=== PATIENT | female | born 1985 | race Caucasian/White ===

== ENCOUNTER 2016-05-13 20:44 | Emergency (ER) | payer MEDICAID ==
[2016-05-13] MEDS ORDERED: DIAZEPAM 2 MG TABLET PO ONE (22:23)
--- NOTE | 2016-05-13 22:45 | ER Document Report ---
ED General - General Chief Complaint: Psych Problem Stated Complaint: PANIC ATTACK TRAVEL OUTSIDE OF THE [place] IN LAST 30 DAYS: No - HPI Patient complains to provider of: manic Notes: Patient coming in for evaluation initially of anxiety. Patient has latter-day preoccupation stating that the Holy Ghost has impregnated her states that she needs Valium or Ativan to control her anxiety and also to help the anxiety that the baby is currently having. Patient states she has been compliant with her medications and very insistent on receiving a prescription for Valium Xanax or Ativan. Otherwise patient denies any homicidal suicidal ideation. Patient has a history of bipolar disease multiple psychiatric evaluations to this facility in the past. - Related Data Allergies/Adverse Reactions: latex [Latex] Allergy (Verified 05/14/16 00:38) Home Medications: Current Home Medications Benztropine Mesylate [Cogentin 1 mg Tablet] 1 mg PO DAILY 05/14/16 [History] Past Medical History - General Information source: Emergency Med Personnel - Social History Smoking Status: Unknown if Ever Smoked Family History: Reviewed & Not Pertinent Patient has suicidal ideation: No Patient has homicidal ideation: No Pulmonary Medical History: Reports: Hx Asthma Psychiatric Medical History: Reports: Hx Anxiety, Hx Bipolar Disorder Past Surgical History: Reports: Hx Section - x1 - Immunizations Hx Diphtheria, Pertussis, Tetanus Vaccination: No Review of Systems - Review of Systems Constitutional: No symptoms reported EENT: No symptoms reported Cardiovascular: No symptoms reported Respiratory: No symptoms reported Gastrointestinal: No symptoms reported Genitourinary: No symptoms reported Female Genitourinary: No symptoms reported Musculoskeletal: No symptoms reported Skin: No symptoms reported Hematologic/Lymphatic: No symptoms reported Neurological/Psychological: Anxiety, Other - Psychosis -: Yes All other systems reviewed and negative Physical Exam - Vital signs Vitals: Pulse Resp BP Pulse Ox 103 H 20 147/88 H 100 05/13/16 21:00 05/13/16 21:00 05/13/16 21:00 05/13/16 21:00 Interpretation: Normal - General General appearance: Appears well, Alert - HEENT Head: Normocephalic, Atraumatic Eyes: Normal Pupils: PERRL - Respiratory Respiratory status: No respiratory distress Chest status: Nontender Breath sounds: Normal Chest palpation: Normal - Cardiovascular Rhythm: Regular Heart sounds: Normal auscultation Murmur: No - Abdominal Inspection: Normal Distension: No distension Bowel sounds: Normal Tenderness: Nontender Organomegaly: No organomegaly - Back Back: Normal, Nontender - Extremities General upper extremity: Normal inspection, Nontender, Normal color, Normal ROM , Normal temperature General lower extremity: Normal inspection, Nontender, Normal color, Normal ROM , Normal temperature, Normal weight bearing. No: Jeancarlos's sign - Neurological Neuro grossly intact: Yes Cognition: Normal Orientation: AAOx4 [place] Coma Scale Eye Opening: Spontaneous Derrick Coma Scale Verbal: Oriented [place] Coma Scale Motor: Obeys Commands [place] Coma Scale Total: 15 Speech: Normal Motor strength normal: LUE, RUE, LLE, RLE Sensory: Normal - Psychological Associated symptoms: Anxious, Rastafari preoccupation - Skin Skin Temperature: Warm Skin Moisture: Dry Skin Color: Normal Course - Re-evaluation Re-evalutation: 05/14/16 04:31 Patient's lab work shows that the patient is not . Patient was given a dose of Valium and a dose of his otitis initially to calm her down. Patient will be held for psychiatric evaluation in the morning. Otherwise laboratory studies have no acute findings. - Vital Signs Vital signs: Temp Pulse Resp BP Pulse Ox 98.2 F 97 20 147/88 H 99 05/13/16 21:02 05/13/16 21:02 05/13/16 21:02 05/13/16 21:02 05/13/16 21:02 - Laboratory Result Diagrams: 05/13/16 22:47 05/13/16 22:47 Laboratory results interpreted by me: 05/13/16 05/13/16 22:47 22:47 WBC 11.7 H RDW 15.2 H Carbon Dioxide 21 L Salicylates < 1.0 L Acetaminophen < 10 L Discharge - Discharge Clinical Impression: Psychosis Qualifiers: Psychosis type: unspecified psychosis type Qualified Code(s): F29 - Unspecified psychosis not due to a substance or known physiological condition Condition: Fair Disposition: PSYCH HOSP/UNIT Referrals: ROSHAN ODELL DO [Primary Care Provider] - Follow up as needed
[2016-05-13 23:03] LABS: ABSOLUTE LYMPHOCYTES (AUTO) 4.2 10^3/uL (0.5-4.7); ABSOLUTE NEUT (AUTO) 6.5 10^3/uL (1.7-8.2); BASOPHILS % (AUTO) 0.2 % (0-2); EOSINOPHILS % (AUTO) 0.1 % (0-6); HEMATOCRIT 38.7 % (36.0-47.0); HEMOGLOBIN 12.7 g/dL (12.0-15.5); HGB HCT DIFFERENCE -0.6; LYMPHOCYTES % (AUTO) 35.6 % (13-45); MEAN CORPUSCULAR HEMOGLOBIN 27.5 pg (27.0-33.4); MEAN CORPUSCULAR HGB CONC 32.9 g/dL (32.0-36.0); MEAN CORPUSCULAR VOLUME 83 fl (80-97); MONOCYTES % (AUTO) 8.2 % (3-13); RED BLOOD COUNT 4.64 10^6/uL (3.72-5.28); RED CELL DISTRIBUTION WIDTH 15.2 % (11.5-14.0); SEGMENTED NEUTROPHILS % (AUTO) 55.9 % (42-78); WHITE BLOOD COUNT 11.7 10^3/uL (4.0-10.5)
[2016-05-13 23:26] LABS: ALANINE AMINOTRANSFERASE 41 U/L (9-52); ALBUMIN 4.4 g/dL (3.5-5.0); ALKALINE PHOSPHATASE 70 U/L (38-126); ANION GAP 14 (5-19); ASPARTATE AMINO TRANSFERASE 23 U/L (14-36); BILIRUBIN,TOTAL 0.4 mg/dL (0.2-1.3); BLOOD UREA NITROGEN 15 mg/dL (7-20); CALCIUM 9.9 mg/dL (8.4-10.2); CARBON DIOXIDE 21 mmol/L (22-30); CHLORIDE 107 mmol/L (98-107); CREATININE RESULT 0.67 mg/dL (0.52-1.25); GLUCOSE 84 mg/dL (75-110); POTASSIUM 4.2 mmol/L (3.6-5.0); SODIUM 141.9 mmol/L (137-145); TOTAL PROTEIN 7.2 g/dL (6.3-8.2)
[2016-05-13 23:28] LABS: ALCOHOL < 10 mg/dL (NONE DETECTED)
[2016-05-13] MEDS ORDERED: OLANZAPINE 5 MG TAB.RAPDIS PO ONE (23:28)
[2016-05-13 23:44] LABS: APPEARANCE,URINE CLEAR; BILIRUBIN,URINE NEGATIVE (NEGATIVE); GLUCOSE, URINE NEGATIVE (NEGATIVE); KETONES,URINE NEGATIVE (NEGATIVE); LEUKOCYTE ESTERASE,URINE NEGATIVE (NEGATIVE); NITRITE,URINE NEGATIVE (NEGATIVE); PROTEIN,URINE NEGATIVE (NEGATIVE); URINE SPECIFIC GRAVITY 1.014; UROBILINOGEN,URINE NEGATIVE mg/dL (<2.0)
[2016-05-13 23:58] LABS: URINE BARBITURATES SCREEN NEGATIVE; URINE METHADONE SCREEN NEGATIVE; URINE PHENCYCLIDINE SCREEN NEGATIVE
--- NOTE | 2016-05-14 00:01 | EKG REPORT ---
SEVERITY:- BORDERLINE ECG - SINUS RHYTHM INFERIOR Q WAVES, PROBABLY NORMAL VARIATION BORDERLINE PROLONGED QT INTERVAL : Confirmed by: Katya Ya 14-May-2016 00:00:25
[2016-05-14] MEDS ORDERED: MULTIVITAMIN TABLET PO SCH (10:00)
[2016-05-14] MEDS ORDERED: OLANZAPINE 5 MG TABLET PO SCH (10:00)
[2016-05-14] MEDS ORDERED: (PENDING PHARMACY ID) (Lurasidone Hcl [Latuda] 60 MG) PO SCH (10:00)
[2016-05-14] MEDS ORDERED: BENZTROPINE MESYLATE 1 MG TABLET PO SCH (10:00)
--- NOTE | 2016-05-14 10:07 | ER Document Report ---
Doctor's Note Notes: 05/14/16 10:06 Rounds: Chart reviewed and patient interviewed. Requesting Valium for her anxiety and panic attacks. Will order Vistaril. Vital signs all been normal. Lab studies showed a white count of 11,700, probably of no clinical significance , and otherwise all lab studies were normal. Patient was described as being likely psychotic on her arrival, but seems to be much calmer now and answering questions appropriately. She has received some Zyprexa as well as Thorazine. Patient appears to be medically stable for transfer or discharge. Jolene Veras M.D.
[2016-05-14] MEDS ORDERED: HYDROXYZINE PAMOATE 50 MG CAPSULE PO ONE (10:08)
--- NOTE | 2016-05-14 12:19 | PSYCHOLOGICAL NOTE ---
Psych Note - Psych Note Psych Note: Patient is a 30 year old female who presented overnight after calling EMS with c /o anxiety. Note, patient is well known to this clinician and this Department for multiple prior episodes of similar etiology. Also note, patient's baseline functioning includes chronic reports/delusions of , rape, delivering babies, someone breaking into her home to rape her or her mother, etc. Additionally, patient often requests medication to assist with her "nerves" or to help her sleep, as was the case again today despite her sleeping upon me entering the room. Patient states she called 911 because she was anxious, but reports she "doesn't want to get into all that." Patient did state she did not want to hurt herself or anyone else. [facility] state they did not know the patient was here, but are happy to come help her home. Worker reports the patient did not call the crisis phone to report anxiety. [facility] reports no new concerns with the patient and state last known verbal contact with her was yesterday. Patient was A&O. Mood was euthymic with normal affect. Patient denies suicidal/ homicidal ideations, intent, plan, or means. Patient denies A/ Vh; delusions were noted. Thought processes were guarded. Conversational speech was WNL for this patient. Intellectual abilities were estimated within lower average range. Attention and focus were poor. Insight, judgment, and impulse control were poor. 295.70 (F25.0) Schizoaffective Disorder, Bipolar type, per history Patient is recommended for rescind IVC and psychiatrically cleared for discharge. Patient is considered to be at her baseline, as outlined above. Patient has a lengthy history of frequently calling EMS when upset, or due to her delusions regarding rape and or . Patient's [facility] provider, [facility] reports they will present and transport the patient home, and work with her to transition her back into her home environment. Note, patient was just discharged from the ED last week. I consulted with Dr. Castaneda in regards to the care and management of this patient.
[2016-05-14 13:26] VITALS: BP 123/70
[2016-05-14] MEDS ORDERED: CHLORPROMAZINE HCL 50 MG TABLET PO SCH (16:00)
== END 2016-05-14 13:26 | disposition home or self-care (01) ==
LOC: ER 20:44
DX: F29 Unspecified psychosis not due to a substance or known physiological condition (principal); F41.9 Anxiety disorder, unspecified; F25.0 Schizoaffective disorder, bipolar type
CPT/HCPCS: 93005; 99285; 36415; 84703; 85025; 80053; 81001; 93010; G0479 ×4; J3490 ×5; 80307

== ENCOUNTER 2016-05-18 17:21 | Emergency (ER) | payer MEDICAID, OTHER ==
--- NOTE | 2016-05-18 17:31 | ER Document Report ---
ED Medical Screen (RME) - General Stated Complaint: ANKLE PAIN Mode of Arrival: Medic Information source: Patient Notes: pt rolled ankle after stepping out of her house. Pt c/o pain to left ankle. EMS reports she ambulated without difficulty TRAVEL OUTSIDE OF THE [place] IN LAST 30 DAYS: No - Related Data Allergies/Adverse Reactions: latex [Latex] Allergy (Verified 05/18/16 17:28) Past Medical History Pulmonary Medical History: Reports: Hx Asthma Psychiatric Medical History: Reports: Hx Anxiety, Hx Bipolar Disorder Past Surgical History: Reports: Hx Section - x1 - Immunizations Hx Diphtheria, Pertussis, Tetanus Vaccination: No Physical Exam - Extremities General lower extremity: Tender - left ankle
--- NOTE | 2016-05-18 17:47 | ER Document Report ---
ED Extremity Problem, Lower - General Chief Complaint: Ankle Injury Stated Complaint: ANKLE PAIN Mode of Arrival: Medic Notes: The patient is a 30-year-old female, past medical history bipolar, presents with left ankle pain after she rotated the ankle stepping out of the door. She is now having pain and swelling and is requesting an Cem wrap and Tylenol. She is ambulating on scene when the ambulance arrived. She denies numbness, tingling, difficulty walking, rash or open wounds. TRAVEL OUTSIDE OF THE [place] IN LAST 30 DAYS: No - Related Data Allergies/Adverse Reactions: latex [Latex] Allergy (Verified 05/18/16 17:28) Past Medical History - General Information source: Patient - Social History Smoking Status: Unknown if Ever Smoked Chew tobacco use (# tins/day): No Frequency of alcohol use: None Drug Abuse: None Family History: Reviewed & Not Pertinent Patient has suicidal ideation: No Patient has homicidal ideation: No Pulmonary Medical History: Reports: Hx Asthma Psychiatric Medical History: Reports: Hx Anxiety, Hx Bipolar Disorder Past Surgical History: Reports: Hx Section - x1 - Immunizations Hx Diphtheria, Pertussis, Tetanus Vaccination: No Review of Systems - Review of Systems Notes: REVIEW OF SYSTEMS: CONSTITUTIONAL: -fevers, -chills EENT: Denies eye, ear, throat, or mouth pain or symptoms. Denies nasal or sinus congestion. CARDIOVASCULAR: Denies chest pain, syncope. RESPIRATORY: Denies cough, cold, or chest congestion. Denies shortness of breath, difficulty breathing, or wheezing. GASTROINTESTINAL: Denies abdominal pain. Denies nausea, vomiting, or diarrhea. Denies constipation. GENITOURINARY: Denies difficulty urinating, painful urination, burning, frequency, or blood in urine. MUSCULOSKELETAL: Denies neck or back pain. Left ankle pain and swelling. SKIN: Denies rash or skin lesions. HEMATOLOGIC: Denies easy bruising or bleeding. LYMPHATIC: Denies swollen, enlarged glands. NEUROLOGICAL: Denies altered mental status or loss of consciousness. Denies headache. Denies weakness or paralysis or loss of use of either side. Denies problems with gait or speech. Denies sensory or motor loss. PSYCHIATRIC: Denies anxiety or stress or depression. ALL OTHER SYSTEMS REVIEWED AND NEGATIVE. Physical Exam - Vital signs Vitals: Temp Pulse Resp BP Pulse Ox 97.4 F 105 H 22 H 124/82 98 05/18/16 17:28 05/18/16 17:28 05/18/16 17:28 05/18/16 17:28 05/18/16 17:28 - Notes Notes: PHYSICAL EXAMINATION: GENERAL: Well-appearing, well-nourished and in no acute distress. HEAD: Atraumatic, normocephalic. EYES: Pupils equal round and reactive to light, extraocular movements intact, sclera anicteric, conjunctiva are normal. ENT: nares patent, oropharynx clear without exudates. Moist mucous membranes. NECK: Normal range of motion, supple without lymphadenopathy LUNGS: Breath sounds clear to auscultation bilaterally and equal. No wheezes rales or rhonchi. HEART: Regular rate and rhythm without murmurs ABDOMEN: Soft, nontender, normoactive bowel sounds. No guarding, no rebound. No masses appreciated. EXTREMITIES: Normal range of motion, no pitting or edema. No cyanosis. Mild left ankle swelling, left distal fibula tenderness. NEUROLOGICAL: Cranial nerves grossly intact. Normal speech, normal gait. Normal sensory, motor, and reflex exams. PSYCH: Normal mood, normal affect. SKIN: Warm, Dry, normal turgor, no rashes or lesions noted. Course - Re-evaluation Re-evalutation: Patient has very small avulsion fracture of the distal tip of her fibula. No base of fifth metatarsal tenderness. N/V intact distally. Will place patient in ankle splint and provide crutches with follow-up at orthopedic. - Vital Signs Vital signs: Temp Pulse Resp BP Pulse Ox 97.4 F 105 H 14 124/82 98 05/18/16 17:28 05/18/16 17:28 05/18/16 18:26 05/18/16 17:28 05/18/16 17:28 - Diagnostic Test Radiology reviewed: Image reviewed, Reports reviewed Radiology results interpreted by me: Small avulsion fracture of the distal tip of the left fibula. Procedures - Immobilization Left Ankle Pre-Proc Neuro Vasc Exam: Normal Immobilizer type: Ankle stirrup, Crutches Performed by: PCT Post-Proc Neuro Vasc Exam: Normal Alignment checked and good: Yes Discharge - Discharge Clinical Impression: Fracture of distal end of left fibula Qualifiers: Encounter type: initial encounter Fracture type: closed Fracture morphology: other fracture Qualified Code(s): S82.832A - Other fracture of upper and lower end of left fibula, initial encounter for closed fracture Condition: Good Disposition: HOME, SELF-CARE Additional Instructions: Fracture of Distal Fibula You have a very small avulsion fracture at the end of the fibula, the smaller bone in the lower leg. The fracture is across the bony bump on the outer side of the ankle. This fracture will usually heal well, but must be protected from the pull of ligaments and tendons at the ankle. If this fracture rotates out of position (or is felt likely to rotate), it must be operated on. Initially, the extremity should be kept elevated, with ice packs applied frequently. This fracture is usually treated with a cast or walking boot. If a walking boot has been selected, it's critical that it NOT be removed without the doctor's approval, not even for sleeping or baths. Healing of this fracture takes about four to eight weeks. Younger patients heal more quickly. An X-ray is usually required during healing to check for complications and to assess healing. Call the doctor or return at once if there is severe swelling, increasing pain, or numbness in the foot. SPRAIN: Your injury is a sprain. A sprain results from stretching or tearing of the ligaments, usually from a twisting injury. The ligaments will require time and protection in order to heal properly. Many sprains are quite disabling and should be taken seriously. The usual initial treatment of sprains is cold packs, elevation, and rest of the injured area. Your physician has assessed the seriousness of your ligament injury, and has outlined a treatment plan. Understand that this treatment may change, depending on how you progress. If a re-examination was recommended, it is important that you follow up as instructed. Call the doctor any time if there is severe pain, numbness, or loss of function in the injured area. CEM WRAP: A compression dressing (cem wrap) has been placed. This helps hold the area still. It limits swelling and internal bleeding. The wrap should be comfortably snug -- not tight. You should feel a sense of pressure, but not severe pain under the wrap. Unless the physician tells you otherwise, you can adjust the wrap for comfort. If the wrap causes symptoms suggesting it's too tight -- uncomfortable pressure, swelling or discoloration beyond the wrap, numbness, or severe pain - - you must loosen the wrap. If these symptoms don't resolve promptly, return for re-evaluation. SPRAINED ANKLE: Your sprained ankle results from stretching or tearing of the ligaments which support the ankle. This usually results from twisting the foot inward and under. The ligaments will require time and protection in order to heal properly. Many ankle sprains are quite disabling, and should be taken seriously. The usual treatment for an ankle sprain is cold packs; protection with tape , splints, or wraps; elevation; and staying off the ankle for at least a day. As the ankle improves, you can walk IF it's not painful to bear weight. Sports are best postponed until healing is complete. More serious sprains usually require strengthening exercises after early healing. Your physician has assessed the seriousness of the ligament injury to your ankle. However, the treatment may change, depending on how your ankle progresses. If further exams were recommended, it is important that you follow through. Call the doctor if your foot becomes numb, painful, or severely swollen. ICE & ELEVATION: Apply ice packs frequently against the painful area. Many different schedules are recommended, such as "20 minutes on, 20 minutes off" or "one hour ice, two hours rest." If you need to work, you may need to go longer between ice treatments. You should plan to have the area ice packed AT LEAST one- fourth of the time. The ice should be applied over the wrap, tape, or splint, or over a layer of cloth -- not directly against the skin. Some ice bags have a built-in cloth and can be put directly on the skin. Your injured part should be elevated as much as possible over the next 48 hours. Try to keep the injury above the level of the heart. Avoid use of the injured area. Elevation and rest will decrease the swelling. USE OF [id number] IBUPROFEN: Ibuprofen (Advil, Nuprin, Medipren, Motrin IB) is a medication for fever and pain control. In addition, it has anti- inflammatory effects which may be beneficial, especially in the treatment of injuries. It's best to take ibuprofen with food. Persons with ulcer disease or allergy to aspirin should notify their physician of this before taking ibuprofen. Ibuprofen can be given every four to six hours, for a total of four doses daily. Age Pain or fever dose Antiinflammatory dose 6-8 yr 200 mg (1 tab) 200 mg (1 tab) 9-11 yr 200 mg (1 tab) 200-400 mg (1-2 tab) 11-14 yr 200-400 mg (1-2 tab) 400 mg (2 tab) 15-adult 400 mg (2 tab) 600 mg (3 tab) ORAL NARCOTIC MEDICATION: You have been given a prescription for pain control. This medication is a narcotic. It's best taken with food, as nausea can result if taken on an empty stomach. Don't operate machinery or drive within six hours of taking this medication. Do not combine this medicine with alcohol, or with any medication which can cause sedation (such as cold tablets or sleeping pills) unless you get permission from the physician. Narcotics tend to cause constipation. If possible, drink plenty of fluids and eat a diet high in fiber and fruits. Please be aware that prescription narcotics also have the potential for abuse. People become addicted to these medications because of the general sense of wellbeing that they induce. This feeling along with a significant reduction in tension, anxiety, and aggression provides a stimulating seductive quality to these drugs. Once your pain is under control, we encourage you to discard your unused narcotics. FOLLOW-UP CARE: If you have been referred to a physician for follow-up care, call the physician s office for an appointment as you were instructed or within the next two days. If you experience worsening or a significant change in your symptoms, notify the physician immediately or return to the Emergency Department at any time for re-evaluation. Prescriptions: Ibuprofen [Motrin 600 Mg Tablet] 600 mg PO TID #15 tablet Referrals: LIN GONSALVES MD [ACTIVE STAFF] - Follow up as needed
[2016-05-18] MEDS ORDERED: IBUPROFEN 600 MG TABLET PO ONE (18:19)
[2016-05-18 18:36] VITALS: BP 122/78
== END 2016-05-18 18:37 | disposition home or self-care (01) ==
LOC: ER 17:21
PROC: 2W3TX1Z Immobilization of Left Foot using Splint (ICD-10-PCS; principal; 2016-05-18)
DX: S82.832A Other fracture of upper and lower end of left fibula, initial encounter for closed fracture (principal); M25.572 Pain in left ankle and joints of left foot; X50.1XXA Overexertion from prolonged static or awkward postures, initial encounter
CPT/HCPCS: 99283; 73610; 29515; L1902; J3490

== ENCOUNTER 2016-05-31 09:09 | Emergency (ER) | payer MEDICAID, OTHER ==
[2016-05-31 09:23] VITALS: BP 122/75
--- NOTE | 2016-05-31 09:47 | ER Document Report ---
ED Neck/Back Problem - General Mode of Arrival: Ambulatory Information source: Patient TRAVEL OUTSIDE OF THE [place] IN LAST 30 DAYS: No - HPI Patient complains to provider of: Pain, Upper back Onset: This morning Where: Home Onset: Sudden - Upon awaking this morning Timing: Still present Associated symptoms: None - General Chief Complaint: Back Pain Stated Complaint: BACK PAIN Notes: Patient is a 30-year-old female presenting to the emergency department via EMS due to left upper back pain. Patient thinks that she may have pulled a muscle. Patient also states that she was recently taken off her Clonazepam because her doctor told her that is not something to stay on long-term. Patient requests that we prescribed her Clonazepam. After review of the controlled substance database, patient was given a one-month supply of clonazepam at the end of January, 1 month at the end of February, and then a few days later, she was given another 2 week supply, and finally one week after that she was given only a 3 day supply. Patient is now only regularly taking Zyprexa and Melatonin. (LETICIA SANTANA) - Related Data Allergies/Adverse Reactions: latex [Latex] Allergy (Verified 05/31/16 09:19) Past Medical History - General Information source: Patient - Social History Smoking Status: Current Some Day Smoker Chew tobacco use (# tins/day): No Frequency of alcohol use: None Drug Abuse: None Family History: Reviewed & Not Pertinent Patient has suicidal ideation: No Patient has homicidal ideation: No Pulmonary Medical History: Reports: Hx Asthma Renal/ Medical History: Denies: Hx Peritoneal Dialysis Psychiatric Medical History: Reports: Hx Anxiety, Hx Bipolar Disorder Past Surgical History: Reports: Hx Section - x1 - Immunizations Hx Diphtheria, Pertussis, Tetanus Vaccination: No Review of Systems - Review of Systems Constitutional: No symptoms reported EENT: No symptoms reported Cardiovascular: No symptoms reported Respiratory: No symptoms reported Gastrointestinal: No symptoms reported Genitourinary: No symptoms reported Female Genitourinary: No symptoms reported Musculoskeletal: See HPI, Back pain, Muscle pain Skin: No symptoms reported Hematologic/Lymphatic: No symptoms reported Neurological/Psychological: No symptoms reported -: Yes All other systems reviewed and negative Physical Exam - General General appearance: Appears well, Alert - HEENT Head: Normocephalic, Atraumatic Eyes: Normal Pupils: PERRL - Respiratory Respiratory status: No respiratory distress Breath sounds: Normal - Cardiovascular Rhythm: Regular Heart sounds: Normal auscultation Murmur: No - Abdominal Inspection: Normal Distension: No distension Bowel sounds: Normal Tenderness: Nontender Organomegaly: No organomegaly - Back Back: Tender - Tenderness over left trapezius - Extremities General upper extremity: Normal inspection General lower extremity: Normal inspection - Neurological Neuro grossly intact: Yes Cognition: Normal Derrick Coma Scale Eye Opening: Spontaneous [place] Coma Scale Verbal: Oriented [place] Coma Scale Motor: Obeys Commands [place] Coma Scale Total: 15 Speech: Normal Discharge - Discharge Clinical Impression: Strain of left trapezius muscle Qualifiers: Encounter type: initial encounter Qualified Code(s): S46.812A - Strain of other muscles, fascia and tendons at shoulder and upper arm level, left arm, initial encounter Condition: Stable Disposition: HOME, SELF-CARE Additional Instructions: Muscle Strain: You MAY have strained a muscle. This often occurs with strenuous exertion , or during an injury that suddenly stretches the muscle. The seriousness of a strain varies. Some strains heal within days, others cause problems for months. X-rays cannot show a muscle strain. X-rays are taken only if symptoms suggest that a fracture could be present. The usual treatment of a muscle strain is rest and ice packs. Sometimes, a sling, splint, or crutches may be necessary to rest the muscle. The muscle can be used again once pain subsides. Severe strains require a special exercise and stretching program to prevent permanent stiffness and disability. Your doctor will advise you if this will be necessary. Call the doctor immediately if pain or swelling becomes severe, or if numbness or discoloration develop. TAKE THE MUSCLE RELAXER PRESCRIBED FOR THE NEXT FEW DAYS. TAKE TYLENOL AND IBUPROFEN FOR PAIN IF NEEDED. FOLLOW UP WITH YOUR DOCTOR. Prescriptions: Cyclobenzaprine HCl [Flexeril 5 mg Tablet] 5 mg PO TID PRN #10 tablet PRN Reason: Scribe Attestation: 05/31/16 12:27 I personally performed the services described in the documentation, reviewed and edited the documentation which was dictated to the scribe in my presence, and it accurately records my words and actions. (DESTINY PELAEZ) Scribe Documentation - Scribe Written by Bc:: Leticia Santana 05/31/2016 0947 acting as scribe for :: Sravanthi
== END 2016-05-31 10:11 | disposition home or self-care (01) ==
LOC: ER 09:09
DX: S29.012A Strain of muscle and tendon of back wall of thorax, initial encounter (principal); X58.XXXA Exposure to other specified factors, initial encounter; F41.9 Anxiety disorder, unspecified; F31.9 Bipolar disorder, unspecified; J45.909 Unspecified asthma, uncomplicated; F17.200 Nicotine dependence, unspecified, uncomplicated; Z79.899 Other long term (current) drug therapy; Z91.040 Latex allergy status
CPT/HCPCS: 99283

== ENCOUNTER 2016-06-29 19:28 | Emergency (ER) | payer MEDICAID ==
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
[2016-06-29 20:18] LABS: ABSOLUTE EOSINOPHILS # (AUTO) 0.5 10^3/uL (0.0-0.6); ABSOLUTE LYMPHOCYTES (AUTO) 4.3 10^3/uL (0.5-4.7); ABSOLUTE MONOCYTES (AUTO) 0.8 10^3/uL (0.1-1.4); ABSOLUTE NEUT (AUTO) 5.3 10^3/uL (1.7-8.2); BASOPHILS % (AUTO) 0.4 % (0-2); EOSINOPHILS % (AUTO) 4.1 % (0-6); HEMOGLOBIN 12.2 g/dL (12.0-15.5); HGB HCT DIFFERENCE -0.4; LYMPHOCYTES % (AUTO) 39.1 % (13-45); MEAN CORPUSCULAR HEMOGLOBIN 27.7 pg (27.0-33.4); MEAN CORPUSCULAR VOLUME 84 fl (80-97); MONOCYTES % (AUTO) 7.6 % (3-13); RED BLOOD COUNT 4.41 10^6/uL (3.72-5.28); RED CELL DISTRIBUTION WIDTH 15.2 % (11.5-14.0); SEGMENTED NEUTROPHILS % (AUTO) 48.8 % (42-78); WHITE BLOOD COUNT 10.9 10^3/uL (4.0-10.5)
[2016-06-29 20:21] LABS: APPEARANCE,URINE CLEAR; BILIRUBIN,URINE NEGATIVE (NEGATIVE); GLUCOSE, URINE NEGATIVE (NEGATIVE); KETONES,URINE NEGATIVE (NEGATIVE); LEUKOCYTE ESTERASE,URINE NEGATIVE (NEGATIVE); NITRITE,URINE NEGATIVE (NEGATIVE); PROTEIN,URINE NEGATIVE (NEGATIVE); URINE SPECIFIC GRAVITY 1.004; UROBILINOGEN,URINE NEGATIVE mg/dL (<2.0)
[2016-06-29 20:30] LABS: ALANINE AMINOTRANSFERASE 33 U/L (9-52); ALBUMIN 3.9 g/dL (3.5-5.0); ALCOHOL < 10 mg/dL (NONE DETECTED); ALKALINE PHOSPHATASE 72 U/L (38-126); ANION GAP 10 (5-19); ASPARTATE AMINO TRANSFERASE 18 U/L (14-36); BILIRUBIN,TOTAL 0.5 mg/dL (0.2-1.3); BLOOD UREA NITROGEN 12 mg/dL (7-20); CALCIUM 9.6 mg/dL (8.4-10.2); CARBON DIOXIDE 25 mmol/L (22-30); CHLORIDE 106 mmol/L (98-107); GLUCOSE 74 mg/dL (75-110); POTASSIUM 3.9 mmol/L (3.6-5.0); TOTAL PROTEIN 7.2 g/dL (6.3-8.2)
[2016-06-29 20:55] LABS: URINE BARBITURATES SCREEN NEGATIVE; URINE METHADONE SCREEN NEGATIVE; URINE OPIATES LOW NEGATIVE; URINE PHENCYCLIDINE SCREEN NEGATIVE
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
[2016-06-29] MEDS ORDERED: LORAZEPAM 1 MG TABLET PO ONE (23:28)
[2016-06-29] MEDS ORDERED: HALOPERIDOL 5 MG TABLET PO ONE (23:28)
--- NOTE | 2016-06-30 10:03 | ER Document Report ---
Doctor's Note Notes: 06/30/16 10:02 Rounds: Chart reviewed. Patient sleeping soundly and snoring so not awakened. Review of her chart shows that patient is not , despite the fact that she has repeatedly claimed to be in the recent past and on this visit. Vital signs are all normal. Lab studies are essentially normal. Drug screen is negative. This is this patient's sixth emergency department visit here for mental health issues or evaluation since December,, an average of one visit per month. Patient appears to be medically stable for transfer or discharge. Jolene Veras M.D.
[2016-06-30] MEDS ORDERED: FLUPHENAZINE DECANOATE INJ 125 MG/5 ML VIAL IM ONE (11:30)
[2016-06-30 14:29] VITALS: BP 117/59
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
[2016-06-30] MEDS ORDERED: SERTRALINE HCL 50 MG TABLET PO SCH (22:00)
[2016-06-30] MEDS ORDERED: OLANZAPINE 5 MG TABLET PO SCH (22:00)
[2016-06-30] MEDS ORDERED: BENZTROPINE MESYLATE 1 MG TABLET PO SCH (22:00)
== END 2016-06-30 16:39 | disposition home or self-care (01) ==
LOC: ER 19:28
DX: R44.3 Hallucinations, unspecified (principal); F22 Delusional disorders; F20.9 Schizophrenia, unspecified
CPT/HCPCS: 99285; 96372; 36415; 80307 ×2; 84703; 85025; 80053; 81001; J2680; J3490

== ENCOUNTER 2016-07-04 12:17 | Emergency (ER) | payer MEDICAID ==
[2016-07-04 12:28] VITALS: BP 132/82
--- NOTE | 2016-07-04 12:33 | ER Document Report ---
ED Medical Screen (RME) - General Chief Complaint: Psych Problem Stated Complaint: PSYCH EVALUATION Mode of Arrival: Ambulatory Information source: Patient Notes: 30-year-old female with psych history presents to the ED via EMS for reported seizure activity. Cannot recall details of seizure. Denies history of seizures. Denies SI/HI. I have greeted and performed a rapid initial assessment of this patient. A comprehensive ED assessment and evaluation of the patient, analysis of test results and completion of the medical decision making process will be conducted by additional ED providers. TRAVEL OUTSIDE OF THE [place] IN LAST 30 DAYS: No - Related Data Allergies/Adverse Reactions: latex [Latex] Allergy (Verified 07/04/16 12:29) Past Medical History - Social History Chew tobacco use (# tins/day): No Frequency of alcohol use: None Drug Abuse: None Pulmonary Medical History: Reports: Hx Asthma Renal/ Medical History: Denies: Hx Peritoneal Dialysis Psychiatric Medical History: Reports: Hx Anxiety, Hx Bipolar Disorder Past Surgical History: Reports: Hx Section - x1 - Immunizations Hx Diphtheria, Pertussis, Tetanus Vaccination: No Physical Exam - Vital signs Vitals: Temp Pulse Resp BP Pulse Ox 97.9 F 99 20 132/82 H 97 07/04/16 12:27 07/04/16 12:07/04/16 12:07/04/16 12:07/04/16 12:27 - General General appearance: Appears well, Alert In distress: None - Respiratory Respiratory status: No respiratory distress - Cardiovascular Rhythm: Regular Pulses: Normal: Radial Normal capillary refill: Yes Course - Vital Signs Vital signs: Temp Pulse Resp BP Pulse Ox 97.9 F 99 20 132/82 H 97 07/04/16 12:27 07/04/16 12:27 07/04/16 12:27 07/04/16 12:27 07/04/16 12:27
[2016-07-04 13:15] LABS: ABSOLUTE EOSINOPHILS # (AUTO) 0.3 10^3/uL (0.0-0.6); ABSOLUTE LYMPHOCYTES (AUTO) 3.2 10^3/uL (0.5-4.7); ABSOLUTE MONOCYTES (AUTO) 0.4 10^3/uL (0.1-1.4); ABSOLUTE NEUT (AUTO) 6.6 10^3/uL (1.7-8.2); BASOPHILS % (AUTO) 0.1 % (0-2); EOSINOPHILS % (AUTO) 3.1 % (0-6); HEMATOCRIT 39.3 % (36.0-47.0); HGB HCT DIFFERENCE -0.3; LYMPHOCYTES % (AUTO) 30.4 % (13-45); MEAN CORPUSCULAR HEMOGLOBIN 27.4 pg (27.0-33.4); MEAN CORPUSCULAR HGB CONC 33.2 g/dL (32.0-36.0); MEAN CORPUSCULAR VOLUME 83 fl (80-97); RED BLOOD COUNT 4.75 10^6/uL (3.72-5.28); RED CELL DISTRIBUTION WIDTH 15.2 % (11.5-14.0); SEGMENTED NEUTROPHILS % (AUTO) 62.4 % (42-78); WHITE BLOOD COUNT 10.5 10^3/uL (4.0-10.5)
[2016-07-04 13:23] LABS: APPEARANCE,URINE SLIGHTLY-CLOUDY; BILIRUBIN,URINE NEGATIVE (NEGATIVE); GLUCOSE, URINE NEGATIVE (NEGATIVE); KETONES,URINE NEGATIVE (NEGATIVE); LEUKOCYTE ESTERASE,URINE TRACE (NEGATIVE); NITRITE,URINE NEGATIVE (NEGATIVE); PROTEIN,URINE NEGATIVE (NEGATIVE); URINE SPECIFIC GRAVITY 1.016; UROBILINOGEN,URINE NEGATIVE mg/dL (<2.0)
[2016-07-04 13:35] LABS: ALANINE AMINOTRANSFERASE 36 U/L (9-52); ALBUMIN 4.6 g/dL (3.5-5.0); ALKALINE PHOSPHATASE 85 U/L (38-126); ANION GAP 14 (5-19); ASPARTATE AMINO TRANSFERASE 25 U/L (14-36); BILIRUBIN,TOTAL 0.5 mg/dL (0.2-1.3); BLOOD UREA NITROGEN 13 mg/dL (7-20); CALCIUM 10.4 mg/dL (8.4-10.2); CARBON DIOXIDE 20 mmol/L (22-30); CHLORIDE 107 mmol/L (98-107); CREATININE RESULT 0.85 mg/dL (0.52-1.25); GLUCOSE 137 mg/dL (75-110); MAGNESIUM 1.9 mg/dL (1.6-2.3); POTASSIUM 4.2 mmol/L (3.6-5.0); SODIUM 140.5 mmol/L (137-145); TOTAL PROTEIN 7.7 g/dL (6.3-8.2)
[2016-07-04 13:38] LABS: ALCOHOL < 10 mg/dL (NONE DETECTED)
[2016-07-04 13:45] LABS: URINE BARBITURATES SCREEN NEGATIVE; URINE METHADONE SCREEN NEGATIVE; URINE OPIATES LOW NEGATIVE; URINE PHENCYCLIDINE SCREEN NEGATIVE
== END 2016-07-04 13:21 | disposition left against medical advice (07) ==
LOC: ER 12:17
DX: Z04.8 Encounter for examination and observation for other specified reasons (principal); J45.909 Unspecified asthma, uncomplicated; Z53.20 Procedure and treatment not carried out because of patient's decision for unspecified reasons
CPT/HCPCS: 36415; 80053; 80307; 81001; 83735; 84703; 85025; 99281

== ENCOUNTER 2016-08-06 10:28 | Emergency (ER) | payer MEDICAID ==
[2016-08-06 10:57] VITALS: BP 114/77
--- NOTE | 2016-08-06 11:00 | ER Document Report ---
ED Medical Screen (RME) - General Stated Complaint: RASH ON FOOT Notes: Patient complains a rash to bilateral upper feet after wearing plastic shoes while she was incarcerated. Was given a cream, but states it is not helping. I have greeted and performed a rapid initial assessment of this patient. A comprehensive ED assessment and evaluation of the patient, analysis of test results and completion of the medical decision making process will be conducted by additional ED providers. TRAVEL OUTSIDE OF THE [place] IN LAST 30 DAYS: No - Related Data Allergies/Adverse Reactions: No Known Allergies Allergy (Verified 08/06/16 10:58) Past Medical History Pulmonary Medical History: Reports: Hx Asthma Renal/ Medical History: Denies: Hx Peritoneal Dialysis Psychiatric Medical History: Reports: Hx Anxiety, Hx Bipolar Disorder Past Surgical History: Reports: Hx Section - x1 - Immunizations Hx Diphtheria, Pertussis, Tetanus Vaccination: No Physical Exam - Vital signs Vitals: Temp Pulse Resp BP Pulse Ox 97.8 F 79 20 114/77 98 08/06/16 10:56 08/06/16 10:56 08/06/16 10:56 08/06/16 10:56 08/06/16 10:56 - Skin Notes: Red, slightly excoriated area to bilateral upper feet. Course - Vital Signs Vital signs: Temp Pulse Resp BP Pulse Ox 97.8 F 79 20 114/77 98 08/06/16 10:56 08/06/16 10:56 08/06/16 10:56 08/06/16 10:56 08/06/16 10:56
[2016-08-06] MEDS ORDERED: NYSTATIN/TRIAMCIN OINTMENT 15 GM TP ONE (12:15)
--- NOTE | 2016-08-06 12:22 | ER Document Report ---
ED Skin Rash/Insect Bite/Abscs - General Time seen by provider: 12:17 Mode of Arrival: Ambulatory Information source: Patient TRAVEL OUTSIDE OF THE [place] IN LAST 30 DAYS: No - HPI Patient complains to provider of: Skin rash/lesion Onset: Other - 2 weeks Onset/Duration: Gradual Quality of pain: No pain Severity: None Pain Level: Denies Skin Character: Rash Quality of rash: Itchy, Painful Identify cause: No Exacerbated by: Denies Relieved by: Denies Similar symptoms previously: Yes Recently seen / treated by doctor: No - General Chief Complaint: Rash Stated Complaint: RASH ON FOOT Notes: 30-year-old female presents to ED to rash top of both feet. She states she just [facility] where she was wearing [facility] shoes in the [facility]. Her last missed her period was 08/06/2016. (BRIGID EARLY) - Related Data Allergies/Adverse Reactions: No Known Allergies Allergy (Verified 08/06/16 10:58) Past Medical History - General Information source: Patient - Social History Smoking Status: Current Every Day Smoker Cigarette use (# per day): Yes - half a pack a day Chew tobacco use (# tins/day): No Smoking Education Provided: Yes - (2 minute Frequency of alcohol use: Social Drug Abuse: None Occupation: none Lives with: Alone Family History: Arthritis, DM, Hyperlipidemia, Hypertension Patient has suicidal ideation: No Patient has homicidal ideation: No - Past Medical History Cardiac Medical History: Reports: None Pulmonary Medical History: Reports: Hx Asthma EENT Medical History: Reports: None Neurological Medical History: Reports: None Renal/ Medical History: Reports: None Malignancy Medical History: Reports: None GI Medical History: Reports: None Musculoskeltal Medical History: Reports None Skin Medical History: Reports None Psychiatric Medical History: Reports: Hx Anxiety, Hx Bipolar Disorder Traumatic Medical History: Reports: None Infectious Medical History: Reports: None Surgical Hx: Negative Past Surgical History: Reports: None, Hx Section - x1 - Immunizations Hx Diphtheria, Pertussis, Tetanus Vaccination: No Review of Systems - Review of Systems Constitutional: No symptoms reported EENT: No symptoms reported Cardiovascular: No symptoms reported Respiratory: No symptoms reported Gastrointestinal: No symptoms reported Genitourinary: No symptoms reported Female Genitourinary: No symptoms reported Musculoskeletal: No symptoms reported Skin: Rash - Tops of bilateral feet for 2 weeks states she's been in [facility] when plastic shoes Hematologic/Lymphatic: No symptoms reported Neurological/Psychological: No symptoms reported -: Yes All other systems reviewed and negative Physical Exam - Vital signs Interpretation: Normal - General General appearance: Appears well, Alert - HEENT Head: Normocephalic, Atraumatic Eyes: Normal Pupils: PERRL Ears: Normal External canal: Normal Tympanic membrane: Normal Sinus: Normal Nasal: Normal Mouth/Lips: Normal Mucous membranes: Normal Pharynx: Normal Neck: Normal - Respiratory Respiratory status: No respiratory distress Chest status: Nontender Breath sounds: Normal Chest palpation: Normal - Cardiovascular Rhythm: Regular Heart sounds: Normal auscultation Murmur: No - Abdominal Inspection: Normal Distension: No distension Bowel sounds: Normal Tenderness: Nontender Organomegaly: No organomegaly - Back Back: Normal, Nontender - Extremities General upper extremity: Normal inspection, Nontender, Normal color, Normal ROM , Normal temperature General lower extremity: Nontender, Normal color, Normal ROM, Normal temperature , Normal weight bearing. No: Jeancarlos's sign Foot: No evidence of FB, Other - Rash to the top of both feet. No: Tender, Abrasion, Deformity, Ecchymosis, Edema, Instability, Laceration, Metatarsal compress. pain, Nail injury, Navicular tenderness, Unable to bear weight - Neurological Neuro grossly intact: Yes Cognition: Normal Orientation: AAOx4 Derrick Coma Scale Eye Opening: Spontaneous Derrick Coma Scale Verbal: Oriented Derrick Coma Scale Motor: Obeys Commands Derrick Coma Scale Total: 15 Speech: Normal Motor strength normal: LUE, RUE, LLE, RLE Sensory: Normal - Psychological Associated symptoms: Normal affect, Normal mood - Skin Skin Temperature: Warm Skin Moisture: Dry Skin Color: Normal Skin irregularity: Rash Location of irregularity: Extremities - Tops of both feet Course - Re-evaluation Re-evalutation: 08/06/16 12:[address] Victor concerning the rash to be sure that I was treating that properly heat did observe the rash and stated that the Mycolog would be appropriate. (BRIGID EARLY) 08/06/16 20:34 I have seen and examined the patient and I agree with the nurse practitioner's assessment and plan of care. ([place]) - Vital Signs Vital signs: Temp Pulse Resp BP Pulse Ox 97.8 F 79 20 114/77 98 08/06/16 10:56 08/06/16 10:56 08/06/16 10:56 08/06/16 10:56 08/06/16 10:56 Discharge - Discharge Clinical Impression: rash to bilateral feet Condition: Stable Disposition: HOME, SELF-CARE Instructions: Family Physicians / Practices Additional Instructions: Rash appears to be both a fungal and an allergic reaction to the plastic shoes that you have been wearing. We will treat that with some Mycolog which has a antifungal and sterile a minute. Please clean your feet well 3 times a day with soap and water and dry well to apply the ointment. Be sure to keep your feet clean and dry. Wear socks in your shoes at all time and change them frequently. SOAP CLEANSING: Gently wash the wound daily using a mild soap (like Ivory, Phisoderm, Neutrogena). Use warm water, rubbing gently until all debris, ooze, and crusting have been washed from the wound. Allow to dry briefly (about 10 minutes) after cleaning. Repeat this cleansing at least three times a day for the first two days and then once or twice a day. FOLLOW-UP CARE: If you have been referred to a physician for follow-up care, call the physician s office for an appointment as you were instructed or within the next two days. If you experience worsening or a significant change in your symptoms, notify the physician immediately or return to the Emergency Department at any time for re-evaluation. Prescriptions: Nystatin/Triamcin [Mycolog-II Ointment] 1 applic TP TID #1 tube Forms: Smoking Cessation Education
== END 2016-08-06 12:40 | disposition home or self-care (01) ==
LOC: ER 10:28
DX: R21 Rash and other nonspecific skin eruption (principal); F17.210 Nicotine dependence, cigarettes, uncomplicated
CPT/HCPCS: 99282; J3490

== ENCOUNTER 2016-09-04 18:05 | Emergency (ER) | payer MEDICAID ==
[2016-09-04 18:28] VITALS: BP 138/85
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
[2016-09-04 19:08] LABS: ABSOLUTE BASOPHILS # (AUTO) 0.1 10^3/uL (0.0-0.2); ABSOLUTE EOSINOPHILS # (AUTO) 0.4 10^3/uL (0.0-0.6); ABSOLUTE LYMPHOCYTES (AUTO) 4.3 10^3/uL (0.5-4.7); ABSOLUTE MONOCYTES (AUTO) 0.8 10^3/uL (0.1-1.4); ABSOLUTE NEUT (AUTO) 10.5 10^3/uL (1.7-8.2); BASOPHILS % (AUTO) 0.4 % (0-2); EOSINOPHILS % (AUTO) 2.5 % (0-6); HEMATOCRIT 41.2 % (36.0-47.0); HEMOGLOBIN 13.4 g/dL (12.0-15.5); LYMPHOCYTES % (AUTO) 26.9 % (13-45); MEAN CORPUSCULAR HEMOGLOBIN 27.6 pg (27.0-33.4); MEAN CORPUSCULAR HGB CONC 32.6 g/dL (32.0-36.0); MEAN CORPUSCULAR VOLUME 85 fl (80-97); RED BLOOD COUNT 4.86 10^6/uL (3.72-5.28); RED CELL DISTRIBUTION WIDTH 14.4 % (11.5-14.0); SEGMENTED NEUTROPHILS % (AUTO) 65.2 % (42-78)
[2016-09-04 19:23] LABS: ALANINE AMINOTRANSFERASE 45 U/L (9-52); ALBUMIN 4.7 g/dL (3.5-5.0); ALKALINE PHOSPHATASE 85 U/L (38-126); ANION GAP 16 (5-19); ASPARTATE AMINO TRANSFERASE 26 U/L (14-36); BILIRUBIN,DIRECT 0.4 mg/dL (0.0-0.4); BILIRUBIN,TOTAL 0.9 mg/dL (0.2-1.3); BLOOD UREA NITROGEN 11 mg/dL (7-20); CALCIUM 10.6 mg/dL (8.4-10.2); CARBON DIOXIDE 22 mmol/L (22-30); CHLORIDE 106 mmol/L (98-107); CREATININE RESULT 0.88 mg/dL (0.52-1.25); GLUCOSE 133 mg/dL (75-110); POTASSIUM 3.8 mmol/L (3.6-5.0); TOTAL PROTEIN 8.2 g/dL (6.3-8.2)
[2016-09-04 19:27] LABS: ALCOHOL < 10 mg/dL (NONE DETECTED)
[2016-09-04 19:36] LABS: APPEARANCE,URINE CLOUDY; BILIRUBIN,URINE NEGATIVE (NEGATIVE); GLUCOSE, URINE NEGATIVE (NEGATIVE); KETONES,URINE TRACE mg/dL (NEGATIVE); LEUKOCYTE ESTERASE,URINE LARGE (NEGATIVE); NITRITE,URINE NEGATIVE (NEGATIVE); PROTEIN,URINE 30 mg/dL (NEGATIVE); TRICHOMONAS, URINE PRESENT /HPF; UROBILINOGEN,URINE NEGATIVE mg/dL (<2.0)
[2016-09-04 19:46] LABS: URINE BARBITURATES SCREEN NEGATIVE; URINE METHADONE SCREEN NEGATIVE; URINE OPIATES LOW NEGATIVE; URINE PHENCYCLIDINE SCREEN NEGATIVE
--- NOTE | 2016-09-04 21:16 | EKG REPORT ---
SEVERITY:- BORDERLINE ECG - SINUS RHYTHM INFERIOR Q WAVES, PROBABLY NORMAL VARIATION : Confirmed by: Katya Ya 04-Sep-2016 21:16:18
== END 2016-09-04 21:00 | disposition left against medical advice (07) ==
LOC: ER 18:05
DX: M25.532 Pain in left wrist (principal); F14.23 Cocaine dependence with withdrawal; F20.9 Schizophrenia, unspecified
CPT/HCPCS: 36415; 80053; 80307; 81001; 84703; 85025; 93005; 93010; 99281

== ENCOUNTER 2016-09-25 08:55 | Emergency (ER) | payer MEDICAID, OTHER ==
[2016-09-25] MEDS ORDERED: HYDROXYZINE PAMOATE 50 MG CAPSULE ONE ×2 (12:07→15:00)
[2016-09-25] MEDS ORDERED: OLANZAPINE INJ/PF 10 MG SDV IM ONE ×2 (15:00→16:10)
[2016-09-25] MEDS ORDERED: BENZTROPINE MESYLATE 1 MG TABLET ONE ×2 (15:00→16:11)
[2016-09-25] MEDS ORDERED: CHLORPROMAZINE HCL INJ 25 MG/1 ML AMPULE ONE ×2 (15:00→17:50)
[2016-09-25] MEDS ORDERED: CHLORPROMAZINE HCL INJ 25 MG/1 ML AMPULE IM PRN (19:59)
[2016-09-25] MEDS ORDERED: BENZTROPINE MESYLATE 1 MG TABLET PO SCH (22:00)
[2016-09-25] MEDS: FLUPHENAZINE HCL 2.5 MG TABLET PO SCH (22:55)
[2016-09-26] MEDS ORDERED: LORAZEPAM 1 MG TABLET PO ONE (03:43)
[2016-09-26] MEDS: FLUPHENAZINE HCL 2.5 MG TABLET PO SCH ×3 (06:00→17:50)
[2016-09-26 12:00] LABS: ABSOLUTE BASOPHILS # (AUTO) 0.1 10^3/uL (0.0-0.2); ABSOLUTE EOSINOPHILS # (AUTO) 0.4 10^3/uL (0.0-0.6); ABSOLUTE LYMPHOCYTES (AUTO) 3.6 10^3/uL (0.5-4.7); BASOPHILS % (AUTO) 0.5 % (0-2); EOSINOPHILS % (AUTO) 2.4 % (0-6); HEMATOCRIT 40.4 % (36.0-47.0); HEMOGLOBIN 13.4 g/dL (12.0-15.5); HGB HCT DIFFERENCE -0.2; LYMPHOCYTES % (AUTO) 23.8 % (13-45); MEAN CORPUSCULAR HEMOGLOBIN 28.3 pg (27.0-33.4); MEAN CORPUSCULAR HGB CONC 33.2 g/dL (32.0-36.0); MEAN CORPUSCULAR VOLUME 85 fl (80-97); MONOCYTES % (AUTO) 6.5 % (3-13); RED BLOOD COUNT 4.73 10^6/uL (3.72-5.28); RED CELL DISTRIBUTION WIDTH 13.8 % (11.5-14.0); SEGMENTED NEUTROPHILS % (AUTO) 66.8 % (42-78)
[2016-09-26 13:38] LABS: AMORPHOUS SEDIMENT,URINE TRACE /HPF; APPEARANCE,URINE SLIGHTLY-CLOUDY; BILIRUBIN,URINE NEGATIVE (NEGATIVE); GLUCOSE, URINE NEGATIVE (NEGATIVE); KETONES,URINE TRACE mg/dL (NEGATIVE); LEUKOCYTE ESTERASE,URINE LARGE (NEGATIVE); NITRITE,URINE NEGATIVE (NEGATIVE); PROTEIN,URINE NEGATIVE (NEGATIVE); URINE SPECIFIC GRAVITY 1.015; UROBILINOGEN,URINE NEGATIVE mg/dL (<2.0)
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
--- NOTE | 2016-09-26 17:50 | ER Document Report ---
ED Psych Disorder / Suicide - General Chief Complaint: Psych Problem Stated Complaint: rash Notes: This patient had a handwritten history and physical done by me during downtime of sli[employer]do yesterday. Assumedly, that history and physical will show up as part of the permanent medical record eventually. At this time, I am using this chart to be able to write discharge instructions for this patient today September 26. TRAVEL OUTSIDE OF THE [place] IN LAST 30 DAYS: No - Related Data Allergies/Adverse Reactions: No Known Allergies Allergy (Verified 10/02/16 07:12) Past Medical History - Social History Smoking Status: Unknown if Ever Smoked Family History: Arthritis, DM, Hyperlipidemia, Hypertension Pulmonary Medical History: Reports: Hx Asthma Psychiatric Medical History: Reports: Hx Anxiety, Hx Bipolar Disorder Past Surgical History: Reports: Hx Section - x1 - Immunizations Hx Diphtheria, Pertussis, Tetanus Vaccination: No Physical Exam - Vital signs Vitals: Pulse Resp BP Pulse Ox 81 20 125/80 95 09/26/16 03:45 09/26/16 03:45 09/26/16 03:45 09/26/16 03:45 Course - Vital Signs Vital signs: Temp Pulse Resp BP Pulse Ox 98.4 F 101 H 20 141/91 H 97 09/26/16 17:52 09/26/16 17:52 09/26/16 17:52 09/26/16 17:52 09/26/16 17:52 - Laboratory Result Diagrams: 09/25/16 10:50 09/25/16 10:50 Laboratory results interpreted by me: 09/25/16 09/25/16 09/25/16 10:50 10:50 10:50 WBC 15.0 H Absolute Neutrophils 10.0 H Calcium 10.3 H ALT 55 H Total Protein 8.5 H Urine Ketones TRACE H Ur Leukocyte Esterase LARGE H Salicylates < 1.0 L Acetaminophen < 10 L Discharge - Discharge Clinical Impression: Substance abuse, Bipolar 1 disorder Condition: Stable Disposition: HOME, SELF-CARE Additional Instructions: Bipolar Disorder Bipolar disorder is also called manic-depressive disorder. Depression alternates with brain hyperactivity called dash. Each phase lasts from several days to a few weeks. We don't know exactly what causes bipolar disorder , but it's treatable. During the "manic phase," you may feel elated and energetic. You may have racing thoughts, rapid speech, increased activity, and grandiose ideas. During this time, you may not realize how poor your judgement is. Inappropriate spending, drug abuse, excessive alcohol use, marriage problems, and irresponsible sexual behavior are common during the manic phase. During the "depressive phase," you might feel depressed, guilty, worthless , fatigued, and unable to concentrate. You might have thoughts of suicide. Good treatments are available for bipolar disorder. [place] is a classic drug for bipolar disorder, and is still often useful. If the manic phase is very mild, an antidepressant alone can be prescribed. If the manic phase is very severe, an antipsychotic medicine (such as Haldol) may be needed. The treatment must be matched to your symptoms, so it's important to work closely with your psychiatric care provider. Contact your physician, the hospital emergency center, crisis line, or your counsellor if you are losing control or having self-destructive thoughts. COCAINE ABUSE: Cocaine causes many dangerous medical problems. Problems can occur even with "usual" amounts. Cocaine affects judgement, creating a sense of invulnerability. Cocaine users often make bad decisions that seem "great" at the time. Most cocaine users eventually will be hurt by bad job performance, damaged personal relations, crime, and unsafe sexual practices. Toxic effects of cocaine can include seizures, hallucinations, delusions, high blood pressure, heart damage, or sudden . There's always the risk of a "bad batch." But heart attacks, brain hemorrhages, or cardiac arrest can occur unpredictably even with "normal" use. Injection of cocaine is risky for abscesses, endocarditis (heart infection) , pneumonia, and AIDS. Withdrawal from cocaine often causes anxiety and drug cravings. Some users become paranoid and psychotic. Many treatment programs are available, but you must make the decision to quit. Medication can be prescribed to control the symptoms of cocaine toxicity (beta blockers or benzodiazepines). Withdrawal symptoms may require tranquilizers. AMPHETAMINE / METHAMPHETAMINE ABUSE: Amphetamines are addicting stimulants. Amphetamines overstimulate the nervous system and give a false feeling of power and mastery. These drugs may be obtained as prescription pills for weight loss, narcolepsy, or attention- deficit disorder. More often they're bought as an illegal street drug, methamphetamine (crank, crystal, speed). Using amphetamines repeatedly can lead to serious medical problems including malnutrition, severe depression, and paranoia. It can take increasing amounts to feel good. Eventually, there will be a "burn out." When you go off amphetamines there is a period of depression that may last for weeks or even months. High doses of amphetamines can cause seizures, confusion, hallucinations, delusions, high blood pressure, muscle damage, heart damage, or sudden . Many times these deadly complications occur even with "normal" doses. Injection of amphetamines is risky for developing abscesses, endocarditis ( heart infection), pneumonia, and AIDS. Withdrawal from amphetamines often causes anxiety, depression, and drug cravings. Some users become paranoid and psychotic. There may be cramps, nausea , and vomiting. Many treatment programs are available, but you must make the decision to quit. Medication can be prescribed to control the symptoms of amphetamine toxicity (beta blockers or benzodiazepines). Withdrawal symptoms may require tranquilizers. FOLLOW-UP CARE: If you have been referred to a physician for follow-up care, call the physician s office for an appointment as you were instructed or within the next two days. If you experience worsening or a significant change in your symptoms, notify the physician immediately or return to the Emergency Department at any time for re-evaluation. Follow-up with A act team tomorrow. Referrals: NATY ADAMES MD [Primary Care Provider] - Follow up as needed
[2016-09-26 17:52] VITALS: BP 141/91
--- NOTE | 2016-09-26 19:05 | ER Document Report ---
Doctor's Note Notes: 09/26/16 18:56 Rounds: Chart reviewed and patient evaluated. Vital signs have all been normal. Results showed a white count of 15,000, but patient has no signs or symptoms of any infection anywhere. Patient is medically stable for transfer or discharge. Jolene Veras MD
[2016-09-27 15:21] LABS: URINE BARBITURATES SCREEN NEGATIVE; URINE METHADONE SCREEN NEGATIVE; URINE OPIATES LOW NEGATIVE; URINE PHENCYCLIDINE SCREEN NEGATIVE
[2016-09-27 15:22] LABS: ALANINE AMINOTRANSFERASE 55 U/L (9-52); ALBUMIN 4.8 g/dL (3.5-5.0); ALKALINE PHOSPHATASE 91 U/L (38-126); ANION GAP 14 (5-19); ASPARTATE AMINO TRANSFERASE 35 U/L (14-36); BLOOD UREA NITROGEN 13 mg/dL (7-20); CALCIUM 10.3 mg/dL (8.4-10.2); CARBON DIOXIDE 25 mmol/L (22-30); CHLORIDE 101 mmol/L (98-107); CREATININE RESULT 0.86 mg/dL (0.52-1.25); GLUCOSE 85 mg/dL (75-110); POTASSIUM 4.6 mmol/L (3.6-5.0); SODIUM 140.3 mmol/L (137-145)
[2016-09-27 15:23] LABS: ALCOHOL < 10 mg/dL (NONE DETECTED); BILIRUBIN,DIRECT 0.4 mg/dL (0.0-0.4); BILIRUBIN,TOTAL 0.7 mg/dL (0.2-1.3); TOTAL PROTEIN 8.5 g/dL (6.3-8.2)
== END 2016-09-26 17:59 | disposition home or self-care (01) ==
LOC: ER 08:55
DX: F23 Brief psychotic disorder (principal); F41.9 Anxiety disorder, unspecified; F25.0 Schizoaffective disorder, bipolar type; F31.9 Bipolar disorder, unspecified
CPT/HCPCS: 99285; 36415; 80307 ×4; 84703; 85025; 80053; 81001; J3490 ×4; J3230

== ENCOUNTER 2016-10-02 06:54 | Emergency (ER) | payer MEDICAID ==
[2016-10-02 07:23] VITALS: BP 140/80
--- NOTE | 2016-10-02 08:14 | ER Document Report ---
ED General - General Chief Complaint: Vaginal Bleeding Stated Complaint: VAGINAL BLEEDING Time Seen by Provider: 10/02/16 07:24 Notes: Patient is a 30-year-old female who presents emergency department complaining of vaginal bleeding, yellow vaginal discharge, pyuria, urinary frequency. Patient is a poor historian given her underlying schizophrenia and bipolar since she is off her medication. She states that she has had pyuria and vaginal discharge for about 2 months, vaginal bleeding she states started yesterday. Patient admits to mild pelvic discomfort but she states that is due to her being . Mild nausea but denies any vomiting, abdominal pain, diarrhea or constipation. Patient states she is not sure how far along she is but can feel the baby moving. Patient states that her last menstrual period was 2 months ago. She states that she is sexually active and has had many sexual partners over the past couple months and has not been using protection. Primary care physician Roshan, post [facility] for mental health care Past medical history significant for bipolar, schizoaffective disorder Past surgical history denies Social history admits to 12 pack years, denies any alcohol use. Admits to social cocaine use last used a week ago and meth she used yesterday. TRAVEL OUTSIDE OF THE [place] IN LAST 30 DAYS: No - Related Data Allergies/Adverse Reactions: No Known Allergies Allergy (Verified 10/02/16 07:12) Past Medical History - Social History Smoking Status: Current Every Day Smoker Family History: Arthritis, DM, Hyperlipidemia, Hypertension Patient has suicidal ideation: No Patient has homicidal ideation: No Pulmonary Medical History: Reports: Hx Asthma Renal/ Medical History: Denies: Hx Peritoneal Dialysis Psychiatric Medical History: Reports: Hx Anxiety, Hx Bipolar Disorder Past Surgical History: Reports: Hx Section - x1 - Immunizations Hx Diphtheria, Pertussis, Tetanus Vaccination: No Review of Systems - Review of Systems Constitutional: No symptoms reported Cardiovascular: No symptoms reported Respiratory: No symptoms reported Gastrointestinal: See HPI Genitourinary: See HPI Female Genitourinary: See HPI Musculoskeletal: No symptoms reported Skin: No symptoms reported Neurological/Psychological: Anxiety, Hallucinations. denies: Homicidal ideation , Suicidal ideation Physical Exam - Vital signs Vitals: Temp Pulse Resp BP Pulse Ox 97.9 F 84 18 140/80 H 97 10/02/16 07:12 10/02/16 07:12 10/02/16 07:12 10/02/16 07:12 10/02/16 07:12 - Notes Notes: PHYSICAL EXAM GENERAL: Alert, interacts well. HEAD: Normocephalic, atraumatic. EYES: Pupils equal, round, and reactive to light. Extraocular movements intact. ENT: Oral mucosa moist, tongue midline. NECK: Full range of motion. Supple. Trachea midline. LUNGS: Clear to auscultation bilaterally, no wheezes, rales, or rhonchi. No respiratory distress. HEART: Regular rate and rhythm. No murmurs, gallops, or rubs. ABDOMEN: Soft, nondistended, nontender. No guarding, rebound, or rigidity.. Bowel sounds present in all 4 quadrants. FEMALE : Normal external exam. No evidence of lesions, lacerations, bruising or vesicles. Speculum exam normal cervix closed. Evidence of vaginal discharge with odor. No evidence of lesions. Minimal blood within the vaginal vault. Bimanual exam normal no cervical motion tenderness. No adnexal mass or adnexal tenderness. EXTREMITIES: Moves all 4 extremities spontaneously. No edema, radial and dorsalis pedis pulses 2/4 bilaterally. No cyanosis. NEUROLOGICAL: Alert and oriented x4. Normal speech. SKIN: Warm, dry, normal turgor. No rashes or lesions noted. - Psychological Associated symptoms: Normal affect, Circumferential speech, Flight of ideas, Paranoid, Temple preoccupation, Visual hallucinations Course - Re-evaluation Re-evalutation: 10/02/16 09:41 Patient is a 30-year-old female who is hemodynamically stable, no acute distress and afebrile. Patient is at her baseline mental status consistent with the fact that she is not taking her medications. The mental health note for their consult and evaluation. Denies any suicidal or homicidal ideations. Otherwise she has been very pleasant and cooperative today. Pelvic swab did reveal positive trichomonas, urinalysis revealed negative beta-hCG, positive leuk esterase with WBC and bacteria consistent with urinary tract infection. Gonorrhea detected. Patient treated and prescribed cipro. stable for D/c home - Vital Signs Vital signs: Temp Pulse Resp BP Pulse Ox 97.9 F 84 18 140/80 H 97 10/02/16 07:23 10/02/16 07:23 10/02/16 07:40 10/02/16 07:23 10/02/16 07:23 - Laboratory Laboratory results interpreted by me: 10/02/16 10/02/16 07:45 07:45 Urine Blood SMALL H Ur Leukocyte Esterase MODERATE H N.gonorrhoeae DNA (PCR) DETECTED H Discharge - Discharge Clinical Impression: Gonorrhea, Trichomonal infection, UTI (urinary tract infection) Condition: Good Disposition: HOME, SELF-CARE Additional Instructions: Gonorrhea You have been diagnosed with gonorrhea. In men, this germ infects the urethra (and sometimes the throat). Men usually have drainage from the penis and pain with urination. In women, the germ infects the vagina and fallopian tubes. There may be discharge and pelvic pain. Some women have no symptoms at all. The infection can do permanent damage to the tubes and ovaries. It should be taken very seriously. Treatment is antibiotics. It's important that you receive all recommended medication. Use condoms to prevent spread of the infection. Because this infection is spread sexually, your sexual partner must be checked before resuming sexual relations. If a culture shows gonorrhea germs, it must be reported to the health department. Call the doctor or return at once if you develop increasing fever, rash, joint swelling, severe pelvic pain, vaginal bleeding (other than your period), or problems with your bladder or bowels. Trichomonas Infection Trichomoniasis is infection of the vagina or male genital tract with Trichomonas vaginalis. It can be asymptomatic or cause urethritis, vaginitis, or occasionally cystitis, epididymitis, or prostatitis. Diagnosis is by microscopic examination of vaginal or prostatic secretions or by urethral culture. Patients and sex partners are treated with metronidazole. T. vaginalis is a flagellated, sexually transmitted protozoan that more often infects women (about 20% of women of reproductive age) than men. Infection may be asymptomatic in either sex, but asymptomatic is the rule for men. In men, protozoa may persist for long periods in the tract without causing symptoms; thus, protozoa may be transmitted unwittingly to sex partners. Trichomoniasis may account for up to 5% of nongonococcal, nonchlamydial urethritis in men in some areas. Co-infection with gonorrhea and other sexually transmitted diseases (STDs) is common. In women, symptoms range from none to copious, yellow-green, frothy vaginal discharge with soreness of the vulva and perineum, dyspareunia, and dysuria. Asymptomatic infection may become symptomatic at any time as the vulva and perineum become inflamed and edema develops in the labia. The vaginal dueñas and surface of the cervix may have punctate, red "strawberry" spots. Urethritis and possibly cystitis may also occur. Men are usually asymptomatic; however, sometimes urethritis results in a discharge that may be transient, frothy, or purulent or that causes dysuria and frequency, usually early in the morning. Often, urethritis is mild and causes only minimal urethral irritation and occasional moisture at the urethral meatus , under the foreskin, or both. Epididymitis and prostatitis are rare complications. Trichomoniasis is suspected in women with vaginitis, in men with urethritis , and in their sex partners. Suspicion is high if symptoms persist after patients have been evaluated and treated for other infections such as gonorrhea and chlamydial, mycoplasmal, and ureaplasmal infections. In women, diagnosis is based on clinical criteria and in-office testing. The saline wet mount is examined microscopically as soon as possible to detect trichomonads.In men, microscopy of urine is insensitive, although occasionally organisms are visible in a first-voided morning specimen or a centrifuged specimen. Cultures of urine and urethral swabs are more sensitive. As with diagnosis of any STD, patients with trichomoniasis should be tested to exclude other common STDs such as gonorrhea and chlamydial infection. Metronidazole or tinidazole 2 g po in a single dose cures up to 95% of women if sex partners are treated simultaneously. Effectiveness of single-dose regimens in men is not as clear, so treatment is typically with metronidazole or tinidazole 500 mg bid for 5 to 7 days. Sex partners should be screened and treated for trichomoniasis and other STDs. If poor adherence to follow-up is likely, treatment can be initiated in sex partners of patients with documented trichomoniasis without confirming the diagnosis in the partner. URINARY TRACT INFECTION: Your evaluation indicates that you have a urinary tract infection. This is due to germs growing in the bladder. This is a common problem. This infection usually responds quickly to antibiotics. Your antibiotic should be taken exactly as prescribed. Drink plenty of fluids -- three to four quarts a day. Occasionally, a bladder anesthetic will be prescribed to help stop the feeling of urgency until the antibiotic has a chance to clear the infection. This may cause your urine to be dark orange. Certain urine infections require a culture. If the doctor obtained a culture, the results will be back in two days. You should call to see if a change in treatment is needed. A repeat urinalysis after you finish treatment is often recommended. The physician will let you know if further testing is required. Call the doctor if you develop fever, chills, flank pain, inability to urinate, or blood in the urine. ANTIBIOTIC THERAPY: You have been given an antibiotic prescription. It's important that you take all the medication, unless instructed otherwise by your physician. Failure to complete the entire course can result in relapse of your condition. Common side effects of antibiotics include nausea, intestinal cramping, or diarrhea. Women may develop vaginal yeast infections, and babies can get yeast (thrush) in the mouth following the use of antibiotics. Contact your physician if you develop significant side effects from this medication. Allergy to this antibiotic can result in hives, wheezing, faintness, or itching. If symptoms of allergy occur, stop the medication and call the doctor. CIPROFLOXACIN: You have been given an antibacterial agent, ciprofloxacin (Cipro). This medicine is not related to the penicillins, sulfas, cephalosporins, or tetracyclines. It is often given to patients who are allergic to these drugs. It has been chosen for you either because other drugs are not appropriate, or because of the nature of your problem. Cipro should not be taken with antacids, as these can decrease its effectiveness. It can be taken without regard to meals. CIPRO SHOULD NOT BE TAKEN BY CHILDREN, NURSING WOMEN, OR WOMEN. Although Cipro is usually well-tolerated, common side effects can include nausea and diarrhea. Contact your doctor if you experience any unusual symptoms while on this medication, such as joint pain or swelling, shortness of breath, wheezing, faintness, or hives. FOLLOW-UP CARE: If you have been referred to a physician for follow-up care, call the physician s office for an appointment as you were instructed or within the next two days. If you experience worsening or a significant change in your symptoms, notify the physician immediately or return to the Emergency Department at any time for re-evaluation. Prescriptions: Ciprofloxacin HCl [Cipro 250 mg Tablet] 1 tab PO BID #5 tab Forms: Elevated Blood Pressure Referrals: [facility] [Provider Group] - Follow up tomorrow
[2016-10-02 08:29] LABS: APPEARANCE,URINE CLEAR; BILIRUBIN,URINE NEGATIVE (NEGATIVE); GLUCOSE, URINE NEGATIVE (NEGATIVE); KETONES,URINE NEGATIVE (NEGATIVE); LEUKOCYTE ESTERASE,URINE MODERATE (NEGATIVE); NITRITE,URINE NEGATIVE (NEGATIVE); PROTEIN,URINE NEGATIVE (NEGATIVE); URINE SPECIFIC GRAVITY 1.004; UROBILINOGEN,URINE NEGATIVE mg/dL (<2.0)
[2016-10-02 08:50] LABS: URINE BARBITURATES SCREEN NEGATIVE; URINE METHADONE SCREEN NEGATIVE; URINE OPIATES LOW NEGATIVE; URINE PHENCYCLIDINE SCREEN NEGATIVE
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
[2016-10-02 10:14] LABS: CHLAM PCR NOT DETECTED (NOT DETECT)
[2016-10-02] MEDS ORDERED: CIPROFLOXACIN HCL 500 MG TABLET PO ONE (10:39)
[2016-10-02] MEDS ORDERED: METRONIDAZOLE 500 MG TABLET PO ONE (10:40)
[2016-10-02] MEDS ORDERED: LIDOCAINE 1% INJ-PF (10 MG/ML) 30 ML SDV INJ ONE (10:41)
[2016-10-02] MEDS ORDERED: AZITHROMYCIN 1 GM SUSP PACKET PO ONE (10:41)
[2016-10-02] MEDS ORDERED: CEFTRIAXONE INJ 250 MG VIAL IM ONE (10:41)
[2016-10-02] MEDS ORDERED: ONDANSETRON HCL 8 MG TABLET PO ONE (10:42)
== END 2016-10-02 11:42 | disposition home or self-care (01) ==
LOC: ER 06:54
DX: A54.9 Gonococcal infection, unspecified (principal); A59.9 Trichomoniasis, unspecified; N39.0 Urinary tract infection, site not specified; N93.9 Abnormal uterine and vaginal bleeding, unspecified; R35.0 Frequency of micturition; F20.9 Schizophrenia, unspecified; F31.9 Bipolar disorder, unspecified; R11.0 Nausea; F17.200 Nicotine dependence, unspecified, uncomplicated
CPT/HCPCS: 99284; 96372; 87210; 81025; 81001; 80307; 87491; 87591; J3490 ×3; Q0144; S0119; J0696

== ENCOUNTER 2016-10-08 06:15 | Emergency (ER) | payer MEDICAID, OTHER ==
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
[2016-10-08 08:24] LABS: ABSOLUTE EOSINOPHILS # (AUTO) 0.2 10^3/uL (0.0-0.6); ABSOLUTE LYMPHOCYTES (AUTO) 2.6 10^3/uL (0.5-4.7); ABSOLUTE MONOCYTES (AUTO) 0.8 10^3/uL (0.1-1.4); ABSOLUTE NEUT (AUTO) 9.4 10^3/uL (1.7-8.2); BASOPHILS % (AUTO) 0.3 % (0-2); EOSINOPHILS % (AUTO) 1.9 % (0-6); HEMATOCRIT 40.7 % (36.0-47.0); HEMOGLOBIN 13.3 g/dL (12.0-15.5); HGB HCT DIFFERENCE -0.8; LYMPHOCYTES % (AUTO) 19.7 % (13-45); MEAN CORPUSCULAR HEMOGLOBIN 28.7 pg (27.0-33.4); MEAN CORPUSCULAR HGB CONC 32.8 g/dL (32.0-36.0); MEAN CORPUSCULAR VOLUME 88 fl (80-97); MONOCYTES % (AUTO) 6.2 % (3-13); RED BLOOD COUNT 4.65 10^6/uL (3.72-5.28); RED CELL DISTRIBUTION WIDTH 13.7 % (11.5-14.0); SEGMENTED NEUTROPHILS % (AUTO) 71.9 % (42-78)
[2016-10-08 08:39] LABS: APPEARANCE,URINE CLEAR; BILIRUBIN,URINE NEGATIVE (NEGATIVE); GLUCOSE, URINE NEGATIVE (NEGATIVE); KETONES,URINE NEGATIVE (NEGATIVE); LEUKOCYTE ESTERASE,URINE NEGATIVE (NEGATIVE); NITRITE,URINE NEGATIVE (NEGATIVE); PROTEIN,URINE NEGATIVE (NEGATIVE); URINE SPECIFIC GRAVITY 1.006; UROBILINOGEN,URINE NEGATIVE mg/dL (<2.0)
[2016-10-08 08:47] LABS: URINE BARBITURATES SCREEN NEGATIVE; URINE METHADONE SCREEN NEGATIVE; URINE OPIATES LOW NEGATIVE; URINE PHENCYCLIDINE SCREEN NEGATIVE
[2016-10-08 08:52] LABS: ALANINE AMINOTRANSFERASE 47 U/L (9-52); ALBUMIN 4.2 g/dL (3.5-5.0); ALCOHOL < 10 mg/dL (NONE DETECTED); ALKALINE PHOSPHATASE 84 U/L (38-126); ANION GAP 13 (5-19); ASPARTATE AMINO TRANSFERASE 28 U/L (14-36); BILIRUBIN,DIRECT 0.3 mg/dL (0.0-0.4); BILIRUBIN,TOTAL 0.4 mg/dL (0.2-1.3); BLOOD UREA NITROGEN 12 mg/dL (7-20); CALCIUM 9.6 mg/dL (8.4-10.2); CARBON DIOXIDE 25 mmol/L (22-30); CHLORIDE 104 mmol/L (98-107); CREATININE RESULT 0.88 mg/dL (0.52-1.25); GLUCOSE 89 mg/dL (75-110); LIPASE 141.2 U/L (23-300); POTASSIUM 4.1 mmol/L (3.6-5.0); SODIUM 142.1 mmol/L (137-145); TOTAL PROTEIN 7.5 g/dL (6.3-8.2)
--- NOTE | 2016-10-08 08:54 | RADIOLOGY REPORT (SQ) ---
EXAM DESCRIPTION: FOOT RIGHT COMPLETE COMPLETED DATE/TIME: 10/08/2016 8:33 am REASON FOR STUDY: pain, swelling, right metatarsal COMPARISON: 11/20/2010. NUMBER OF VIEWS: Three views. TECHNIQUE: AP, lateral and oblique without weight bearing radiographic images acquired of the right foot. LIMITATIONS: None. FINDINGS: MINERALIZATION: Normal. BONES: No acute fracture or dislocation. No worrisome bone lesions. No significant osteophytes. JOINTS: No erosions. No jazmyn-articular osteopenia. No chondrocalcinosis. SOFT TISSUES: No swelling. No calcifications. OTHER: No other significant finding. IMPRESSION: NEGATIVE STUDY OF THE RIGHT FOOT. NO ACUTE POST-TRAUMATIC CHANGES. NO EXPLANATION FOR PA IN. TECHNICAL DOCUMENTATION: JOB ID: [id number] [employer]- All Rights Reserved
--- NOTE | 2016-10-08 10:04 | EKG REPORT ---
SEVERITY:- NORMAL ECG - SINUS RHYTHM : Confirmed by: Katya Ya 08-Oct-2016 10:03:17
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
[2016-10-08 12:27] VITALS: BP 129/86
== END 2016-10-08 12:27 | disposition home or self-care (01) ==
LOC: ER 06:15
DX: F22 Delusional disorders (principal); F20.9 Schizophrenia, unspecified; F17.210 Nicotine dependence, cigarettes, uncomplicated
CPT/HCPCS: 36415; 80053; 80307; 81001; 81025; 83690; 84703; 85025; 93005; 93010; 99284

== ENCOUNTER 2016-10-11 06:24 | Emergency (ER) | payer MEDICAID ==
[2016-10-11 06:35] VITALS: BP 134/81
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
[2016-10-11] MEDS ORDERED: IBUPROFEN 800 MG TABLET PO ONE (09:01)
== END 2016-10-11 09:05 | disposition home or self-care (01) ==
LOC: ER 06:24
DX: M54.5 Low back pain (principal); R03.0 Elevated blood-pressure reading, without diagnosis of hypertension; W21.19XA Struck by other bat, racquet or club, initial encounter; F17.210 Nicotine dependence, cigarettes, uncomplicated
CPT/HCPCS: 72110; 99281

== ENCOUNTER 2016-10-30 04:35 | Emergency (ER) | payer MEDICAID, OTHER ==
[2016-10-30 04:49] VITALS: BP 128/87
[2016-10-30 06:00] LABS: APPEARANCE,URINE SLIGHTLY-CLOUDY; BILIRUBIN,URINE NEGATIVE (NEGATIVE); CALCIUM OXALATE CRYSTALS,URINE FEW /HPF; GLUCOSE, URINE NEGATIVE (NEGATIVE); KETONES,URINE NEGATIVE (NEGATIVE); LEUKOCYTE ESTERASE,URINE NEGATIVE (NEGATIVE); NITRITE,URINE NEGATIVE (NEGATIVE); PROTEIN,URINE NEGATIVE (NEGATIVE); URINE SPECIFIC GRAVITY 1.032; UROBILINOGEN,URINE NEGATIVE mg/dL (<2.0)
--- NOTE | 2016-10-30 07:55 | ER Document Report ---
ED General - General Chief Complaint: Vaginal Pain Stated Complaint: WANTS TEST Time Seen by Provider: 10/30/16 06:17 TRAVEL OUTSIDE OF THE [place] IN LAST 30 DAYS: No - Related Data Allergies/Adverse Reactions: No Known Allergies Allergy (Verified 10/02/16 07:12) Past Medical History - Social History Smoking Status: Unknown if Ever Smoked Family History: Arthritis, DM, Hyperlipidemia, Hypertension Patient has suicidal ideation: No Patient has homicidal ideation: No Pulmonary Medical History: Reports: Hx Asthma Renal/ Medical History: Denies: Hx Peritoneal Dialysis Psychiatric Medical History: Reports: Hx Anxiety, Hx Bipolar Disorder, Hx Schizophrenia Past Surgical History: Reports: Hx Section - x1 - Immunizations Hx Diphtheria, Pertussis, Tetanus Vaccination: No Physical Exam - Vital signs Vitals: Temp Pulse Resp BP Pulse Ox 98.0 F 88 18 128/87 H 96 10/30/16 04:40 10/30/16 04:40 10/30/16 04:40 10/30/16 04:40 10/30/16 04:40 Course - Re-evaluation Re-evalutation: 10/30/16 07:45 Patient left prior to my evaluation. No physical exam was performed. I did review the patient's laboratory findings which showed no signs of no critical findings on urinalysis. - Vital Signs Vital signs: Temp Pulse Resp BP Pulse Ox 98.0 F 88 18 128/87 H 96 10/30/16 04:40 10/30/16 04:40 10/30/16 04:40 10/30/16 04:40 10/30/16 04:40 Discharge - Discharge Disposition: [facility]
== END 2016-10-30 06:30 | disposition left against medical advice (07) ==
LOC: ER 04:35
DX: Z53.9 Procedure and treatment not carried out, unspecified reason (principal); R10.2 Pelvic and perineal pain
CPT/HCPCS: 81001; 81025; 99281

== ENCOUNTER 2016-11-14 19:41 | Emergency (ER) | payer OTHER ==
[2016-11-14 20:28] VITALS: BP 136/81
== END 2016-11-14 21:10 | disposition left against medical advice (07) ==
LOC: ER 19:41
DX: Z53.9 Procedure and treatment not carried out, unspecified reason (principal)

== ENCOUNTER 2016-11-16 15:56 | Emergency (ER) | payer MEDICAID, OTHER ==
[2016-11-16 16:22] VITALS: BP 124/88
[2016-11-16] MEDS ORDERED: ASPIRIN 81 MG TABLET, CHEWABLE PO ONE (16:54)
--- NOTE | 2016-11-16 16:58 | ER Document Report ---
ED Medical Screen (RME) - General Chief Complaint: STD Exposure Stated Complaint: SHORTNESS OF BREATH Time Seen by Provider: 11/16/16 16:42 Mode of Arrival: Ambulatory Information source: Patient Notes: Patient presents complaining of shortness of breath since smoking crack cocaine 2 days ago. Patient does complain of chest pain, back pain as well as lower pelvic abdominal pain and vaginal discharge. Patient states she has had vaginal discharge for the past 3 days. Patient does complain of dysuria as well. hx: Anxiety, ADHD TRAVEL OUTSIDE OF THE [place] IN LAST 30 DAYS: No - Related Data Allergies/Adverse Reactions: No Known Allergies Allergy (Verified 11/16/16 16:19) Past Medical History Pulmonary Medical History: Reports: Hx Asthma Renal/ Medical History: Denies: Hx Peritoneal Dialysis Psychiatric Medical History: Reports: Hx Anxiety, Hx Bipolar Disorder, Hx Schizophrenia Past Surgical History: Reports: Hx Section - x1 - Immunizations Hx Diphtheria, Pertussis, Tetanus Vaccination: No Physical Exam - Vital signs Vitals: Temp Pulse Resp BP Pulse Ox 98.4 F 64 18 124/88 H 98 11/16/16 16:19 11/16/16 16:19 11/16/16 16:19 11/16/16 16:19 11/16/16 16:19 - Respiratory Respiratory status: No respiratory distress Chest status: Pain with cough Breath sounds: Normal - Cardiovascular Rhythm: Regular Heart sounds: S1 appreciated, S2 appreciated Murmur: No Course - Re-evaluation Re-evalutation: 11/16/16 16:[address] tran regarding pt presentation and complaint, agrees with planned workup - Vital Signs Vital signs: Temp Pulse Resp BP Pulse Ox 98.4 F 64 18 124/88 H 98 11/16/16 16:19 11/16/16 16:19 11/16/16 16:19 11/16/16 16:19 11/16/16 16:19
[2016-11-16] MEDS ORDERED: LIDOCAINE 1% INJ-PF (10 MG/ML) 30 ML SDV INFIL ONE (17:11)
[2016-11-16] MEDS ORDERED: AZITHROMYCIN 1 GM SUSP PACKET PO ONE (17:11)
[2016-11-16] MEDS ORDERED: CEFTRIAXONE INJ 250 MG VIAL IM ONE (17:11)
[2016-11-16] MEDS ORDERED: METRONIDAZOLE 500 MG TABLET PO ONE (17:13)
--- NOTE | 2016-11-16 17:17 | ER Document Report ---
ED General - General Chief Complaint: STD Exposure Stated Complaint: SHORTNESS OF BREATH Time Seen by Provider: 11/16/16 16:42 Mode of Arrival: Ambulatory Notes: -year-old female history of multiple sexually transmitted diseases and drug use presents for STD check. Her chief complaint is actually "I think I have an STD. " This is been going on for 2 days, consisting of foul-smelling white vaginal discharge. No pain. Positive dysuria. Associated with some shortness of breath and smoking crack cocaine 2 days ago. She does not have abdominal pain or chest pain or fever. She is sexually active without condoms. TRAVEL OUTSIDE OF THE [place] IN LAST 30 DAYS: No - Related Data Allergies/Adverse Reactions: No Known Allergies Allergy (Verified 11/16/16 16:19) Past Medical History - General Information source: Patient - Social History Smoking Status: Current Some Day Smoker Family History: Arthritis, DM, Hyperlipidemia, Hypertension Patient has suicidal ideation: No Patient has homicidal ideation: No Pulmonary Medical History: Reports: Hx Asthma Renal/ Medical History: Denies: Hx Peritoneal Dialysis Psychiatric Medical History: Reports: Hx Anxiety, Hx Bipolar Disorder, Hx Schizophrenia Past Surgical History: Reports: Hx Section - x1 - Immunizations Hx Diphtheria, Pertussis, Tetanus Vaccination: No Review of Systems - Review of Systems Notes: REVIEW OF SYSTEMS GEN: Denies fever, chills, weight loss ENT: Denies sore throat, nasal discharge, ear pain EYES: Denies blurry vision, eye pain, discharge CV: Denies chest pain, palpitations, edema RESP: Denies cough, positive shortness of breath, no wheezing GI: Denies abdominal pain, nausea, vomiting, diarrhea MSK: Denies joint pain/swelling, edema, SKIN: Denies rash, skin lesions LYMPH: Denies swollen glands/lymph nodes NEURO: Denies headache, focal weakness or numbness, dizziness PSYCH: Denies depression, suicidal or homicidal ideation PHYSICAL EXAMINATION General: No acute distress, well-nourished Head: Atraumatic, normocephalic ENT: Mouth normal, oropharynx moist, no exudates or tonsillar enlargement Eyes: Conjunctiva normal, pupils equal, lids normal Neck: No JVD, supple, no guarding CVS: Normal rate, regular rhythm, no murmurs Resp: No resp distress, equal and normal breath sounds bilaterally GI: Nondistended, soft, no tenderness to palpation, no rebound or guarding Ext: No deformities, no edema, normal range of motion in upper and lower ext Back: No CVA or midline TTP Skin: No rash, warm Lymphatic: No lymphadeopathy noted Neuro: Awake, alert. Face symmetric. GCS 15. Psychiatric: Bizarre affect Physical Exam - Vital signs Vitals: Temp Pulse Resp BP Pulse Ox 98.4 F 64 18 124/88 H 98 11/16/16 16:19 11/16/16 16:19 11/16/16 16:19 11/16/16 16:19 11/16/16 16:19 Course - Re-evaluation Re-evalutation: 11/16/16 17:15 Well-appearing 31-year-old female with a history of crack cocaine use presenting with sexually transmitted disease symptoms without fever or abdominal tenderness concerning for BV versus trichomoniasis versus cervicitis. I will prophylactically treat her for all STDs with ceftriaxone and azithromycin and Flagyl, discharged with Flagyl, run GC chlamydia testing here and do an EKG. Her pulmonary exam and lungs are normal, normal saturation, without chest pain I do not think this is cocaine chest pain or acute coronary syndrome. EKG is interpreted and normal. Will discharge home with cessation instructions and logical as above. 11/16/16 17:40 EKG interpreted and is normal. Given antibiotics and prescription for pneumatics. No indication for further workup at this time given her clinical picture. Counseled on safe sex. Counseled on drug cessation. Insert my discharge I have discussed with the patient there likely diagnosis, aftercare plan, follow-up plans and my usual and customary return precautions. They verbalized understanding of this. - Vital Signs Vital signs: Temp Pulse Resp BP Pulse Ox 98.4 F 64 18 124/88 H 98 11/16/16 16:19 11/16/16 16:19 11/16/16 16:19 11/16/16 16:19 11/16/16 16:19 - Laboratory Laboratory results interpreted by me: 11/16/16 16:55 Urine Blood SMALL H - EKG Interpretation by Me EKG shows normal: Sinus rhythm Rate: Normal - No ST or T-wave changes Discharge - Discharge Condition: Good Disposition: HOME, SELF-CARE Instructions: Trichomonas Infection ([facility]) Additional Instructions: Please stop using cocaine. Prescriptions: Doxycycline Hyclate 100 mg PO BID #20 capsule Metronidazole [Flagyl 500 mg Tablet] 500 mg PO Q6H #40 tablet
[2016-11-16 17:38] LABS: APPEARANCE,URINE CLEAR; BILIRUBIN,URINE NEGATIVE (NEGATIVE); GLUCOSE, URINE NEGATIVE (NEGATIVE); KETONES,URINE NEGATIVE (NEGATIVE); LEUKOCYTE ESTERASE,URINE NEGATIVE (NEGATIVE); NITRITE,URINE NEGATIVE (NEGATIVE); PROTEIN,URINE NEGATIVE (NEGATIVE); URINE SPECIFIC GRAVITY 1.009; UROBILINOGEN,URINE NEGATIVE mg/dL (<2.0)
[2016-11-16 17:50] LABS: URINE BARBITURATES SCREEN NEGATIVE; URINE METHADONE SCREEN NEGATIVE; URINE OPIATES LOW NEGATIVE; URINE PHENCYCLIDINE SCREEN NEGATIVE
[2016-11-16 19:04] LABS: CHLAM PCR NOT DETECTED (NOT DETECT)
--- NOTE | 2016-11-17 08:05 | EKG REPORT ---
SEVERITY:- NORMAL ECG - SINUS RHYTHM : Confirmed by: Joe Johnson MD 17-Nov-2016 08:04:33
== END 2016-11-16 18:17 | disposition home or self-care (01) ==
LOC: ER 15:56
DX: N89.8 Other specified noninflammatory disorders of vagina (principal); Z20.2 Contact with and (suspected) exposure to infections with a predominantly sexual mode of transmission; R30.0 Dysuria; J45.909 Unspecified asthma, uncomplicated; R06.02 Shortness of breath; F14.90 Cocaine use, unspecified, uncomplicated; F17.200 Nicotine dependence, unspecified, uncomplicated
CPT/HCPCS: 93005; 99284; 96372; 81025; 81001; 80307; 87491; 87591; 93010; J3490 ×2; Q0144; J0696

== ENCOUNTER 2016-11-19 09:48 | Emergency (ER) | payer MEDICAID ==
[2016-11-19 10:19] LABS: HEMATOCRIT 40.7 % (36.0-47.0); HEMOGLOBIN 13.4 g/dL (12.0-15.5); HGB HCT DIFFERENCE -0.5; MEAN CORPUSCULAR HEMOGLOBIN 28.5 pg (27.0-33.4); MEAN CORPUSCULAR VOLUME 86 fl (80-97); RED BLOOD COUNT 4.72 10^6/uL (3.72-5.28); WHITE BLOOD COUNT 13.2 10^3/uL (4.0-10.5)
[2016-11-19 10:35] VITALS: BP 127/81
[2016-11-19 10:41] LABS: ANION GAP 14 (5-19); BLOOD UREA NITROGEN 12 mg/dL (7-20); CARBON DIOXIDE 22 mmol/L (22-30); CHLORIDE 103 mmol/L (98-107); CREATININE RESULT 0.94 mg/dL (0.52-1.25); GLUCOSE 92 mg/dL (75-110); POTASSIUM 4.5 mmol/L (3.6-5.0); SODIUM 138.9 mmol/L (137-145)
[2016-11-19 12:37] LABS: CHLAM PCR NOT DETECTED (NOT DETECT)
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
== END 2016-11-19 11:45 | disposition left against medical advice (07) ==
LOC: ER 09:48
DX: N93.8 Other specified abnormal uterine and vaginal bleeding (principal)
CPT/HCPCS: 36415; 80048; 81025; 84703; 85027; 87491; 87591; 99281

== ENCOUNTER 2016-11-21 05:13 | Emergency (ER) | payer MEDICAID ==
--- NOTE | 2016-11-21 07:13 | ER Document Report ---
ED General - General Chief Complaint: Abdominal Pain Stated Complaint: ABDOMINAL PAIN Time Seen by Provider: 11/21/16 06:54 Mode of Arrival: Ambulatory Information source: Patient Notes: Patient presents to the emergency department with complaints of vaginal discharge and . The patient reports she is 11 weeks . Review of records notes past medical history of schizophrenia with her delusions centering around and sexual disease. She was recently evaluated for this in our emergency department and had a negative test. Treated prophylactically for STDs with Rocephin and Zithromax and Flagyl. Patient was prescribed Doxy and Flagyl on November 16.. Patient denies fever vomiting diarrhea. Patient is nontoxic looking. TRAVEL OUTSIDE OF THE [place] IN LAST 30 DAYS: No - HPI Onset: Other - Patient reports she has symptoms persistently. Onset/Duration: Persistent Quality of pain: No pain Associated symptoms: None Exacerbated by: Denies Relieved by: Denies Similar symptoms previously: Yes Recently seen / treated by doctor: Yes - Related Data Allergies/Adverse Reactions: No Known Allergies Allergy (Verified 11/19/16 10:21) Past Medical History - General Information source: Patient Last Menstrual Period: unsure - Social History Smoking Status: Unknown if Ever Smoked Cigarette use (# per day): No Frequency of alcohol use: None Drug Abuse: None - on november 16 patient was positive for cocaine Family History: Arthritis, DM, Hyperlipidemia, Hypertension Patient has suicidal ideation: No Patient has homicidal ideation: No Pulmonary Medical History: Reports: Hx Asthma Renal/ Medical History: Denies: Hx Peritoneal Dialysis Psychiatric Medical History: Reports: Hx Anxiety, Hx Bipolar Disorder, Hx Schizophrenia Past Surgical History: Reports: Hx Section - x1 - Immunizations Hx Diphtheria, Pertussis, Tetanus Vaccination: No Review of Systems - Review of Systems Notes: Review HPI for review of systems., All other systems negative Physical Exam - Vital signs Vitals: Temp Pulse Resp BP Pulse Ox 98.4 F 83 16 121/74 98 11/21/16 05:37 11/21/16 05:37 11/21/16 05:37 11/21/16 05:37 11/21/16 05:37 - Notes Notes: PHYSICAL EXAMINATION: GENERAL: non toxic looking HEAD: Atraumatic, normocephalic. EYES: Pupils equal round and reactive to light, extraocular movements intact, sclera anicteric, conjunctiva are normal. ENT: nares patent, oropharynx clear without exudates. Moist mucous membranes. NECK: Normal range of motion, supple without lymphadenopathy LUNGS: CTAB and equal. No wheezes rales or rhonchi. HEART: Regular rate and rhythm without murmurs ABDOMEN: Soft, no tenderness. No guarding, no rebound EXTREMITIES: Normal range of motion, NEUROLOGICAL: Cranial nerves grossly intact. Normal sensory/motor exams. PSYCH: Normal mood, normal affect. SKIN: Warm, Dry, normal turgor Course - Re-evaluation Re-evalutation: 11/21/16 08:08 Dr. Zambrano per [facility] guidelines patient is a frequent flyer. Patient has been treated for her alleged symptoms. Patient does not have symptoms of PID no back or abdominal pain vital signs stable, no fever, no complaints of pain with void. Patient has been instructed to follow-up with the health department. Patient was also counseled on using protection while having sex. Patient verbalized understanding to all instructions. Patient was recently treated with Rocephin and Zithromax and Flagyl prophylactic treatment will not be initiated. Patient did receive a prescription for Doxy and Flagyl on November 16. - Vital Signs Vital signs: Temp Pulse Resp BP Pulse Ox 98.9 F 79 17 111/54 L 93 11/21/16 08:05 11/21/16 08:05 11/21/16 08:05 11/21/16 08:05 11/21/16 08:05 Discharge - Discharge Clinical Impression: Vaginal discharge Condition: Stable Disposition: HOME, SELF-CARE Additional Instructions: *You have been evaluated for vaginal discharge * test was negative *Take medication as prescribed on November 16, 2016 *Follow up with your [facility] or the health department for recheck *Avoid sexual intercourse until follow up *Return to ED for worsening condition, changes, needs Monitor your blood pressure. Your blood pressure was elevated today. This may be because you were anxious, in pain or because you need medication. It is important to follow up with your primary care provider for full evaluation. Forms: Elevated Blood Pressure
[2016-11-21 07:47] LABS: APPEARANCE,URINE CLEAR; BILIRUBIN,URINE NEGATIVE (NEGATIVE); GLUCOSE, URINE NEGATIVE (NEGATIVE); KETONES,URINE NEGATIVE (NEGATIVE); LEUKOCYTE ESTERASE,URINE NEGATIVE (NEGATIVE); NITRITE,URINE NEGATIVE (NEGATIVE); PROTEIN,URINE NEGATIVE (NEGATIVE); URINE SPECIFIC GRAVITY 1.004; UROBILINOGEN,URINE NEGATIVE mg/dL (<2.0)
[2016-11-21 08:11] VITALS: BP 111/54
[2016-11-21 09:23] LABS: CHLAM PCR NOT DETECTED (NOT DETECT)
== END 2016-11-21 08:12 | disposition home or self-care (01) ==
LOC: ER 05:13
DX: N89.8 Other specified noninflammatory disorders of vagina (principal); R10.9 Unspecified abdominal pain; Z3A.11 11 weeks gestation of pregnancy
CPT/HCPCS: 81001; 81025; 87491; 87591; 99284

== ENCOUNTER 2016-11-22 19:00 | Emergency (ER) | payer MEDICAID ==
[2016-11-22 19:30] VITALS: BP 122/95
== END 2016-11-22 20:08 | disposition left against medical advice (07) ==
LOC: ER 19:00
DX: Z53.21 Procedure and treatment not carried out due to patient leaving prior to being seen by health care provider (principal)

== ENCOUNTER 2016-11-22 22:32 | Emergency (ER) | payer MEDICAID, OTHER ==
[2016-11-22 22:40] VITALS: BP 125/85
[2016-11-22] MEDS ORDERED: HYDROXYZINE PAMOATE 50 MG CAPSULE PO ONE (22:57)
--- NOTE | 2016-11-22 23:03 | ER Document Report ---
ED General - General Chief Complaint: Psych Problem Stated Complaint: WELL CHECK Time Seen by Provider: 11/22/16 22:44 Cannot obtain history due to: Mentally challenged Notes: Patient is a 31-year-old female, well-known to this emergency department who presents with a multitude of complaints. Patient is a very difficult historian due to her baseline mental illness but seems report her main concern is that her anxiety and "nerves" have been worse since her primary care doctor discontinued her chronic benzodiazepines due to finding of that she was using illicit substances. She is requesting something for her anxiety. Apparently in triage patient also reported passive suicidal ideation but denies this to me stating "I could never do that or harm anybody else but I kill Helflorencia Keller all the time". Denies any homicidal ideation. Denies any acute medical complaints. TRAVEL OUTSIDE OF THE [place] IN LAST 30 DAYS: No - Related Data Allergies/Adverse Reactions: No Known Allergies Allergy (Verified 11/19/16 10:21) Past Medical History - General Information source: Patient - Social History Smoking Status: Never Smoker Frequency of alcohol use: Occasional Drug Abuse: Cocaine Family History: Arthritis, DM, Hyperlipidemia, Hypertension Patient has suicidal ideation: Yes Patient has homicidal ideation: Yes Pulmonary Medical History: Reports: Hx Asthma Renal/ Medical History: Denies: Hx Peritoneal Dialysis Psychiatric Medical History: Reports: Hx Anxiety, Hx Bipolar Disorder, Hx Schizophrenia Past Surgical History: Reports: Hx Section - x1 - Immunizations Hx Diphtheria, Pertussis, Tetanus Vaccination: No Review of Systems - Review of Systems Notes: Constitutional: Negative for fever. HENT: Negative for sore throat. Eyes: Negative for visual changes. Cardiovascular: Negative for chest pain. Respiratory: Negative for shortness of breath. Gastrointestinal: Negative for abdominal pain, vomiting or diarrhea. Genitourinary: Negative for dysuria. Musculoskeletal: Negative for back pain. Skin: Negative for rash. Neurological: Negative for headaches, weakness or numbness. 10 point ROS negative except as marked above and in HPI. Physical Exam - Vital signs Vitals: Temp Pulse Resp BP Pulse Ox 97.9 F 85 18 125/85 98 11/22/16 22:38 11/22/16 22:38 11/22/16 22:38 11/22/16 22:38 11/22/16 22:38 Interpretation: Normal Notes: PHYSICAL EXAMINATION: GENERAL: Well-appearing, well-nourished and in no acute distress. HEAD: Atraumatic, normocephalic. EYES: Pupils equal round and reactive to light, extraocular movements intact, sclera anicteric, conjunctiva are normal. ENT: nares patent, oropharynx clear without exudates. Moist mucous membranes. NECK: Normal range of motion, supple without lymphadenopathy LUNGS: Breath sounds clear to auscultation bilaterally and equal. No wheezes rales or rhonchi. HEART: Regular rate and rhythm without murmurs ABDOMEN: Soft, nontender, normoactive bowel sounds. No guarding, no rebound. No masses appreciated. EXTREMITIES: Normal range of motion, no pitting or edema. No cyanosis. NEUROLOGICAL: No focal neurological deficits. Moves all extremities spontaneously and on command. PSYCH: Poor eye contact, below average intellectual functioning, SKIN: Warm, Dry, normal turgor, no rashes or lesions noted. Course - Re-evaluation Re-evalutation: 11/22/16 23:03 Patient presents complaining of increased anxiety over the last several days. This is different than the patient stated in triage and she was here earlier today but left without being seen. Review of prior psychiatric notes from prior visits appear to be consistent with patient's baseline behavior today. She denies any suicidal or homicidal ideation. No acute safety concerns. She will be started on Vistaril. At this time will discharge with return precautions and follow-up recommendations. Verbal discharge instructions given a the bedside and opportunity for questions given. Medication warnings reviewed. Patient is in agreement with this plan and has verbalized understanding of return precautions and the need for primary care follow-up in the next 24-72 hours. - Vital Signs Vital signs: Temp Pulse Resp BP Pulse Ox 97.9 F 85 18 125/85 98 11/22/16 22:38 11/22/16 22:38 11/22/16 22:38 11/22/16 22:38 11/22/16 22:38 Discharge - Discharge Clinical Impression: Anxiety Condition: Good Disposition: HOME, SELF-CARE Additional Instructions: Please return if you have thoughts of wanting to hurt yourself, hurt others, or have any other symptoms that are concerning to you. Prescriptions: Hydroxyzine Pamoate [Vistaril 50 mg Capsule] 50 mg PO Q12HP PRN #30 capsule PRN Reason:
== END 2016-11-22 23:14 | disposition home or self-care (01) ==
LOC: ER 22:32
DX: F41.1 Generalized anxiety disorder (principal)
CPT/HCPCS: 99283

== ENCOUNTER 2016-11-23 05:54 | Emergency (ER) | payer MEDICAID ==
[2016-11-23 06:32] VITALS: BP 114/65
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
== END 2016-11-23 07:02 | disposition home or self-care (01) ==
LOC: ER 05:54
DX: F41.9 Anxiety disorder, unspecified (principal); F20.9 Schizophrenia, unspecified; F31.9 Bipolar disorder, unspecified; L84 Corns and callosities; Z59.0 Homelessness; J45.909 Unspecified asthma, uncomplicated
CPT/HCPCS: 99283

== ENCOUNTER 2017-01-09 13:40 | Emergency (ER) | payer MEDICAID ==
--- NOTE | 2017-01-09 13:54 | ER Document Report ---
HPI - HPI Patient complains to provider of: Toe injury Onset: Just prior to arrival Onset/Duration: Sudden Quality of pain: Sharp Pain Level: 5 Context: Patient states she was walking down steps, tripped and injured her left great toe. Patient complains of pain with ambulation. Associated Symptoms: Other - Left great toe injury Exacerbated by: Standing, Movement, Walking Relieved by: Denies Similar symptoms previously: No Recently seen / treated by doctor: No - ROS ROS below otherwise negative: Yes Systems Reviewed and Negative: Yes All other systems reviewed and negative - REPRODUCTIVE Reproductive: DENIES: : - MUSCULOSKELETAL Musculoskeletal: REPORTS: Extremity pain, Swelling - DERM Skin Color: Normal Skin Problems: None Past Medical History - General Information source: Patient - Social History Smoking Status: Current Every Day Smoker Frequency of alcohol use: None Drug Abuse: None Occupation: None Family History: Arthritis, DM, Hyperlipidemia, Hypertension Pulmonary Medical History: Reports: Hx Asthma Renal/ Medical History: Denies: Hx Peritoneal Dialysis Psychiatric Medical History: Reports: Hx Anxiety, Hx Bipolar Disorder, Hx Schizophrenia Past Surgical History: Reports: Hx Section - x1 - Immunizations Hx Diphtheria, Pertussis, Tetanus Vaccination: No Vertical Provider Document - CONSTITUTIONAL Agree With Documented VS: Yes Exam Limitations: No Limitations General Appearance: WD/WN, No Apparent Distress - INFECTION CONTROL TRAVEL OUTSIDE OF THE [place] IN LAST 30 DAYS: No - HEENT HEENT: Atraumatic, Normocephalic - NECK Neck: Normal Inspection - RESPIRATORY Respiratory: No Respiratory Distress O2 Sat by Pulse Oximetry: 99 - CARDIOVASCULAR Pulses: Normal: Dorsalis pedis - MUSCULOSKELETAL/EXTREMETIES Musculoskeletal/Extremeties: MAEW, Tender - Left great toe tenderness along the entire digit, no obvious deformity. negative: Eccymosis - NEURO Level of Consciousness: Awake, Alert, Appropriate Motor/Sensory: No Motor Deficit - DERM Integumentary: Warm, Dry, No Rash Course - Vital Signs Vital signs: Temp Pulse Resp BP Pulse Ox 98.5 F 104 H 16 127/91 H 99 01/09/17 13:47 01/09/17 13:47 01/09/17 13:47 01/09/17 13:47 01/09/17 13:47 - Diagnostic Test Radiology reviewed: Image reviewed, Reports reviewed Procedures - Immobilization Left Foot Pre-Proc Neuro Vasc Exam: Normal Immobilizer type: Posterior ankle Performed by: PCT Post-Proc Neuro Vasc Exam: Normal Alignment checked and good: Yes Discharge - Discharge Clinical Impression: Fractured great toe Qualifiers: Encounter type: initial encounter Fracture type: closed Phalanx: proximal Fracture alignment: displaced Laterality: left Qualified Code(s): S92.412A - Displaced fracture of proximal phalanx of left great toe, initial encounter for closed fracture Condition: Stable Disposition: HOME, SELF-CARE Instructions: Use of Crutches ([facility]), Ice & Elevation ([facility]), Oral Narcotic Medication ([facility]), Splint Precautions ([facility]), Fractured Toe ([facility]) Additional Instructions: Return immediately for any new or worsening symptoms Followup with your primary care provider, call tomorrow to make a followup appointment Follow-up with orthopedic doctor, call today for an appointment Prescriptions: Hydrocodone/Acetaminophen [[place] 5-325 Tablet] 1 each PO Q4 PRN #15 tablet PRN Reason: Referrals: [facility] [Provider Group] - Follow up tomorrow
[2017-01-09] MEDS ORDERED: HYDROCODONE/ACETAMINOPHEN 5-325 MG TABLET PO ONE (14:38)
--- NOTE | 2017-01-09 14:49 | RADIOLOGY REPORT (SQ) ---
EXAM DESCRIPTION: TOE LEFT COMPLETED DATE/TIME: 01/09/2017 2:23 pm REASON FOR STUDY: fall, left great toe injury COMPARISON: None. NUMBER OF VIEWS: Three views. TECHNIQUE: AP, lateral, and oblique images acquired of the left first toe. LIMITATIONS: None. FINDINGS: MINERALIZATION: Normal. BONES: There is an oblique fracture involving the distal aspect of 1st proximal phalanx. This is bes t seen on the lateral. This extends to the distal articular surface. JOINTS: No effusions. SOFT TISSUES: No soft tissue swelling. No foreign body. OTHER: No other significant finding. IMPRESSION: Fracture of the 1st proximal phalanx. COMMENT: SITE OF TRAUMA/COMPLAINT MARKED/STAMP COMPLETED: Yes TECHNICAL DOCUMENTATION: JOB ID: [id number] [email or web address]- All Rights Reserved
[2017-01-09 15:26] VITALS: BP 135/74
== END 2017-01-09 15:26 | disposition home or self-care (01) ==
LOC: ER 13:40
PROC: 2W3RX1Z Immobilization of Left Lower Leg using Splint (ICD-10-PCS; principal; 2017-01-09)
DX: S92.412A Displaced fracture of proximal phalanx of left great toe, initial encounter for closed fracture (principal); W18.40XA Slipping, tripping and stumbling without falling, unspecified, initial encounter; F17.200 Nicotine dependence, unspecified, uncomplicated
CPT/HCPCS: 99283

== ENCOUNTER 2017-01-13 15:50 | Emergency (ER) | payer MEDICAID ==
[2017-01-13 16:10] VITALS: BP 138/94
[2017-01-13] MEDS ORDERED: HYDROCODONE/ACETAMINOPHEN 5-325 MG 6 TAB/DSPK PO PRN (16:55)
--- NOTE | 2017-01-13 16:56 | ER Document Report ---
ED Extremity Problem, Lower - General Chief Complaint: Toe Injury Stated Complaint: LEFT TOE INJURY Time Seen by Provider: 01/13/17 16:27 Mode of Arrival: Ambulatory Information source: Patient Notes: 31-year-old female presented to ED for complaint of pain in her left great toe. She reported that she had been seen recently and diagnosed with a fracture to the great toe but she been walking around all day and the pain was severe. She had been treated with a posterior ankle splint and crutches and [place] when she was seen several days ago. She was also given a prescription for the [place]. Patient states she does not know where she put the prescription and does not know where it is. The patient also stated that Carrillo had touched her toe and was healed so she did not know why it was still hurting. She did take some Aleve today but she states that it was not working. TRAVEL OUTSIDE OF THE [place] IN LAST 30 DAYS: No - HPI Patient complains to provider of: Injury, Pain, Swelling Location: Great Toe Occurred: Other - 01/09/2017 Where: Outdoors Onset/Duration: Persistent Quality of pain: Sharp, Throbbing Severity: Severe Pain Level: 5 Context: Barefoot Recent injury: Yes Associated symptoms: Painful ambulation Exacerbated by: Hanging down, Movement, Walking Relieved by: Nothing - Related Data Allergies/Adverse Reactions: No Known Allergies Allergy (Verified 01/13/17 16:07) Past Medical History - General Information source: Patient - Social History Smoking Status: Current Every Day Smoker Cigarette use (# per day): Yes Chew tobacco use (# tins/day): No Smoking Education Provided: Yes - less than 2 min Frequency of alcohol use: Occasional Drug Abuse: None Lives with: Family Family History: Arthritis, DM, Hyperlipidemia, Hypertension Patient has suicidal ideation: No Patient has homicidal ideation: No - Past Medical History Cardiac Medical History: Reports: None Pulmonary Medical History: Reports: Hx Asthma EENT Medical History: Reports: None Neurological Medical History: Reports: None Endocrine Medical History: Reports: None Renal/ Medical History: Reports: None Malignancy Medical History: Reports: None GI Medical History: Reports: None Musculoskeltal Medical History: Reports Hx Musculoskeletal Trauma Skin Medical History: Reports None Psychiatric Medical History: Reports: Hx Anxiety, Hx Bipolar Disorder, Hx Schizophrenia Traumatic Medical History: Reports: Hx Fractures - Left great toe Infectious Medical History: Reports: None Past Surgical History: Reports: Hx Section - x1 - Immunizations Hx Diphtheria, Pertussis, Tetanus Vaccination: No Review of Systems - Review of Systems Constitutional: No symptoms reported EENT: No symptoms reported Cardiovascular: No symptoms reported Respiratory: No symptoms reported Gastrointestinal: No symptoms reported Genitourinary: No symptoms reported Female Genitourinary: No symptoms reported Musculoskeletal: Other - Pain left great toe Skin: No symptoms reported Hematologic/Lymphatic: No symptoms reported Neurological/Psychological: No symptoms reported -: Yes All other systems reviewed and negative Physical Exam - Vital signs Vitals: Temp Pulse Resp BP Pulse Ox 97.5 F 94 20 138/94 H 97 01/13/17 16:07 01/13/17 16:07 01/13/17 16:07 01/13/17 16:07 01/13/17 16:07 Interpretation: Normal - General General appearance: Appears well, Alert - HEENT Head: Normocephalic, Atraumatic Eyes: Normal Pupils: PERRL - Respiratory Respiratory status: No respiratory distress Chest status: Nontender Breath sounds: Normal Chest palpation: Normal - Cardiovascular Rhythm: Regular Heart sounds: Normal auscultation Murmur: No - Abdominal Inspection: Normal Distension: No distension Bowel sounds: Normal Tenderness: Nontender Organomegaly: No organomegaly - Back Back: Normal, Nontender - Extremities General upper extremity: Normal inspection, Nontender, Normal color, Normal ROM , Normal temperature General lower extremity: Normal inspection, Normal color, Normal ROM, Normal temperature, Normal weight bearing. No: Jeancarlos's sign Foot: Tender - Left great toe - Neurological Neuro grossly intact: Yes Cognition: Normal Orientation: AAOx4 [place] Coma Scale Eye Opening: Spontaneous Derrick Coma Scale Verbal: Oriented [place] Coma Scale Motor: Obeys Commands Derrick Coma Scale Total: 15 Speech: Normal Motor strength normal: LUE, RUE, LLE, RLE Sensory: Normal - Psychological Associated symptoms: Normal affect, Normal mood - Skin Skin Temperature: Warm Skin Moisture: Dry Skin Color: Normal Course - Re-evaluation Re-evalutation: 01/13/17 21:57 Patient was seen in the emergency room on 01/09/2017 for a fractured left great toe. She was treated with a posterior ankle splint and provided with crutches [place] and a prescription for [place]. Patient states she did not like the stent so she took it off and she lost her prescription for the [place] and has been in pain since then. Ron came in via EMS and states she does not have a ride home. As soon as a splint was applied to her foot before I could go in and check it patient got up and walked around on her splint. When she was informed that she should not be walking on the splint until it was completely dried, she stated she needs to go right now and she needs of food and she needs a dinner right now, which she deserves a dinner right now. Patient informed she needed to please lay in the bed so that I could check her splint,then she needed to be patient long enough for me to get her discharge instructions written. Discharge papers were written and discussed with patient. Patient states she did not have her way home she was going to walk home. Patient was provided with a Ros[place] dispense back that she could take when she got home. Patient instructed that she needs to follow-up with orthopedics for this toe fracture. - Vital Signs Vital signs: Temp Pulse Resp BP Pulse Ox 97.5 F 94 20 138/94 H 97 01/13/17 16:07 01/13/17 16:07 01/13/17 16:07 01/13/17 16:07 01/13/17 16:07 Procedures - Immobilization Left Toe Great toe Immobilizer type: Posterior ankle - Patient refused her crutches Performed by: PCT Post-Proc Neuro Vasc Exam: Normal Alignment checked and good: Yes Discharge - Discharge Clinical Impression: Fractured great toe Qualifiers: Encounter type: subsequent encounter Fracture type: closed Phalanx: proximal Fracture alignment: nondisplaced Laterality: left Fracture healing: with routine healing Qualified Code(s): S92.415D - Nondisplaced fracture of proximal phalanx of left great toe, subsequent encounter for fracture with routine healing Condition: Stable Disposition: HOME, SELF-CARE Additional Instructions: Fractured Toe You have fractured your toe. Although this fracture doesn't need a cast or splint, emergency evaluation was needed to assess the straightness of the bones and joints. Reduction ("setting") is necessary for toe fractures which are crooked or twisted. A toe fracture will heal in about three weeks. Usually, the fractured toe is taped to the next toe. The second toe acts as a moving splint to protect the broken one. Ice and elevation help during the first 48 hours. You may need crutches at first if walking is painful. When you begin walking, be careful NOT to do things that hurt. If weight bearing is not comfortable within a few days, you may require a special shoe, walking boot, or cast. Call the doctor or return at once if severe swelling, severe pain, or numbness develop in the toe, or if you suspect you may have re-injured it. SPLINT PRECAUTIONS: A splint has been placed. This will protect the area while healing begins. Your problem does NOT normally require a cast. It MUST, however, be held still! Keep the splint on ALL THE TIME until instructed to remove it by the doctor. As you begin to use the area, be careful. You shouldn't do anything which causes discomfort -- you may disturb the injury even with the splint in place. After the initial period of rest and elevation, if splint does not prevent pain when you move, come back. You may require placement of a different splint , or a cast. If there is unexpected severe pain, or numbness, discoloration, or swelling beyond the splint, you should return at once. If you feel that the splint has broken or become loose, come back. USE OF CRUTCHES: The doctor has recommended that you not bear weight at this time. You will need to use crutches. Adjust the crutches so the tops come to about two inches under the armpit while you are standing upright. Use your hands -- not your armpits -- to support your weight. To get into a chair, support yourself with one crutch on the injured side. Hold the chair with the other hand, then lower yourself while putting all your weight on the good leg. Going up stairs is `good leg up, step up, then bring up crutches and bad leg.' Down stairs is `bad leg and crutches down, then bring good leg down.' If you develop numbness or swelling in an arm or hand, you are using the crutches incorrectly. Return if you are having any problems with the crutches. ICE & ELEVATION: Apply ice packs frequently against the painful area. Many different schedules are recommended, such as "20 minutes on, 20 minutes off" or "one hour ice, two hours rest." If you need to work, you may need to go longer between ice treatments. You should plan to have the area ice packed AT LEAST one- fourth of the time. The ice should be applied over the wrap, tape, or splint, or over a layer of cloth -- not directly against the skin. Some ice bags have a built-in cloth and can be put directly on the skin. Your injured part should be elevated as much as possible over the next 48 hours. Try to keep the injury above the level of the heart. Avoid use of the injured area. Elevation and rest will decrease the swelling. USE OF INAX-XQC-ETYBLAY IBUPROFEN: Ibuprofen (Advil, Nuprin, Medipren, Motrin IB) is a medication for fever and pain control. In addition, it has anti- inflammatory effects which may be beneficial, especially in the treatment of injuries. It's best to take ibuprofen with food. Persons with ulcer disease or allergy to aspirin should notify their physician of this before taking ibuprofen. Ibuprofen can be given every four to six hours, for a total of four doses daily. Age Pain or fever dose Antiinflammatory dose 6-8 yr 200 mg (1 tab) 200 mg (1 tab) 9-11 yr 200 mg (1 tab) 200-400 mg (1-2 tab) 11-14 yr 200-400 mg (1-2 tab) 400 mg (2 tab) 15-adult 400 mg (2 tab) 600 mg (3 tab) ORAL NARCOTIC MEDICATION: You have been given a norco dispsense pack for pain control. This medication is a narcotic. It's best taken with food, as nausea can result if taken on an empty stomach. Don't operate machinery or drive within six hours of taking this medication. Do not combine this medicine with alcohol, or with any medication which can cause sedation (such as cold tablets or sleeping pills) unless you get permission from the physician. Narcotics tend to cause constipation. If possible, drink plenty of fluids and eat a diet high in fiber and fruits. Please be aware that prescription narcotics also have the potential for abuse. People become addicted to these medications because of the general sense of wellbeing that they induce. This feeling along with a significant reduction in tension, anxiety, and aggression provides a stimulating seductive quality to these drugs. Once your pain is under control, we encourage you to discard your unused narcotics. FOLLOW-UP CARE: If you have been referred to a physician for follow-up care, call the physician s office for an appointment as you were instructed or within the next two days. If you experience worsening or a significant change in your symptoms, notify the physician immediately or return to the Emergency Department at any time for re-evaluation. Forms: Elevated Blood Pressure, Smoking Cessation Education Referrals: HANNA BORJAS MD [ACTIVE STAFF] - Follow up as needed
== END 2017-01-13 17:15 | disposition home or self-care (01) ==
LOC: ER 15:50
PROC: 2W3RX1Z Immobilization of Left Lower Leg using Splint (ICD-10-PCS; principal; 2017-01-13)
DX: S92.415D Nondisplaced fracture of proximal phalanx of left great toe, subsequent encounter for fracture with routine healing (principal); X58.XXXD Exposure to other specified factors, subsequent encounter; J45.909 Unspecified asthma, uncomplicated; F17.210 Nicotine dependence, cigarettes, uncomplicated; Z71.6 Tobacco abuse counseling
CPT/HCPCS: 99283

== ENCOUNTER 2017-01-15 19:05 | Emergency (ER) | payer MEDICAID ==
--- NOTE | 2017-01-15 20:10 | ER Document Report ---
HPI - HPI Patient complains to provider of: Left great toe pain Pain Level: Denies Context: Patient is a 31-year-old female that comes emergency department for chief complaint of left great toe pain, she reports worsening pain to the area and possible reinjury. She states she was placed in a splint initially but she took it off so she could shower. She was seen initially on 01/09/2017 for this and has been seen again in this department for it. She denies any other complaints. - REPRODUCTIVE Reproductive: DENIES: : - DERM Skin Color: Normal Past Medical History - General Information source: Patient - Social History Smoking Status: Never Smoker Frequency of alcohol use: None Drug Abuse: None Lives with: Family Family History: Arthritis, DM, Hyperlipidemia, Hypertension Patient has suicidal ideation: No Patient has homicidal ideation: No Pulmonary Medical History: Reports: Hx Asthma Renal/ Medical History: Denies: Hx Peritoneal Dialysis Musculoskeltal Medical History: Reports Hx Musculoskeletal Trauma Psychiatric Medical History: Reports: Hx Anxiety, Hx Bipolar Disorder, Hx Schizophrenia Traumatic Medical History: Reports: Hx Fractures - Left great toe Past Surgical History: Reports: Hx Section - x1 - Immunizations Hx Diphtheria, Pertussis, Tetanus Vaccination: No Vertical Provider Document - CONSTITUTIONAL General Appearance: WD/WN, No Apparent Distress - INFECTION CONTROL TRAVEL OUTSIDE OF THE [place] IN LAST 30 DAYS: No - HEENT HEENT: Atraumatic, Normocephalic - NECK Neck: Normal Inspection - RESPIRATORY Respiratory: Breath Sounds Normal, No Respiratory Distress O2 Sat by Pulse Oximetry: 98 - CARDIOVASCULAR Cardiovascular: Regular Rate, Regular Rhythm - GI/ABDOMEN Gastrointestinal: Abdomen Soft, Abdomen Non-Tender - BACK Back: Normal Inspection - MUSCULOSKELETAL/EXTREMETIES Musculoskeletal/Extremeties: MAEW, Tender - Minimally tender over the left great toe, no swelling, normal capillary refill and sensation, normal range of motion, normal foot exam otherwise. Patient walks without any difficulty. - NEURO Level of Consciousness: Awake, Alert, Appropriate Motor/Sensory: No Motor Deficit, No Sensory Deficit - DERM Integumentary: Warm, Dry, No Rash Course - Re-evaluation Re-evalutation: Toe actually does not appear changed despite patient walking on it and not appearing to take care of it. X-ray with no concerning abnormalities. Patient does not appear to actually be in pain. Toe actually looks pretty good on examination with no swelling or obvious signs of injury or tenderness. Normal capillary refill and sensation. Discussed with patient. She does agree to sisi taping and postop shoe instead of splinting and states she will actually use this. Given additional materials to use at home for this. Discussed orthopedic follow-up, return precautions. Patient verbalizes understanding and agreement. - Vital Signs Vital signs: Temp Pulse Resp BP Pulse Ox 97.6 F 68 20 129/99 H 98 01/15/17 19:13 01/15/17 19:13 01/15/17 19:13 01/15/17 19:13 01/15/17 19:13 Procedures - Immobilization Left foot/great toe Pre-Proc Neuro Vasc Exam: Normal Immobilizer type: Post-op shoe Performed by: SALOMON Post-Proc Neuro Vasc Exam: Normal Alignment checked and good: Yes Discharge - Discharge Clinical Impression: Fractured great toe Qualifiers: Encounter type: subsequent encounter Fracture type: closed Phalanx: proximal Fracture alignment: nondisplaced Laterality: left Fracture healing: with routine healing Qualified Code(s): S92.415D - Nondisplaced fracture of proximal phalanx of left great toe, subsequent encounter for fracture with routine healing Condition: Stable Disposition: HOME, SELF-CARE Additional Instructions: You have a fracture in your big toe, there is no additional concern on your x- ray today. This will continue to hurt for about 6 weeks, this needs to heal. I recommend using the protective shoe and the sisi taping which we showed you tonight. Follow-up of the orthopedics referral. Return to the emergency department for any concerning symptoms including swelling or severe pain of the area. Referrals: HANNA BORJAS MD [ACTIVE STAFF] - Follow up as needed
--- NOTE | 2017-01-15 21:05 | RADIOLOGY REPORT (SQ) ---
EXAM DESCRIPTION: TOE LEFT COMPLETED DATE/TIME: 01/15/2017 8:55 pm REASON FOR STUDY: ? re-injury, previous fracture COMPARISON: 01/09/2017 NUMBER OF VIEWS: Three views. TECHNIQUE: AP, lateral, and oblique images acquired of the left first toe. LIMITATIONS: None. FINDINGS: MINERALIZATION: Normal. BONES: There is been no appreciable change in the appearance of the fracture through the proximal pha lanx of the great toe. Alignment is stable. JOINTS: No effusions. SOFT TISSUES: No soft tissue swelling. No foreign body. OTHER: No other significant finding. IMPRESSION: Fracture of the proximal phalanx of the great toe. No significant change from prior derrek dy dated 01/09/2017 COMMENT: SITE OF TRAUMA/COMPLAINT MARKED/STAMP COMPLETED: NOT APPLICABLE. TECHNICAL DOCUMENTATION: JOB ID: [id number] [email or web address] All Rights Reserved
[2017-01-15 21:31] VITALS: BP 125/85
== END 2017-01-15 21:29 | disposition home or self-care (01) ==
LOC: ER 19:05
DX: S92.415D Nondisplaced fracture of proximal phalanx of left great toe, subsequent encounter for fracture with routine healing (principal); M79.675 Pain in left toe(s); X58.XXXD Exposure to other specified factors, subsequent encounter
CPT/HCPCS: 99283

== ENCOUNTER 2017-01-18 13:18 | Emergency (ER) | payer OTHER, MEDICAID ==
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
[2017-01-18 14:09] LABS: ABSOLUTE BASOPHILS # (AUTO) 0.1 10^3/uL (0.0-0.2); ABSOLUTE EOSINOPHILS # (AUTO) 0.3 10^3/uL (0.0-0.6); ABSOLUTE LYMPHOCYTES (AUTO) 3.3 10^3/uL (0.5-4.7); ABSOLUTE MONOCYTES (AUTO) 0.7 10^3/uL (0.1-1.4); ABSOLUTE NEUT (AUTO) 7.7 10^3/uL (1.7-8.2); BASOPHILS % (AUTO) 0.6 % (0-2); EOSINOPHILS % (AUTO) 2.4 % (0-6); HEMATOCRIT 39.6 % (36.0-47.0); HEMOGLOBIN 12.8 g/dL (12.0-15.5); HGB HCT DIFFERENCE -1.2; LYMPHOCYTES % (AUTO) 27.1 % (13-45); MEAN CORPUSCULAR HGB CONC 32.3 g/dL (32.0-36.0); MEAN CORPUSCULAR VOLUME 90 fl (80-97); MONOCYTES % (AUTO) 6.2 % (3-13); RED CELL DISTRIBUTION WIDTH 13.9 % (11.5-14.0); SEGMENTED NEUTROPHILS % (AUTO) 63.7 % (42-78)
[2017-01-18 14:20] LABS: ALANINE AMINOTRANSFERASE 39 U/L (9-52); ALBUMIN 4.4 g/dL (3.5-5.0); ALKALINE PHOSPHATASE 85 U/L (38-126); ANION GAP 12 (5-19); ASPARTATE AMINO TRANSFERASE 22 U/L (14-36); BILIRUBIN,DIRECT 0.3 mg/dL (0.0-0.4); BILIRUBIN,TOTAL 0.4 mg/dL (0.2-1.3); BLOOD UREA NITROGEN 14 mg/dL (7-20); CALCIUM 9.9 mg/dL (8.4-10.2); CARBON DIOXIDE 23 mmol/L (22-30); CHLORIDE 105 mmol/L (98-107); CREATININE RESULT 0.77 mg/dL (0.52-1.25); GLUCOSE 96 mg/dL (75-110); POTASSIUM 4.6 mmol/L (3.6-5.0); SODIUM 140.1 mmol/L (137-145); TOTAL PROTEIN 7.4 g/dL (6.3-8.2)
[2017-01-18 14:22] LABS: ALCOHOL < 10 mg/dL (NONE DETECTED)
[2017-01-18] MEDS ORDERED: FLUPHENAZINE DECANOATE INJ 125 MG/5 ML VIAL IM PRN (14:24)
[2017-01-18 14:32] LABS: APPEARANCE,URINE CLEAR; BILIRUBIN,URINE NEGATIVE (NEGATIVE); GLUCOSE, URINE NEGATIVE (NEGATIVE); KETONES,URINE NEGATIVE (NEGATIVE); LEUKOCYTE ESTERASE,URINE NEGATIVE (NEGATIVE); NITRITE,URINE NEGATIVE (NEGATIVE); PROTEIN,URINE NEGATIVE (NEGATIVE); URINE SPECIFIC GRAVITY 1.015; UROBILINOGEN,URINE NEGATIVE mg/dL (<2.0)
[2017-01-18 14:53] LABS: URINE BARBITURATES SCREEN NEGATIVE; URINE METHADONE SCREEN NEGATIVE; URINE OPIATES LOW NEGATIVE; URINE PHENCYCLIDINE SCREEN NEGATIVE
[2017-01-18 16:42] VITALS: BP 132/90
--- NOTE | 2017-01-18 20:24 | EKG REPORT ---
SEVERITY:- BORDERLINE ECG - SINUS RHYTHM INFERIOR Q WAVES, PROBABLY NORMAL VARIATION : Confirmed by: Joe Johnson MD 18-Jan-2017 20:24:18
== END 2017-01-18 16:40 | disposition home or self-care (01) ==
LOC: ER 13:18
DX: F25.0 Schizoaffective disorder, bipolar type (principal); E66.9 Obesity, unspecified; F22 Delusional disorders; F14.90 Cocaine use, unspecified, uncomplicated; F17.200 Nicotine dependence, unspecified, uncomplicated
CPT/HCPCS: 93005; 99284; 96372; 36415; 80307 ×4; 84703; 85025; 80053; 81001; 93010; J2680

== ENCOUNTER 2017-01-25 20:49 | Emergency (ER) | payer MEDICAID, OTHER ==
[2017-01-25 21:22] VITALS: BP 130/83
== END 2017-01-25 22:15 | disposition left against medical advice (07) ==
LOC: ER 20:49
DX: Z53.21 Procedure and treatment not carried out due to patient leaving prior to being seen by health care provider (principal)

== ENCOUNTER 2017-01-27 11:45 | Emergency (ER) | payer MEDICAID ==
[2017-01-27 11:56] VITALS: BP 133/76
--- NOTE | 2017-01-27 12:18 | ER Document Report ---
ED General - General Chief Complaint: Itching Stated Complaint: RASH Time Seen by Provider: 01/27/17 12:08 Mode of Arrival: Ambulatory Information source: Patient Notes: 31-year-old female extensive history of psychiatric disorder presents with complaints of hives on her right foot. Patient is times had been ongoing now for a few weeks Patient denies any fevers or chills TRAVEL OUTSIDE OF THE [place] IN LAST 30 DAYS: No - HPI Onset: Other Onset/Duration: Persistent Quality of pain: No pain Severity: Mild Pain Level: Denies Associated symptoms: Other Exacerbated by: Denies Relieved by: Denies Similar symptoms previously: No Recently seen / treated by doctor: Yes - Related Data Allergies/Adverse Reactions: No Known Allergies Allergy (Verified 01/27/17 11:51) Past Medical History - Social History Smoking Status: Never Smoker Cigarette use (# per day): No Chew tobacco use (# tins/day): No Smoking Education Provided: No Family History: Arthritis, DM, Hyperlipidemia, Hypertension Patient has suicidal ideation: No Pulmonary Medical History: Reports: Hx Asthma Renal/ Medical History: Denies: Hx Peritoneal Dialysis Musculoskeltal Medical History: Reports Hx Musculoskeletal Trauma Psychiatric Medical History: Reports: Hx Anxiety, Hx Bipolar Disorder, Hx Schizophrenia Traumatic Medical History: Reports: Hx Fractures - Left great toe Past Surgical History: Reports: Hx Section - x1 - Immunizations Hx Diphtheria, Pertussis, Tetanus Vaccination: No Review of Systems - Review of Systems Notes: REVIEW OF SYSTEMS: CONSTITUTIONAL : Denies fever, chills, or sweats. Denies recent illness. EENT: Denies eye, ear, throat, or mouth pain or symptoms. Denies nasal or sinus congestion or discharge. Denies throat, tongue, or mouth swelling or difficulty swallowing. CARDIOVASCULAR: Denies chest pain. Denies palpitations or racing or irregular heart beat. Denies ankle edema. RESPIRATORY: Denies cough, cold, or chest congestion. Denies shortness of breath, difficulty breathing, or wheezing. GASTROINTESTINAL: Denies abdominal pain or distention. Denies nausea, vomiting , or diarrhea. Denies blood in vomitus, stools, or per rectum. Denies black, tarry stools. Denies constipation. GENITOURINARY: Denies difficulty urinating, painful urination, burning, frequency, blood in urine, or discharge. FEMALE GENITOURINARY: Denies vaginal bleeding, heavy or abnormal periods, irregular periods. Denies vaginal discharge or odor. MUSCULOSKELETAL: Denies back or neck pain or stiffness. Denies joint pain or swelling. SKIN: Right foot hive HEMATOLOGIC : Denies easy bruising or bleeding. LYMPHATIC: Denies swollen, enlarged glands. NEUROLOGICAL: Denies confusion or altered mental status. Denies passing out or loss of consciousness. Denies dizziness or lightheadedness. Denies headache. Denies weakness or paralysis or loss of use of either side. Denies problems with gait or speech. Denies sensory loss, numbness, or tingling. Denies seizures. PSYCHIATRIC: Denies anxiety or stress. Denies depression, suicidal ideation, or homicidal ideation. ALL OTHER SYSTEMS REVIEWED AND NEGATIVE. PHYSICAL EXAMINATION: GENERAL: Well-appearing, well-nourished and in no acute distress. HEAD: Atraumatic, normocephalic. EYES: Pupils equal round and reactive to light, extraocular movements intact, conjunctiva are normal. ENT: Nares patent, oropharynx clear without exudates. Moist mucous membranes. NECK: Normal range of motion, supple without lymphadenopathy LUNGS: Breath sounds clear to auscultation bilaterally and equal. No wheezes rales or rhonchi. HEART: Regular rate and rhythm without murmurs ABDOMEN: Soft, nontender, nondistended abdomen. No guarding, no rebound. No masses appreciated. Female : deferred Musculoskeletal: Normal range of motion, no pitting or edema. No cyanosis. NEUROLOGICAL: Cranial nerves grossly intact. Normal speech, normal gait. Normal sensory, motor exams PSYCH: Normal mood, normal affect. SKIN: Left leg and boot right foot dorsal aspect scars and scabs with mild drainage clear fluid underneath Dictation was performed using ARI voice recognition software Physical Exam - Vital signs Vitals: Temp Pulse Resp BP Pulse Ox 98.7 F 92 16 133/76 H 98 01/27/17 11:54 01/27/17 11:54 01/27/17 11:54 01/27/17 11:54 01/27/17 11:54 Course - Re-evaluation Re-evalutation: 01/27/17 12:18 Patient has irritation from her sandals which is causing a Y shaped scabbing of her foot, as a result I am concerned about infectious process and will start the patient on antibiotics. Unfortunately the patient does not believe that she has an infection believe she only has hives, I have tried to explain this to her multiple times however she is in her usual state of psychological disorder. Patient has been explained that she needs to stop wearing the sandals and must have follow-up care for her foot or else it will get worse and she may lose her leg. Patient again does not like this answer 01/27/17 13:49 Otherwise she is stable for discharge After performing a Medical Screening Examination, I estimate there is LOW risk for OPEN FRACTURE, COMPARTMENT SYNDROME, TENDON RUPTURE, ACUTE NEUROVASCULAR INJURY, or RETAINED FOREIGN BODY, thus I consider the discharge disposition reasonable. Also, there is no evidence or peritonitis, sepsis, or toxicity. I have reevaluated this patient multiple times and no significant life threatening changes are noted. The patient and I have discussed the diagnosis and risks, and we agree with discharging home with close follow-up with the understanding that symptoms and presentations can change. We also discussed returning to the Emergency Department immediately if new or worsening symptoms occur. We have discussed the symptoms which are most concerning (e.g., changing or worsening pain, fever, numbness, weakness, cool or painful digits) that necessitate immediate return. - Vital Signs Vital signs: Temp Pulse Resp BP Pulse Ox 98.7 F 92 16 133/76 H 98 01/27/17 11:54 01/27/17 11:54 01/27/17 11:54 01/27/17 11:54 01/27/17 11:54 Discharge - Discharge Clinical Impression: Foot ulcer Qualifiers: Laterality: right Non-pressure ulcer stage: limited to breakdown of skin Qualified Code(s): L97.511 - Non-pressure chronic ulcer of other part of right foot limited to breakdown of skin Condition: Stable Disposition: HOME, SELF-CARE Instructions: Infections ([facility]) Additional Instructions: Follow up with your physician tomorrow for further care or return to the ED IMMEDIATELY if symptoms worsen or new concerns occur. If you cannot afford to follow up with your primary care physician a list of low cost clinics have been provided at the end of your discharge papers as well. Prescriptions: Cephalexin Monohydrate [Keflex 500 mg Capsule] 500 mg PO Q6H 10 Days capsule
== END 2017-01-27 12:22 | disposition home or self-care (01) ==
LOC: ER 11:45
DX: L97.511 Non-pressure chronic ulcer of other part of right foot limited to breakdown of skin (principal); L50.9 Urticaria, unspecified; R23.4 Changes in skin texture; F99 Mental disorder, not otherwise specified; J45.909 Unspecified asthma, uncomplicated
CPT/HCPCS: 99282

== ENCOUNTER 2017-01-29 14:15 | Emergency (ER) | payer MEDICAID ==
[2017-01-29] MEDS ORDERED: DIPHENHYDRAMINE HCL 25 MG CAPSULE PO ONE (17:48)
[2017-01-29] MEDS ORDERED: SILVER SULFADIAZINE 1% CREAM 400 GM TP PRN (17:48)
--- NOTE | 2017-01-29 17:49 | ER Document Report ---
ED Skin Rash/Insect Bite/Abscs - General Chief Complaint: Rash Stated Complaint: ISSUE WITH FOOT Time Seen by Provider: 01/29/17 17:05 Mode of Arrival: Ambulatory Information source: Patient Notes: For bilateral foot pain that is her chronic foot pain with sores to the tops and bottoms of her feet. Patient walks barefooted everywhere, comes into the emergency department without any shoes on. She denies any bleeding or discharge from the sores. Patient also complains of anxiety and would like something for her anxiety, request Benadryl. TRAVEL OUTSIDE OF THE [place] IN LAST 30 DAYS: No - Related Data Allergies/Adverse Reactions: No Known Allergies Allergy (Verified 01/30/17 09:37) Past Medical History - General Information source: Patient - Social History Smoking Status: Never Smoker Chew tobacco use (# tins/day): No Frequency of alcohol use: None Drug Abuse: None Family History: Arthritis, DM, Hyperlipidemia, Hypertension Pulmonary Medical History: Reports: Hx Asthma Renal/ Medical History: Denies: Hx Peritoneal Dialysis Musculoskeltal Medical History: Reports Hx Musculoskeletal Trauma Psychiatric Medical History: Reports: Hx Anxiety, Hx Bipolar Disorder, Hx Schizophrenia Traumatic Medical History: Reports: Hx Fractures - Left great toe Past Surgical History: Reports: Hx Section - x1 - Immunizations Hx Diphtheria, Pertussis, Tetanus Vaccination: No Review of Systems - Review of Systems Constitutional: No symptoms reported EENT: No symptoms reported Cardiovascular: No symptoms reported Respiratory: No symptoms reported Gastrointestinal: No symptoms reported Genitourinary: No symptoms reported Female Genitourinary: No symptoms reported Musculoskeletal: No symptoms reported Skin: See HPI Hematologic/Lymphatic: No symptoms reported Neurological/Psychological: See HPI Physical Exam - Vital signs Vitals: Temp Pulse Resp BP Pulse Ox 98.3 F 86 18 139/82 H 98 01/29/17 14:37 01/29/17 14:37 01/29/17 14:37 01/29/17 14:37 01/29/17 14:37 - Notes Notes: PHYSICAL EXAMINATION: GENERAL: Anxious, pacing around room and hallway in the emergency department, in no acute distress. HEAD: Atraumatic, normocephalic. EYES: Pupils equal round and reactive to light, extraocular movements intact, sclera anicteric, conjunctiva are normal. NECK: Normal range of motion, supple without lymphadenopathy LUNGS: CTAB and equal. No wheezes rales or rhonchi. HEART: Regular rate and rhythm without murmurs ABDOMEN: Soft, no tenderness. No guarding, no rebound BACK: no vertebral tenderness, normal ROM GI/: no CVA tenderness EXTREMITIES: Normal range of motion, no pitting edema. No cyanosis. NEUROLOGICAL: Cranial nerves grossly intact. Normal sensory/motor exams. PSYCH: Anxious, delusional SKIN: Warm, Dry, normal turgor,crusted sores to dorsal and plantar surface of bilateral feet, no erythema, no drainage or bleeding Course - Re-evaluation Re-evalutation: 01/30/17 18:40 Patient got angry with me because I gave her Benadryl, however she requested Benadryl specifically for her anxiety. I did send her home with silver sulfadiazine cream from here for her feet although they are chronic. Patient stated to me today that she also has a sore throat because she "cut out my own tonsils while I was doing conception with a luz, as you can see, I've been bleeding a lot, as you can see." Her tonsils are obviously present today. No bleeding. - Vital Signs Vital signs: Temp Pulse Resp BP Pulse Ox 98.0 F 80 16 130/75 H 100 01/29/17 18:01 01/29/17 18:01 01/29/17 18:01 01/29/17 18:01 01/29/17 18:01 Discharge - Discharge Clinical Impression: Foot abrasion, non-infected Condition: Stable Disposition: HOME, SELF-CARE Additional Instructions: Return immediately for any new or worsening symptoms. Follow up with primary care provider, call tomorrow to make followup appointment.
[2017-01-29 18:02] VITALS: BP 130/75
== END 2017-01-29 18:02 | disposition home or self-care (01) ==
LOC: ER 14:15
DX: S90.819A Abrasion, unspecified foot, initial encounter (principal); R21 Rash and other nonspecific skin eruption; M79.672 Pain in left foot; M79.671 Pain in right foot; G89.29 Other chronic pain; F41.9 Anxiety disorder, unspecified; X58.XXXA Exposure to other specified factors, initial encounter
CPT/HCPCS: 99282; J3490

== ENCOUNTER 2017-01-29 20:37 | Emergency (ER) | payer MEDICAID ==
[2017-01-29 21:16] VITALS: BP 132/87
[2017-01-29 23:39] LABS: AMORPHOUS SEDIMENT,URINE TRACE /HPF; APPEARANCE,URINE SLIGHTLY-CLOUDY; BILIRUBIN,URINE NEGATIVE (NEGATIVE); GLUCOSE, URINE NEGATIVE (NEGATIVE); KETONES,URINE NEGATIVE (NEGATIVE); LEUKOCYTE ESTERASE,URINE NEGATIVE (NEGATIVE); NITRITE,URINE NEGATIVE (NEGATIVE); PROTEIN,URINE NEGATIVE (NEGATIVE); URINE SPECIFIC GRAVITY 1.014
== END 2017-01-30 02:35 | disposition left against medical advice (07) ==
LOC: ER 20:37
DX: Z53.9 Procedure and treatment not carried out, unspecified reason (principal); R10.9 Unspecified abdominal pain
CPT/HCPCS: 81001; 81025

== ENCOUNTER 2017-01-30 08:31 | Emergency (ER) | payer MEDICAID ==
[2017-01-30 08:50] VITALS: BP 133/88
[2017-01-30] MEDS ORDERED: ACETAMINOPHEN 325 MG TABLET PO ONE (09:32)
--- NOTE | 2017-01-30 09:38 | ER Document Report ---
HPI - HPI Pain Level: 3 Notes: Patient is a 31-year-old female who presents the ED for the second time in 2 days for bilateral feet pain patient was diagnosed with abrasions to the bilateral feet. Patient states that she has been placing a cream on it, but does not know what she is placing on her feet. Patient states that she has continued discomfort in her feet and is requesting pain medication. She has not noticed any abscess, discharge, or red streaks. The pain does not radiate otherwise. She still able to walk without any difficulties. Denies any drug allergies. Denies any headache, fever, URI, sore throat, chest pain, palpitations, syncope, cough, shortness of breath, wheeze, dyspnea, abdominal pain, nausea/vomiting/diarrhea. - ROS Notes: REVIEW OF SYSTEMS: CONSTITUTIONAL : Denies fever, chills, or sweats. Denies recent illness. EENT: Denies eye, ear, throat, or mouth pain or symptoms. Denies nasal or sinus congestion or discharge. Denies throat, tongue, or mouth swelling or difficulty swallowing. CARDIOVASCULAR: Denies chest pain. Denies palpitations or racing or irregular heart beat. Denies ankle edema. RESPIRATORY: Denies cough, cold, or chest congestion. Denies shortness of breath, difficulty breathing, or wheezing. GASTROINTESTINAL: Denies abdominal pain or distention. Denies nausea, vomiting , or diarrhea. Denies blood in vomitus, stools, or per rectum. Denies black, tarry stools. Denies constipation. GENITOURINARY: Denies difficulty urinating, painful urination, burning, frequency, blood in urine, or discharge. MUSCULOSKELETAL: see hpi SKIN: see hpi NEUROLOGICAL: Denies confusion or altered mental status. Denies passing out or loss of consciousness. Denies dizziness or lightheadedness. Denies headache. Denies weakness or paralysis or loss of use of either side. Denies problems with gait or speech. Denies sensory loss, numbness, or tingling. ALL OTHER SYSTEMS REVIEWED AND NEGATIVE. Dictation was performed using [employer] voice recognition software - REPRODUCTIVE Reproductive: DENIES: : - DERM Skin Color: Normal Past Medical History - Social History Smoking Status: Unknown if Ever Smoked Family History: Arthritis, DM, Hyperlipidemia, Hypertension Patient has suicidal ideation: No Patient has homicidal ideation: No Pulmonary Medical History: Reports: Hx Asthma Renal/ Medical History: Denies: Hx Peritoneal Dialysis Musculoskeltal Medical History: Reports Hx Musculoskeletal Trauma Psychiatric Medical History: Reports: Hx Anxiety, Hx Bipolar Disorder, Hx Schizophrenia Traumatic Medical History: Reports: Hx Fractures - Left great toe Past Surgical History: Reports: Hx Section - x1 - Immunizations Hx Diphtheria, Pertussis, Tetanus Vaccination: No Vertical Provider Document - CONSTITUTIONAL Agree With Documented VS: Yes Notes: PHYSICAL EXAMINATION: GENERAL: Well-appearing, well-nourished and in no acute distress. LUNGS: Breath sounds clear to auscultation bilaterally and equal. No wheezes rales or rhonchi. HEART: Regular rate and rhythm without murmurs, rubs, gallops. Musculoskeletal: Feet b/l: FROM to passive/active. Strength 5+/5. Non-tender. N/V intact. Extremities: No cyanosis, clubbing, or edema b/l. Peripheral pulses 2+. Capillary refill less than 3 seconds. NEUROLOGICAL: Cranial nerves grossly intact. Normal speech, normal gait. Normal sensory, motor exams PSYCH: Normal mood, normal affect. SKIN: abrasions b/l dorsal feet. No erythema, abscess, discharge, or streaks. + occ fissure in the skin. - INFECTION CONTROL TRAVEL OUTSIDE OF THE [place] IN LAST 30 DAYS: No - RESPIRATORY O2 Sat by Pulse Oximetry: 97 Course - Re-evaluation Re-evalutation: 01/30/17 09:35 Patient is an afebrile, well-hydrated, 31-year-old female who presents to the ED with abrasions to the bilateral feet on the dorsal side. Vitals are stable. PE otherwise unremarkable. Low suspicion/risk for any neurovascular compromise, sepsis, necrotizing fasciitis, fracture, or dislocation. Tylenol 650 given p.o. today. Patient was given several packets of bacitracin to apply as directed. Conservative measures otherwise for symptoms. Recheck with your PCM this week. Return to the ED with any worsening/concerning symptoms otherwise as reviewed in discharge. Patient is in agreement. - Vital Signs Vital signs: Temp Pulse Resp BP Pulse Ox 98.3 F 102 H 20 133/88 H 97 01/30/17 08:44 01/30/17 08:44 01/30/17 08:44 01/30/17 08:44 01/30/17 08:44 Discharge - Discharge Clinical Impression: Abrasion of foot without infection Condition: Stable Disposition: HOME, SELF-CARE Instructions: Bactroban Ointment ([facility]), Soap Cleansing ([facility]) Additional Instructions: Wash her feet daily with soap and water Apply bacitracin once daily Keep the skin clean Tylenol/ibuprofen if needed Recheck with your PCM this week Return to the ED with any worsening symptoms and/or development of fever, headache, chest pain, palpitations, syncope, shortness of breath, trouble breathing, abdominal pain, n/v/d, abscess, redness, discharge, red streaks, or other worsening symptoms that are concerning to you. Referrals: [facility] [Provider Group] - Follow up in 1 week
== END 2017-01-30 09:42 | disposition home or self-care (01) ==
LOC: ER 08:31
DX: S90.812A Abrasion, left foot, initial encounter (principal); S90.811A Abrasion, right foot, initial encounter; X58.XXXA Exposure to other specified factors, initial encounter; R23.4 Changes in skin texture; J45.909 Unspecified asthma, uncomplicated
CPT/HCPCS: 99283; J3490

== ENCOUNTER 2017-02-04 09:30 | Emergency (ER) | payer MEDICAID ==
[2017-02-04 09:43] VITALS: BP 120/87
== END 2017-02-04 19:20 | disposition left against medical advice (07) ==
LOC: ER 09:30
DX: Z53.21 Procedure and treatment not carried out due to patient leaving prior to being seen by health care provider (principal)

== ENCOUNTER 2017-02-05 18:25 | Emergency (ER) | payer MEDICAID ==
[2017-02-05 18:31] VITALS: BP 136/73
[2017-02-05] MEDS ORDERED: IBUPROFEN 800 MG TABLET PO ONE (19:07)
--- NOTE | 2017-02-05 19:13 | ER Document Report ---
HPI - HPI Patient complains to provider of: toe pain Pain Level: 2 Context: 31 yo female brought to ED via EMS for c/o pain to left great toe. pt was walking to the store, barefooted, when she felt "ropes" on her feet. Pt reports that she has broken her toe in the past and has pain to top of her foot. pt is requesting pain medication. Pt has been seen in ED x 10 this past month for various foot complaints. pt is homeless, walks barefooted. . pt has an extensive psych hx Associated Symptoms: None Exacerbated by: Walking Relieved by: Denies Similar symptoms previously: Yes Recently seen / treated by doctor: Yes - CARDIOVASCULAR Cardiovascular: DENIES: Chest pain - REPRODUCTIVE Reproductive: DENIES: : - DERM Skin Color: Normal, [place] Past Medical History - General Information source: Patient - Social History Smoking Status: Current Every Day Smoker Chew tobacco use (# tins/day): No Frequency of alcohol use: None Drug Abuse: None Lives with: Family Family History: Arthritis, DM, Hyperlipidemia, Hypertension Pulmonary Medical History: Reports: Hx Asthma Renal/ Medical History: Denies: Hx Peritoneal Dialysis Musculoskeltal Medical History: Reports Hx Musculoskeletal Trauma Psychiatric Medical History: Reports: Hx Anxiety, Hx Bipolar Disorder, Hx Schizophrenia Traumatic Medical History: Reports: Hx Fractures - Left great toe Past Surgical History: Reports: Hx Section - x1 - Immunizations Hx Diphtheria, Pertussis, Tetanus Vaccination: No Vertical Provider Document - CONSTITUTIONAL Agree With Documented VS: Yes Exam Limitations: No Limitations General Appearance: WD/WN, No Apparent Distress - INFECTION CONTROL TRAVEL OUTSIDE OF THE [place] IN LAST 30 DAYS: No - HEENT HEENT: Atraumatic - NECK Neck: Supple - RESPIRATORY Respiratory: Breath Sounds Normal, No Respiratory Distress O2 Sat by Pulse Oximetry: 96 - CARDIOVASCULAR Cardiovascular: Regular Rate, Regular Rhythm - MUSCULOSKELETAL/EXTREMETIES Notes: calloused feet. no edema, deformity or echymosis. + abrasions to bilat 2nd toes. distal SMC Course - Re-evaluation Re-evalutation: 02/05/17 19:15 Patient is afebrile, well-hydrated, 31-year-old female who presents to the ED c/ o toe pain. she has abrasions to bilateral dorsal 2nd toes.There are no signs of infection. Vitals are stable. PE otherwise unremarkable. Low suspicion/ risk for any neurovascular compromise, sepsis, necrotizing fasciitis, fracture, or dislocation. Motrin given p.o. today. Patient was given several packets of bacitracin to apply abrasions. Conservative measures otherwise for symptoms. Recheck with your PCM this week. Return to the ED with any worsening/ concerning symptoms otherwise as reviewed in discharge. Patient is in agreement. - Vital Signs Vital signs: Temp Pulse Resp BP Pulse Ox 98.5 F 93 16 136/73 H 96 02/05/17 18:30 02/05/17 18:30 02/05/17 18:30 02/05/17 18:30 02/05/17 18:30 Discharge - Discharge Clinical Impression: Toe pain, left Condition: Stable Disposition: HOME, SELF-CARE Instructions: Acetaminophen, Use of [id number] Ibuprofen ([facility]) Additional Instructions: Wear shoes to protect your feet Wash her feet daily with soap and water Apply bacitracin to abrasions daily Keep the skin clean Tylenol/ibuprofen if needed Recheck with your PCM this week Return to the ED with any worsening symptoms and/or development of fever, headache, chest pain, palpitations, syncope, shortness of breath, trouble breathing, abdominal pain, n/v/d, abscess, redness, discharge, red streaks, or other worsening symptoms that are concerning to you.
== END 2017-02-05 19:31 | disposition home or self-care (01) ==
LOC: ER 18:25
DX: M79.675 Pain in left toe(s) (principal); S90.414A Abrasion, right lesser toe(s), initial encounter; S90.415A Abrasion, left lesser toe(s), initial encounter; X58.XXXA Exposure to other specified factors, initial encounter; J45.909 Unspecified asthma, uncomplicated; F17.200 Nicotine dependence, unspecified, uncomplicated; Z59.0 Homelessness; Z87.81 Personal history of (healed) traumatic fracture
CPT/HCPCS: 99283; J3490

== ENCOUNTER 2017-02-11 12:52 | Emergency (ER) | payer MEDICAID ==
--- NOTE | 2017-02-11 13:23 | ER Document Report ---
HPI - HPI Patient complains to provider of: Cuts to feet Onset: Other Onset/Duration: Sudden Quality of pain: Achy Severity: Mild Pain Level: 1 Context: Patient states she has been getting cuts to her feet although she has been wearing her shoes. Denies bleeding. Associated Symptoms: None Exacerbated by: Walking Relieved by: Denies Similar symptoms previously: Yes Recently seen / treated by doctor: No - ROS ROS below otherwise negative: Yes Systems Reviewed and Negative: Yes All other systems reviewed and negative - CONSTITUTIONAL Constitutional: DENIES: Fever - EENT EENT: DENIES: Congestion - NEURO Neurology: DENIES: Headache - CARDIOVASCULAR Cardiovascular: DENIES: Chest pain - RESPIRATORY Respiratory: DENIES: Trouble Breathing - GASTROINTESTINAL Gastrointestinal: DENIES: Abdominal Pain - URINARY Urinary: DENIES: Dysuria - REPRODUCTIVE Reproductive: DENIES: : - MUSCULOSKELETAL Musculoskeletal: REPORTS: Extremity pain - Feet - DERM Skin Color: Other Past Medical History - General Information source: Patient - Social History Smoking Status: Current Every Day Smoker Cigarette use (# per day): Yes Frequency of alcohol use: Occasional Drug Abuse: None Lives with: Friend Family History: Arthritis, DM, Hyperlipidemia, Hypertension Patient has suicidal ideation: No Patient has homicidal ideation: No Pulmonary Medical History: Reports: Hx Asthma Musculoskeltal Medical History: Reports Hx Musculoskeletal Trauma Psychiatric Medical History: Reports: Hx Anxiety, Hx Bipolar Disorder, Hx Schizophrenia Traumatic Medical History: Reports: Hx Fractures - Left great toe Past Surgical History: Reports: Hx Section - x1 - Immunizations Hx Diphtheria, Pertussis, Tetanus Vaccination: No Vertical Provider Document - CONSTITUTIONAL Agree With Documented VS: Yes Exam Limitations: No Limitations General Appearance: WD/WN, No Apparent Distress - INFECTION CONTROL TRAVEL OUTSIDE OF THE [place] IN LAST 30 DAYS: No - HEENT HEENT: Atraumatic, Normocephalic - RESPIRATORY Respiratory: Breath Sounds Normal, No Respiratory Distress O2 Sat by Pulse Oximetry: 96 - CARDIOVASCULAR Cardiovascular: Regular Rate, Regular Rhythm - GI/ABDOMEN Gastrointestinal: Abdomen Soft - MUSCULOSKELETAL/EXTREMETIES Musculoskeletal/Extremeties: MAEW Notes: Bottoms of feet were black with dirt. After soaking and washing, - NEURO Level of Consciousness: Awake, Alert - DERM Integumentary: Warm, Dry, Rash - Patient has thickened and cracked skin to both heels, also has multiple areas of calluses to bottom of both feet. No bleeding noted, no signs of infection noted Course - Vital Signs Vital signs: Temp Pulse Resp BP Pulse Ox 98.0 F 94 16 125/78 96 02/11/17 12:56 02/11/17 12:56 02/11/17 12:56 02/11/17 12:56 02/11/17 12:56 Discharge - Discharge Clinical Impression: Callus of foot, Cracked skin on feet Condition: Good Disposition: HOME, SELF-CARE Additional Instructions: Keep feet clean and dry, wear shoes at all times Thick moisturizing cream to heels and cover with socks Follow-up with your doctor for recheck Friday Return as needed
[2017-02-11 14:46] VITALS: BP 114/55
== END 2017-02-11 14:40 | disposition home or self-care (01) ==
LOC: ER 12:52
DX: L84 Corns and callosities (principal); R23.4 Changes in skin texture; M79.672 Pain in left foot; M79.671 Pain in right foot; F17.210 Nicotine dependence, cigarettes, uncomplicated; J45.909 Unspecified asthma, uncomplicated
CPT/HCPCS: 99283

== ENCOUNTER 2017-02-12 17:55 | Emergency (ER) | payer MEDICAID | END 2017-02-12 18:30 | disposition left against medical advice (07) | LOC: ER 17:55 | DX: Z53.21 Procedure and treatment not carried out due to patient leaving prior to being seen by health care provider (principal) ==

== ENCOUNTER 2017-03-28 03:58 | Emergency (ER) | payer MEDICAID | END 2017-03-28 04:05 | disposition left against medical advice (07) | LOC: ER 03:58 | DX: Z53.9 Procedure and treatment not carried out, unspecified reason (principal); R10.9 Unspecified abdominal pain ==

== ENCOUNTER 2017-03-30 15:29 | Emergency (ER) | payer MEDICAID ==
--- NOTE | 2017-03-30 15:46 | ER Document Report ---
ED Medical Screen (RME) - General Chief Complaint: Abdominal Pain Stated Complaint: VAGINAL PAIN Time Seen by Provider: 03/30/17 15:42 Mode of Arrival: Ambulatory Information source: Patient - pt with c/o abdominal and vaginal pain with yellow d/c for the past several months. Also thinks she may be . TRAVEL OUTSIDE OF THE [place] IN LAST 30 DAYS: No - Related Data Allergies/Adverse Reactions: No Known Allergies Allergy (Verified 03/30/17 15:35) Past Medical History - Social History Chew tobacco use (# tins/day): No Frequency of alcohol use: Occasional Drug Abuse: None Pulmonary Medical History: Reports: Hx Asthma Renal/ Medical History: Denies: Hx Peritoneal Dialysis Musculoskeltal Medical History: Reports Hx Musculoskeletal Trauma Psychiatric Medical History: Reports: Hx Anxiety, Hx Attention Deficit Hyperactivity Disorder, Hx Bipolar Disorder, Hx Schizophrenia Traumatic Medical History: Reports: Hx Fractures - Left great toe Past Surgical History: Reports: Hx Section - x1 - Immunizations Hx Diphtheria, Pertussis, Tetanus Vaccination: No Physical Exam - Vital signs Vitals: Temp Pulse Resp BP Pulse Ox 97.3 F 82 18 122/75 97 03/30/17 15:34 03/30/17 15:34 03/30/17 15:34 03/30/17 15:34 03/30/17 15:34 Course - Vital Signs Vital signs: Temp Pulse Resp BP Pulse Ox 97.3 F 82 18 122/75 97 03/30/17 15:34 03/30/17 15:34 03/30/17 15:34 03/30/17 15:34 03/30/17 15:34
[2017-03-30 16:38] LABS: ABSOLUTE EOSINOPHILS # (AUTO) 0.3 10^3/uL (0.0-0.6); ABSOLUTE LYMPHOCYTES (AUTO) 3.9 10^3/uL (0.5-4.7); ABSOLUTE MONOCYTES (AUTO) 0.8 10^3/uL (0.1-1.4); ABSOLUTE NEUT (AUTO) 6.2 10^3/uL (1.7-8.2); BASOPHILS % (AUTO) 0.2 % (0-2); EOSINOPHILS % (AUTO) 2.3 % (0-6); HEMATOCRIT 39.9 % (36.0-47.0); HEMOGLOBIN 13.3 g/dL (12.0-15.5); LYMPHOCYTES % (AUTO) 35.3 % (13-45); MEAN CORPUSCULAR HEMOGLOBIN 29.1 pg (27.0-33.4); MEAN CORPUSCULAR HGB CONC 33.3 g/dL (32.0-36.0); MEAN CORPUSCULAR VOLUME 87 fl (80-97); MONOCYTES % (AUTO) 6.8 % (3-13); RED BLOOD COUNT 4.57 10^6/uL (3.72-5.28); RED CELL DISTRIBUTION WIDTH 13.6 % (11.5-14.0); SEGMENTED NEUTROPHILS % (AUTO) 55.4 % (42-78); WHITE BLOOD COUNT 11.1 10^3/uL (4.0-10.5)
[2017-03-30 16:41] LABS: APPEARANCE,URINE CLEAR; BILIRUBIN,URINE NEGATIVE (NEGATIVE); GLUCOSE, URINE NEGATIVE (NEGATIVE); KETONES,URINE NEGATIVE (NEGATIVE); LEUKOCYTE ESTERASE,URINE MODERATE (NEGATIVE); NITRITE,URINE NEGATIVE (NEGATIVE); PROTEIN,URINE NEGATIVE (NEGATIVE); URINE SPECIFIC GRAVITY 1.028; UROBILINOGEN,URINE NEGATIVE mg/dL (<2.0)
[2017-03-30 16:54] LABS: ALANINE AMINOTRANSFERASE 70 U/L (9-52); ALBUMIN 4.4 g/dL (3.5-5.0); ALKALINE PHOSPHATASE 75 U/L (38-126); ANION GAP 17 (5-19); ASPARTATE AMINO TRANSFERASE 25 U/L (14-36); BILIRUBIN,DIRECT 0.3 mg/dL (0.0-0.4); BILIRUBIN,TOTAL 0.5 mg/dL (0.2-1.3); BLOOD UREA NITROGEN 15 mg/dL (7-20); CALCIUM 9.4 mg/dL (8.4-10.2); CARBON DIOXIDE 21 mmol/L (22-30); CHLORIDE 105 mmol/L (98-107); CREATININE RESULT 0.89 mg/dL (0.52-1.25); GLUCOSE 75 mg/dL (75-110); POTASSIUM 4.2 mmol/L (3.6-5.0); SODIUM 143.2 mmol/L (137-145)
[2017-03-30 19:16] LABS: CHLAM PCR NOT DETECTED (NOT DETECT)
--- NOTE | 2017-03-30 19:25 | ER Document Report ---
ED GI/ - General Chief Complaint: Abdominal Pain Stated Complaint: VAGINAL PAIN Time Seen by Provider: 03/30/17 15:42 Mode of Arrival: Ambulatory Information source: Patient TRAVEL OUTSIDE OF THE [place] IN LAST 30 DAYS: No - HPI Patient complains to provider of: Abdominal pain, Vomiting Timing/Duration: Gradual Quality of pain: Achy Severity at maximum: Mild Severity in ED: Mild Pain Level: 1 Location: Epigastric Associated symptoms: Dysuria, Nausea, Vomiting Exacerbated by: Denies Relieved by: Denies Notes: 03/30/17 22:06 Patient is a 31-year-old female who is well-known to this emergency department, she presents to the emergency room today complaining of cough and congestion 2 weeks, with one episode of vomiting today, and dysuria without hematuria, she complains of "lung pain", denies any fever or chills, no diarrhea, she does report some constipation, and although she denies it to me she did mention vaginal discharge when seen in the triage area - Related Data Allergies/Adverse Reactions: No Known Allergies Allergy (Verified 03/30/17 15:35) Past Medical History - General Information source: Patient - pt with c/o abdominal and vaginal pain with yellow d/c for the past several months. Also thinks she may be . - Social History Smoking Status: Current Every Day Smoker Chew tobacco use (# tins/day): No Frequency of alcohol use: Occasional Drug Abuse: None Family History: Arthritis, DM, Hyperlipidemia, Hypertension Patient has suicidal ideation: No Patient has homicidal ideation: No Pulmonary Medical History: Reports: Hx Asthma Renal/ Medical History: Denies: Hx Peritoneal Dialysis Musculoskeltal Medical History: Reports Hx Musculoskeletal Trauma Psychiatric Medical History: Reports: Hx Anxiety, Hx Attention Deficit Hyperactivity Disorder, Hx Bipolar Disorder, Hx Schizophrenia Traumatic Medical History: Reports: Hx Fractures - Left great toe Past Surgical History: Reports: Hx Section - x1 - Immunizations Hx Diphtheria, Pertussis, Tetanus Vaccination: No Review of Systems - Review of Systems Constitutional: No symptoms reported EENT: No symptoms reported Cardiovascular: No symptoms reported Respiratory: See HPI Gastrointestinal: See HPI Genitourinary: See HPI Female Genitourinary: See HPI Musculoskeletal: No symptoms reported Skin: No symptoms reported Hematologic/Lymphatic: No symptoms reported Neurological/Psychological: No symptoms reported -: Yes All other systems reviewed and negative Physical Exam - Vital signs Vitals: Temp Pulse Resp BP Pulse Ox 97.3 F 82 18 122/75 97 03/30/17 15:34 03/30/17 15:34 03/30/17 15:34 03/30/17 15:34 03/30/17 15:34 Interpretation: Normal - General General appearance: Appears well, Alert - HEENT Head: Normocephalic, Atraumatic Eyes: Normal Pupils: PERRL - Respiratory Respiratory status: No respiratory distress Chest status: Nontender Breath sounds: Normal Chest palpation: Normal - Cardiovascular Rhythm: Regular Heart sounds: Normal auscultation Murmur: No - Abdominal Inspection: Normal Distension: No distension Bowel sounds: Normal Tenderness: Nontender Organomegaly: No organomegaly - Back Back: Normal, Nontender - Extremities General upper extremity: Normal inspection, Nontender, Normal color, Normal ROM , Normal temperature General lower extremity: Normal inspection, Nontender, Normal color, Normal ROM , Normal temperature, Normal weight bearing. No: Jeancarlos's sign - Neurological Neuro grossly intact: Yes Cognition: Normal Orientation: AAOx4 [place] Coma Scale Eye Opening: Spontaneous [place] Coma Scale Verbal: Oriented [place] Coma Scale Motor: Obeys Commands [place] Coma Scale Total: 15 Speech: Normal Motor strength normal: LUE, RUE, LLE, RLE Sensory: Normal - Psychological Associated symptoms: Normal affect, Normal mood - Skin Skin Temperature: Warm Skin Moisture: Dry Skin Color: Normal Course - Re-evaluation Re-evalutation: 03/30/17 22:07 Physical exam findings are unremarkable, patient does have evidence of a urinary tract infection on urinalysis, and symptoms are otherwise consistent with likely bacterial vaginosis, labs were discussed with her at bedside which are unremarkable, patient was discharged with antibiotics and instructions for follow-up, patient acknowledges understanding and agreement with this plan - Vital Signs Vital signs: Temp Pulse Resp BP Pulse Ox 97.3 F 78 16 133/90 H 98 03/30/17 15:34 03/30/17 19:39 03/30/17 19:39 03/30/17 19:39 03/30/17 19:39 - Laboratory Result Diagrams: 03/30/17 16:10 03/30/17 16:10 Laboratory results interpreted by me: 03/30/17 03/30/17 03/30/17 16:10 16:10 16:10 WBC 11.1 H Carbon Dioxide 21 L ALT 70 H Ur Leukocyte Esterase MODERATE H Discharge - Discharge Clinical Impression: Urinary tract infection Qualifiers: Urinary tract infection type: site unspecified Hematuria presence: without hematuria Qualified Code(s): N39.0 - Urinary tract infection, site not specified Condition: Stable Disposition: HOME, SELF-CARE Instructions: Cephalexin ([facility]), Urinary Tract Infection ([facility]), Vaginosis, Bacterial ([facility]) Additional Instructions: Follow up with your primary care provider in one to 2 days. Return to the emergency room immediately if symptoms worsen or any additional concerns. Prescriptions: Cephalexin Monohydrate [Keflex 500 mg Capsule] 500 mg PO BID #20 capsule Metronidazole [Flagyl 500 mg Tablet] 500 mg PO TID #30 tablet
[2017-03-30] MEDS ORDERED: METRONIDAZOLE 500 MG TABLET PO ONE (19:26)
[2017-03-30] MEDS ORDERED: CEPHALEXIN 500 MG CAPSULE PO ONE (19:26)
[2017-03-30 19:40] VITALS: BP 133/90
== END 2017-03-30 19:39 | disposition home or self-care (01) ==
LOC: ER 15:29
DX: N39.0 Urinary tract infection, site not specified (principal); R10.9 Unspecified abdominal pain; R11.2 Nausea with vomiting, unspecified; F17.200 Nicotine dependence, unspecified, uncomplicated
CPT/HCPCS: 99283; 36415; 85025; 81025; 80053; 81001; 87491; 87591; J3490

== ENCOUNTER 2017-04-28 01:16 | Emergency (ER) | payer MEDICAID ==
--- NOTE | 2017-04-28 01:59 | ER Document Report ---
ED Extremity Problem, Lower - General Chief Complaint: Ankle Pain Stated Complaint: ANKLE PAIN Time Seen by Provider: 04/28/17 01:57 Notes: Complaint of right ankle pain, apparently twisted it at home. TRAVEL OUTSIDE OF THE [place] IN LAST 30 DAYS: No - Related Data Allergies/Adverse Reactions: No Known Allergies Allergy (Verified 03/30/17 15:35) Past Medical History - Social History Smoking Status: Current Every Day Smoker Family History: Arthritis, DM, Hyperlipidemia, Hypertension Patient has suicidal ideation: No Patient has homicidal ideation: No Pulmonary Medical History: Reports: Hx Asthma Renal/ Medical History: Denies: Hx Peritoneal Dialysis Musculoskeltal Medical History: Reports Hx Musculoskeletal Trauma Psychiatric Medical History: Reports: Hx Anxiety, Hx Attention Deficit Hyperactivity Disorder, Hx Bipolar Disorder, Hx Schizophrenia Traumatic Medical History: Reports: Hx Fractures - Left great toe Past Surgical History: Reports: Hx Section - x1 - Immunizations Hx Diphtheria, Pertussis, Tetanus Vaccination: No Review of Systems - Review of Systems Notes: Review of system unremarkable Examination of the right ankle: Shows no swelling is not erythematous she was able to plantarflex and dorsiflex brittany and invert. Examination of the foot: Very unhygienic, no obvious trauma is noted. Physical Exam - Vital signs Vitals: Temp Pulse BP Pulse Ox 97.5 F 88 124/64 91 L 04/28/17 01:24 04/28/17 01:24 04/28/17 01:24 04/28/17 01:24 Course - Vital Signs Vital signs: Temp Pulse Resp BP Pulse Ox 97.5 F 88 124/64 91 L 04/28/17 01:24 04/28/17 01:24 04/28/17 01:24 04/28/17 01:24 - Diagnostic Test Radiology results interpreted by me: 04/28/17 03:29 Radiologist reported as no fractures Discharge - Discharge Clinical Impression: Acute right ankle pain Condition: Fair Disposition: HOME, SELF-CARE Instructions: Ice & Elevation ([facility]) Prescriptions: Ibuprofen 600 mg PO DAILY PRN #30 tablet PRN Reason:
--- NOTE | 2017-04-28 03:20 | RADIOLOGY REPORT (SQ) ---
EXAM DESCRIPTION: ANKLE RIGHT AP/LATERAL CLINICAL HISTORY: injury COMPARISON: None. FINDINGS: 2 views of the right ankle. No acute fracture or dislocation. The tibial plafond and talar dome are appropriate alignment. Normal osseous mineralization. IMPRESSION: No acute fracture or dislocation identified.
[2017-04-28 03:42] VITALS: BP 110/61
== END 2017-04-28 04:03 | disposition home or self-care (01) ==
LOC: ER 01:16
DX: M25.571 Pain in right ankle and joints of right foot (principal); F17.200 Nicotine dependence, unspecified, uncomplicated
CPT/HCPCS: 99283

== ENCOUNTER 2017-08-26 14:16 | Emergency (ER) | payer MEDICAID ==
[2017-08-26 14:21] VITALS: BP 130/80
[2017-08-26 14:58] LABS: ABSOLUTE EOSINOPHILS # (AUTO) 0.2 10^3/uL (0.0-0.6); ABSOLUTE LYMPHOCYTES (AUTO) 3.1 10^3/uL (0.5-4.7); ABSOLUTE MONOCYTES (AUTO) 0.9 10^3/uL (0.1-1.4); ABSOLUTE NEUT (AUTO) 5.1 10^3/uL (1.7-8.2); BASOPHILS % (AUTO) 0.4 % (0-2); EOSINOPHILS % (AUTO) 2.3 % (0-6); HEMOGLOBIN 12.9 g/dL (12.0-15.5); LYMPHOCYTES % (AUTO) 33.2 % (13-45); MEAN CORPUSCULAR HEMOGLOBIN 28.9 pg (27.0-33.4); MEAN CORPUSCULAR HGB CONC 32.9 g/dL (32.0-36.0); MEAN CORPUSCULAR VOLUME 88 fl (80-97); MONOCYTES % (AUTO) 9.3 % (3-13); PLATELET COUNT 321 10^3/uL (150-450); RED BLOOD COUNT 4.44 10^6/uL (3.72-5.28); RED CELL DISTRIBUTION WIDTH 13.5 % (11.5-14.0); SEGMENTED NEUTROPHILS % (AUTO) 54.8 % (42-78); TOTAL CELLS COUNTED % (AUTO) 100 %; WHITE BLOOD COUNT 9.4 10^3/uL (4.0-10.5)
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
[2017-08-26 15:18] LABS: ACETAMINOPHEN < 10 ug/mL (10-30); ALANINE AMINOTRANSFERASE 41 U/L (9-52); ALBUMIN 4.4 g/dL (3.5-5.0); ALCOHOL < 10 mg/dL (NONE DETECTED); ALKALINE PHOSPHATASE 74 U/L (38-126); ANION GAP 12 (5-19); ASPARTATE AMINO TRANSFERASE 21 U/L (14-36); BILIRUBIN,DIRECT 0.3 mg/dL (0.0-0.4); BILIRUBIN,TOTAL 0.3 mg/dL (0.2-1.3); BLOOD UREA NITROGEN 12 mg/dL (7-20); CALCIUM 9.8 mg/dL (8.4-10.2); CARBON DIOXIDE 25 mmol/L (22-30); CHLORIDE 104 mmol/L (98-107); GLUCOSE 84 mg/dL (75-110); POTASSIUM 4.2 mmol/L (3.6-5.0); SALICYLATE < 1.0 mg/dL (2.0-20.0); SODIUM 140.8 mmol/L (137-145); TOTAL PROTEIN 7.3 g/dL (6.3-8.2)
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
[2017-08-26 17:30] LABS: APPEARANCE,URINE CLEAR; BILIRUBIN,URINE NEGATIVE (NEGATIVE); COLOR,URINE STRAW; GLUCOSE, URINE NEGATIVE (NEGATIVE); KETONES,URINE NEGATIVE (NEGATIVE); LEUKOCYTE ESTERASE,URINE NEGATIVE (NEGATIVE); NITRITE,URINE NEGATIVE (NEGATIVE); PROTEIN,URINE NEGATIVE (NEGATIVE); URINE SPECIFIC GRAVITY 1.005; UROBILINOGEN,URINE NEGATIVE mg/dL (<2.0)
[2017-08-26 17:45] LABS: URINE AMPHETAMINES SCREEN NEGATIVE; URINE BARBITURATES SCREEN NEGATIVE; URINE BENZODIAZEPINES SCREEN NEGATIVE; URINE COCAINE SCREEN NEGATIVE; URINE MARIJUANA (THC) SCREEN NEGATIVE; URINE METHADONE SCREEN NEGATIVE; URINE PHENCYCLIDINE SCREEN NEGATIVE
--- NOTE | 2017-08-26 21:43 | EKG REPORT ---
SEVERITY:- OTHERWISE NORMAL ECG - SINUS RHYTHM : Confirmed by: Katya Ya 26-Aug-2017 21:42:38
== END 2017-08-26 17:58 | disposition home or self-care (01) ==
LOC: ER 14:16
DX: F22 Delusional disorders (principal); J45.909 Unspecified asthma, uncomplicated
CPT/HCPCS: 36415; 80053; 80307; 81001; 84443; 84702; 84703; 85025; 93005; 93010; 99285

== ENCOUNTER 2017-08-30 05:55 | Emergency (ER) | payer MEDICAID ==
--- NOTE | 2017-08-30 06:35 | ER Document Report ---
ED General - General Chief Complaint: Psych Problem Stated Complaint: VAGINAL BLEEDING Time Seen by Provider: 08/30/17 06:21 Mode of Arrival: Ambulatory Information source: Patient Notes: 31-year-old female with history of bipolar disorder, schizophrenia presents with complaint of concern for . Patient states that she took a positive test at home. She denies any fever, chills, chest pain, shortness of breath, abdominal pain, vaginal bleeding, suicidal, homicidal ideation, visual and auditory hallucinations. Patient is alert and oriented 3. TRAVEL OUTSIDE OF THE [place] IN LAST 30 DAYS: No - HPI Onset: Just prior to arrival Quality of pain: No pain Associated symptoms: None Exacerbated by: Denies Relieved by: Denies Similar symptoms previously: Yes Recently seen / treated by doctor: Yes - Related Data Allergies/Adverse Reactions: No Known Allergies Allergy (Verified 08/26/17 14:17) Past Medical History - General Information source: Patient - Social History Smoking Status: Current Every Day Smoker Frequency of alcohol use: Occasional Drug Abuse: None Family History: Arthritis, DM, Hyperlipidemia, Hypertension Patient has suicidal ideation: No Patient has homicidal ideation: No Pulmonary Medical History: Reports: Hx Asthma Renal/ Medical History: Denies: Hx Peritoneal Dialysis Musculoskeltal Medical History: Reports Hx Musculoskeletal Trauma Psychiatric Medical History: Reports: Hx Anxiety, Hx Attention Deficit Hyperactivity Disorder, Hx Bipolar Disorder, Hx Schizophrenia Traumatic Medical History: Reports: Hx Fractures - Left great toe Past Surgical History: Reports: Hx Section - x1 - Immunizations Hx Diphtheria, Pertussis, Tetanus Vaccination: No Review of Systems - Review of Systems Notes: She denies any fever, chills, chest pain, shortness of breath, abdominal pain, vaginal bleeding, dysuria, hematuria suicidal, homicidal ideation, visual and auditory hallucinations. Physical Exam - Vital signs Vitals: Temp Pulse Resp BP Pulse Ox 97.8 F 79 15 116/76 99 08/30/17 06:08 08/30/17 06:08 08/30/17 06:08 08/30/17 06:08 08/30/17 06:08 Interpretation: Normal. No: Hypotensive, Hypertensive, Tachycardic, Hypoxic - Notes Notes: PHYSICAL EXAMINATION: GENERAL: Well-appearing, well-nourished and in no acute distress. HEAD: Atraumatic, normocephalic. EYES: Pupils equal round and reactive to light, extraocular movements intact, conjunctiva are normal. ENT: Nares patent, oropharynx clear without exudates. Moist mucous membranes. NECK: Normal range of motion, supple without lymphadenopathy LUNGS: Breath sounds clear to auscultation bilaterally and equal. No wheezes rales or rhonchi. HEART: Regular rate and rhythm without murmurs ABDOMEN: Soft, nontender, nondistended abdomen. No guarding, no rebound. No masses appreciated. Female : deferred Musculoskeletal: Normal range of motion, no pitting or edema. No cyanosis. NEUROLOGICAL: Cranial nerves grossly intact. Normal speech, normal gait. Normal sensory, motor exams PSYCH: Normal mood, normal affect. Denies suicidal, homicidal ideation. Denies visual and auditory hallucinations. SKIN: Warm, Dry, normal turgor, no rashes or lesions noted. Course - Re-evaluation Re-evalutation: Laboratory 08/30/17 06:38 Urine Color YELLOW Urine Appearance CLEAR Urine pH 6.0 Ur Specific [place] 1.019 Urine Protein NEGATIVE Urine Glucose (UA) NEGATIVE Urine Ketones NEGATIVE Urine Blood MODERATE H Urine Nitrite NEGATIVE Urine Bilirubin NEGATIVE Urine Urobilinogen 2.0 H Ur Leukocyte Esterase MODERATE H Urine WBC (Auto) 9 Urine RBC (Auto) 2 Urine Bacteria (Auto) TRACE Squamous Epi Cells Auto 2 Urine Mucus (Auto) RARE Urine Ascorbic Acid NEGATIVE Urine HCG, Qual NEGATIVE 08/30/17 06:35 31-year-old female with history of bipolar disorder, schizophrenia presents with complaint of concern for . Patient states that she took a test at home and it was positive. Vital signs stable upon arrival. Patient is alert and oriented 3. She denies any physical complaints at this time including abdominal pain and vaginal bleeding. Urine hCG will be obtained. 08/30/17 07:30 Patient reevaluated and still resting comfortably. Still without any physical complaints. I did inform her that her urine test is negative and that her urinalysis was significant for a urinary tract infection. She expresses understanding but continues to asked me if am sure that the test is accurate. Patient was given her first dose of Bactrim in the department and prescribed Bactrim for 5 days. Patient remained calm and cooperative. She is still denying SI, HI, auditory and visual hallucinations. Patient was discharged home in stable condition. - Vital Signs Vital signs: Temp Pulse Resp BP Pulse Ox 97.8 F 79 15 116/76 99 08/30/17 06:08 08/30/17 06:08 08/30/17 06:08 08/30/17 06:08 08/30/17 06:08 - Laboratory Laboratory results interpreted by me: 08/30/17 06:38 Urine Blood MODERATE H Urine Urobilinogen 2.0 H Ur Leukocyte Esterase MODERATE H Discharge - Discharge Clinical Impression: UTI (urinary tract infection) Qualifiers: Urinary tract infection type: acute cystitis Hematuria presence: with hematuria Qualified Code(s): N30.01 - Acute cystitis with hematuria Condition: Good Disposition: HOME, SELF-CARE Instructions: Urinary Tract Infection ([facility]), Trimethoprim-Sulfa ([facility]) Prescriptions: Sulfamethoxazole/Trimethoprim [Bactrim Ds Tablet] 1 each PO BID 5 Days #10 tablet Referrals: CRISS DE LEÓN MD [COMMUNITY BASED STAFF] - Follow up as needed
[2017-08-30 07:00] LABS: APPEARANCE,URINE CLEAR; BILIRUBIN,URINE NEGATIVE (NEGATIVE); COLOR,URINE YELLOW; GLUCOSE, URINE NEGATIVE (NEGATIVE); KETONES,URINE NEGATIVE (NEGATIVE); LEUKOCYTE ESTERASE,URINE MODERATE (NEGATIVE); NITRITE,URINE NEGATIVE (NEGATIVE); PROTEIN,URINE NEGATIVE (NEGATIVE); URINE SPECIFIC GRAVITY 1.019
[2017-08-30] MEDS ORDERED: SULFAMETHOXAZOLE/TRIMETHOPRIM 800-160 MG TABLET PO ONE (07:30)
[2017-08-30 07:50] VITALS: BP 115/70
== END 2017-08-30 07:45 | disposition home or self-care (01) ==
LOC: ER 05:55
DX: N30.01 Acute cystitis with hematuria (principal); J45.909 Unspecified asthma, uncomplicated; F17.200 Nicotine dependence, unspecified, uncomplicated; Z86.59 Personal history of other mental and behavioral disorders
CPT/HCPCS: 99284; 81025; 81001; J3490

== ENCOUNTER 2017-09-01 14:39 | Emergency (ER) | payer MEDICAID, OTHER ==
[2017-09-01 14:47] VITALS: BP 128/81
--- NOTE | 2017-09-01 15:04 | ER Document Report ---
ED Medical Screen (RME) - General Chief Complaint: Psych Problem Stated Complaint: PSYCH EVAL Time Seen by Provider: 09/01/17 14:55 Mode of Arrival: Medic Information source: Patient TRAVEL OUTSIDE OF THE [place] IN LAST 30 DAYS: No - HPI Patient complains to provider of: , vomiting Notes: 09/01/17 15:01 Patient is here via EMS. According to EMS, she was brought in by [facility] due to not taking her medications. When asked the patient why she is here, she states that she is and has been vomiting. In reviewing her previous records, she was here 2 days ago and was not at that time. She has a known psychiatric history and is in the emergency department often for this. She denies any homicidal or suicidal ideation to me. She knows where she is at. She knows the day. Physical exam: No acute distress. Plan: Psych order set has been ordered. An initial examination was made on the patient as part of the triage process, and it was determined a more comprehensive evaluation was necessary. Initial labs were ordered and patient was transferred to another provider in the ED who assumed care and finished evaluation and plan. - Related Data Allergies/Adverse Reactions: No Known Allergies Allergy (Verified 08/26/17 14:17) Past Medical History - Social History Frequency of alcohol use: None Drug Abuse: None Pulmonary Medical History: Reports: Hx Asthma Renal/ Medical History: Denies: Hx Peritoneal Dialysis Musculoskeltal Medical History: Reports Hx Musculoskeletal Trauma Psychiatric Medical History: Reports: Hx Anxiety, Hx Attention Deficit Hyperactivity Disorder, Hx Bipolar Disorder, Hx Schizophrenia Traumatic Medical History: Reports: Hx Fractures - Left great toe Past Surgical History: Reports: Hx Section - x1 - Immunizations Hx Diphtheria, Pertussis, Tetanus Vaccination: No Physical Exam - Vital signs Vitals: Temp Pulse Resp BP Pulse Ox 97.5 F 88 16 128/81 H 98 09/01/17 14:46 09/01/17 14:46 09/01/17 14:46 09/01/17 14:46 09/01/17 14:46 Course - Vital Signs Vital signs: Temp Pulse Resp BP Pulse Ox 97.5 F 88 16 128/81 H 98 09/01/17 14:46 09/01/17 14:46 09/01/17 14:46 09/01/17 14:46 09/01/17 14:46
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
[2017-09-01 16:53] LABS: ABSOLUTE BASOPHILS # (AUTO) 0.1 10^3/uL (0.0-0.2); ABSOLUTE EOSINOPHILS # (AUTO) 0.5 10^3/uL (0.0-0.6); ABSOLUTE LYMPHOCYTES (AUTO) 3.2 10^3/uL (0.5-4.7); ABSOLUTE MONOCYTES (AUTO) 0.7 10^3/uL (0.1-1.4); ABSOLUTE NEUT (AUTO) 5.5 10^3/uL (1.7-8.2); EOSINOPHILS % (AUTO) 4.7 % (0-6); HEMATOCRIT 36.3 % (36.0-47.0); HEMOGLOBIN 12.2 g/dL (12.0-15.5); LYMPHOCYTES % (AUTO) 32.4 % (13-45); MEAN CORPUSCULAR HEMOGLOBIN 29.5 pg (27.0-33.4); MEAN CORPUSCULAR HGB CONC 33.6 g/dL (32.0-36.0); MEAN CORPUSCULAR VOLUME 88 fl (80-97); PLATELET COUNT 325 10^3/uL (150-450); RED BLOOD COUNT 4.13 10^6/uL (3.72-5.28); RED CELL DISTRIBUTION WIDTH 13.6 % (11.5-14.0); SEGMENTED NEUTROPHILS % (AUTO) 54.9 % (42-78); TOTAL CELLS COUNTED % (AUTO) 100 %
--- NOTE | 2017-09-01 17:07 | ER Document Report ---
ED Psych Disorder / Suicide <TOM JUNIOR - Last Filed: 09/01/17 17:11> - General Mode of Arrival: Medic TRAVEL OUTSIDE OF THE [place] IN LAST 30 DAYS: No <NATY ROSAS - Last Filed: 09/02/17 19:10> - General Chief Complaint: Psych Problem Stated Complaint: PSYCH EVAL Time Seen by Provider: 09/01/17 14:55 Notes: Patient says that she just found out that she is . Says she did a home test and it was positive. Patient has been seen here on numerous occasions in the past, many of them claiming to be but not actually verified when labs have been done. Patient is not sure when she had her last menstrual cycle. Says she has had a lot of vomiting. No other symptoms or complaints provided at this time. Denies any UTI symptoms. Denies any fever. (NATY ROSAS) - Related Data Allergies/Adverse Reactions: No Known Allergies Allergy (Verified 08/26/17 14:17) Past Medical History - General Information source: Patient - Social History Smoking Status: Current Every Day Smoker Frequency of alcohol use: None Drug Abuse: None Family History: Reviewed & Not Pertinent, Arthritis, DM, Hyperlipidemia, Hypertension Patient has suicidal ideation: No Patient has homicidal ideation: No Pulmonary Medical History: Reports: Hx Asthma Musculoskeltal Medical History: Reports Hx Musculoskeletal Trauma Psychiatric Medical History: Reports: Hx Anxiety, Hx Attention Deficit Hyperactivity Disorder, Hx Bipolar Disorder, Hx Schizophrenia Traumatic Medical History: Reports: Hx Fractures - Left great toe Past Surgical History: Reports: Hx Section - x1 - Immunizations Hx Diphtheria, Pertussis, Tetanus Vaccination: No <NATY ROSAS - Last Filed: 09/02/17 19:10> Review of Systems <TOM JUNIOR - Last Filed: 09/01/17 17:11> <NATY ROSAS - Last Filed: 09/02/17 19:10> - Review of Systems Notes: REVIEW OF SYSTEMS: CONSTITUTIONAL : Denies fever. EENT: Denies eye, ear, nose or mouth or throat pain or other symptoms. CARDIOVASCULAR: Denies chest pain. RESPIRATORY: Denies cough, chest congestion, or shortness of breath. GASTROINTESTINAL: Has had some vomiting. Denies abdominal pain. No diarrhea. GENITOURINARY: Denies difficulty or painful urinating, urinary frequency, blood in urine. Denies vaginal bleeding. MUSCULOSKELETAL: Denies back or neck pain. Denies joint pain or swelling. SKIN: Denies rash or skin lesions. NEUROLOGICAL: Denies LOC or altered mental status. Denies headache. Denies sensory loss or motor deficits. ALL OTHER SYSTEMS REVIEWED AND NEGATIVE. (NATY ROSAS) Physical Exam <TOM JUNIOR - Last Filed: 09/01/17 17:11> - Vital signs Interpretation: Normal <NATY ROSAS - Last Filed: 09/02/17 19:10> - Vital signs Vitals: Temp Pulse Resp BP Pulse Ox 97.5 F 88 16 128/81 H 98 09/01/17 14:46 09/01/17 14:46 09/01/17 14:46 09/01/17 14:46 09/01/17 14:46 - Notes Notes: PHYSICAL EXAMINATION: GENERAL: Well-appearing, in no acute distress. HEAD: Atraumatic, normocephalic. EYES: Pupils equal round and reactive to light, extraocular movements intact. ENT: oropharynx clear without exudates. Moist mucous membranes. NECK: Normal range of motion, supple. LUNGS: Breath sounds clear and equal bilaterally. HEART: Regular rate and rhythm without murmurs. ABDOMEN: Soft, nontender. No guarding or rebound. No masses. BACK: No tenderness throughout entire back. EXTREMITIES: Normal range of motion without pain. NEUROLOGICAL: Normal speech, normal gait. Normal sensory, motor, and reflex exams. Awake, alert, and oriented x3. Cranial nerves normal. PSYCH: Normal mood, normal affect. SKIN: Warm, dry, no rashes. (NATY ROSAS) Course - Laboratory Result Diagrams: 09/01/17 16:35 09/01/17 16:35 <TOM JUNIOR - Last Filed: 09/01/17 17:11> - Laboratory Result Diagrams: 09/01/17 16:35 09/01/17 16:35 <NATY ROSAS - Last Filed: 09/02/17 19:10> - Vital Signs Vital signs: Temp Pulse Resp BP Pulse Ox 97.5 F 88 16 128/81 H 98 09/01/17 14:46 09/01/17 14:46 09/01/17 14:46 09/01/17 14:46 09/01/17 14:46 - Laboratory Laboratory results interpreted by me: 09/01/17 09/01/17 16:15 16:35 Urine Blood SMALL H Ur Leukocyte Esterase SMALL H Salicylates < 1.0 L Acetaminophen < 10 L Discharge <MARIBELL JUNIORSHELBY - Last Filed: 09/01/17 17:11> <NATY ROSAS - Last Filed: 09/02/17 19:10> - Discharge Clinical Impression: Delusional disorder, somatic type, multiple episodes, 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 Social, marital, or work problems can result from the delusional believes of delusional disorder. Individuals with delusional disorder may be able to factually describe that mother's view there believes as a rational but are unable to accept this themselves (I. E., There may be "factual insight" but no true insight (. Many individuals develop irritable or dysphoric mood, which can usually be understood as a reaction to their delusional beliefs. Anger and violent behavior can occur with jealous, persecutory, and erotomanic type. Legal difficulties can occur, particularly in jealous and somatic types. Functional impairment is usually more circumscribed than that seen with other psychotic disorders, although in some cases, the impairment may be substantial and include poor occupational functioning and social isolation. Poor psychosocial functioning is present, delusional beliefs themselves often play a significant role. Common characteristic of individuals with delusional disorder is apparent normality their behavior and appearance with her delusion ideas are not being discussed or acted on. Follow up care: You presented to the emergency department due to a complaint of and wanting food/ a place to sleep. Based on the mental health assessment it was determined that your symptoms can be managed in an outpatient setting. We recommend you follow up with [facility] within 3-5 days. We discussed the stresses of not being able to pay rent and other financial stresses , mental health contacted [facility] so they could assist you with case management out in the community. Their phone number is [phone] if you need any help until they contact you, or to check on the status. Resources were provided for homelessness, if you are going to the local senior care they have a curfew, please be mindful of their policies. Referrals: [facility] [Provider Group] - Follow up in 3-5 days
[2017-09-01 17:16] LABS: ALANINE AMINOTRANSFERASE 30 U/L (9-52); ALBUMIN 4.1 g/dL (3.5-5.0); ALKALINE PHOSPHATASE 69 U/L (38-126); ANION GAP 10 (5-19); ASPARTATE AMINO TRANSFERASE 20 U/L (14-36); BILIRUBIN,DIRECT 0.2 mg/dL (0.0-0.4); BILIRUBIN,TOTAL 0.5 mg/dL (0.2-1.3); BLOOD UREA NITROGEN 12 mg/dL (7-20); CALCIUM 9.6 mg/dL (8.4-10.2); CARBON DIOXIDE 28 mmol/L (22-30); CHLORIDE 104 mmol/L (98-107); GLUCOSE 87 mg/dL (75-110); POTASSIUM 4.4 mmol/L (3.6-5.0); SODIUM 142.4 mmol/L (137-145)
[2017-09-01 17:17] LABS: ACETAMINOPHEN < 10 ug/mL (10-30); ALCOHOL < 10 mg/dL (NONE DETECTED); SALICYLATE < 1.0 mg/dL (2.0-20.0)
[2017-09-01 18:00] LABS: APPEARANCE,URINE CLEAR; BILIRUBIN,URINE NEGATIVE (NEGATIVE); COLOR,URINE YELLOW; GLUCOSE, URINE NEGATIVE (NEGATIVE); KETONES,URINE NEGATIVE (NEGATIVE); LEUKOCYTE ESTERASE,URINE SMALL (NEGATIVE); NITRITE,URINE NEGATIVE (NEGATIVE); PROTEIN,URINE NEGATIVE (NEGATIVE); URINE SPECIFIC GRAVITY 1.015; UROBILINOGEN,URINE NEGATIVE mg/dL (<2.0)
[2017-09-01 18:05] LABS: URINE AMPHETAMINES SCREEN NEGATIVE; URINE BARBITURATES SCREEN NEGATIVE; URINE BENZODIAZEPINES SCREEN NEGATIVE; URINE COCAINE SCREEN UNCONFIRMED POSITIVE; URINE MARIJUANA (THC) SCREEN NEGATIVE; URINE METHADONE SCREEN NEGATIVE; URINE PHENCYCLIDINE SCREEN NEGATIVE
--- NOTE | 2017-09-01 19:43 | EKG REPORT ---
SEVERITY:- OTHERWISE NORMAL ECG - SINUS ARRHYTHMIA, RATE 47-74 : Confirmed by: Joe Jonhson MD 01-Sep-2017 19:42:22
== END 2017-09-01 17:29 | disposition home or self-care (01) ==
LOC: ER 14:39
DX: F22 Delusional disorders (principal); Z59.0 Homelessness; J45.909 Unspecified asthma, uncomplicated; F17.200 Nicotine dependence, unspecified, uncomplicated; R11.10 Vomiting, unspecified
CPT/HCPCS: 36415; 80053; 80307; 81001; 84703; 85025; 93005; 93010; 99285

== ENCOUNTER 2017-09-04 06:14 | Emergency (ER) | payer MEDICAID ==
--- NOTE | 2017-09-04 06:49 | ER Document Report ---
ED Psych Disorder / Suicide <RAJAN LUEVANO - Last Filed: 09/04/17 08:42> - General TRAVEL OUTSIDE OF THE [place] IN LAST 30 DAYS: No - HPI Patient complains to provider of: Bizarre behavior, Hallucinating. No: Aggression, Agitated, Homicidal ideation, Homicidal plan, Homicidal attempt, Overdose, Suicidal ideation, Suicidal plan, Suicidal attempt, Self injury, Other Onset: Other Onset was: Gradual Quality of pain: denies: No pain, Achy, Burning, Cramping, Dull, Fullness, Pressure, Sharp, Stabbing, Throbbing, Other Severity: Moderate Pain Level: 3 Suicide Risk Factors: No: Age <19, Age >65, Bipolar, Chronic illness, Depressed , Frightened friends/family, Hallucinations, Lack of social support, Left letter of attempt, Lethal weapons in home, Loss of rational thought, Male, No spouse, Organized plan, Panic disorder, Prior suicide attempt, Schizophrenia, Substance abuse, Other mental health dx., Other Situational problems related to: denies: Daughter, Legal problems, Lost job, Parent, Recent , Recent divorce, School, Sexual orientation, Significant other, Son, Spouse, Work, Other Suicide Attempt Method: denies: Drowning, Hanging, Motor Vehicle, Overdose, Shooting, Stabbing/Cutting, Train, Other Overdose of: No: Acetominophen, Alcohol, Anticholinergic, Anti-depressants, Benzodiazepine, Salicylate, Tricyclic Antidepressant, Other Injury to: No: Generalized, Abdomen, Ankle, Back, Breast, Buttocks, Chest, Elbow , Epigastric, Flank, Face, Finger, Foot, Hand, Head, Hip, Knee, Leg, Lower extremity, Mouth, Neck, Pelvic, Penis, Perineum, Rectum, Shoulder, Testicle, Thigh, Throat, Trunk, Upper extremity, Vagina, Wrist Associated symptoms: No: Normal affect, Normal mood, Aggressive, Agitated, Angry , Anxious, Auditory hallucinations, Circumferential speech, Combative, Confused , Decreased appetite, Depressed, Excessive sleeping, Flat affect, Flight of ideas, Increased appetite, Irritable, Labile, Manic, Paranoid, Psychomotor agitation, Psychomotor depression, Christianity preoccupation, Restlessness, Tactile hallucinations, Tangential speech, Tearful, Unable to sleep, Uncooperative, Visual hallucinations, Other <TAMARA JOYNER - Last Filed: 09/04/17 09:10> - General Chief Complaint: Psych Problem Stated Complaint: PSYCH PROBLEM Time Seen by Provider: 09/04/17 06:48 Notes: History of present illness-31 years old female with schizoaffective bipolar disorder with hallucination. Drug abuse, thought she delivered 2 babies the parking lot and the water broke after that, therefore she would like to be checked in. She comes with similar complaints multiple times. A week ago she was released from residential. She kept on saying the same thing to me. No further history was available. REVIEW OF SYSTEMS: CONSTITUTIONAL : Denies fever, chills, or sweats. Denies recent illness. EENT: Denies eye, ear, throat, or mouth pain or symptoms. Denies nasal or sinus congestion or discharge. Denies throat, tongue, or mouth swelling or difficulty swallowing. CARDIOVASCULAR: Denies chest pain. Denies palpitations or racing or irregular heart beat. Denies ankle edema. RESPIRATORY: Denies cough, cold, or chest congestion. Denies shortness of breath, difficulty breathing, or wheezing. GASTROINTESTINAL: Denies abdominal pain or distention. Denies nausea, vomiting , or diarrhea. Denies blood in vomitus, stools, or per rectum. Denies black, tarry stools. Denies constipation. GENITOURINARY: Denies difficulty urinating, painful urination, burning, frequency, blood in urine, or discharge. FEMALE GENITOURINARY: Denies vaginal bleeding, heavy or abnormal periods, irregular periods. Denies vaginal discharge or odor. MUSCULOSKELETAL: Denies back or neck pain or stiffness. Denies joint pain or swelling. SKIN: Denies rash, lesions or sores. HEMATOLOGIC : Denies easy bruising or bleeding. LYMPHATIC: Denies swollen, enlarged glands. NEUROLOGICAL: Denies confusion or altered mental status. Denies passing out or loss of consciousness. Denies dizziness or lightheadedness. Denies headache. Denies weakness or paralysis or loss of use of either side. Denies problems with gait or speech. Denies sensory loss, numbness, or tingling. Denies seizures. PSYCHIATRIC: As per history of complain ALL OTHER SYSTEMS REVIEWED AND NEGATIVE. PHYSICAL EXAMINATION: GENERAL: , well-nourished and in no acute distress. HEAD: Atraumatic, normocephalic. EYES: Pupils equal round and reactive to light, extraocular movements intact, conjunctiva are normal. ENT: Nares patent, oropharynx clear without exudates. Moist mucous membranes. NECK: Normal range of motion, supple without lymphadenopathy LUNGS: Breath sounds clear to auscultation bilaterally and equal. No wheezes rales or rhonchi. HEART: Regular rate and rhythm without murmurs ABDOMEN: Soft, nontender, nondistended abdomen. No guarding, no rebound. No masses appreciated. Female : deferred Musculoskeletal: Normal range of motion, no pitting or edema. No cyanosis. NEUROLOGICAL: Cranial nerves grossly intact. Normal speech, normal gait. Normal sensory, motor exams PSYCH: Possible auditory hallucination, delusional. SKIN: Warm, Dry, normal turgor, no rashes or lesions noted. Dictation was performed using [employer] recognition software (TAMARA JOYNER) - Related Data Allergies/Adverse Reactions: No Known Allergies Allergy (Verified 09/04/17 08:05) Past Medical History - General Information source: Patient - Social History Smoking Status: Current Every Day Smoker Chew tobacco use (# tins/day): No Frequency of alcohol use: None Drug Abuse: None Family History: Reviewed & Not Pertinent, Arthritis, DM, Hyperlipidemia, Hypertension Patient has suicidal ideation: No Patient has homicidal ideation: No Pulmonary Medical History: Reports: Hx Asthma Renal/ Medical History: Denies: Hx Peritoneal Dialysis Musculoskeltal Medical History: Reports Hx Musculoskeletal Trauma Psychiatric Medical History: Reports: Hx Anxiety, Hx Attention Deficit Hyperactivity Disorder, Hx Bipolar Disorder, Hx Schizophrenia Traumatic Medical History: Reports: Hx Fractures - Left great toe Past Surgical History: Reports: Hx Section - x1 - Immunizations Hx Diphtheria, Pertussis, Tetanus Vaccination: No <TAMARA JOYNER - Last Filed: 09/04/17 09:10> Review of Systems - Review of Systems Constitutional: denies: No symptoms reported, See HPI, Chills, Diaphoresis, Fever, Malaise, Weakness, Other, Weight gain, Weight loss, Recent illness EENT: denies: No symptoms reported, See HPI, Eye pain, Eye discharge, Blurred vision, Tearing, Double vision, Ear pain, Ear discharge, Nose pain, Nose congestion, Nose discharge, Sinus pressure, Sinus discharge, Throat pain, Difficulty swallowing, Throat swelling, Mouth pain, Mouth swelling, Dental problem, Vertigo, Other Cardiovascular: denies: No symptoms reported, See HPI, Chest pain, Palpitations , Heart racing, Orthopnea, Dyspnea, Syncope, Dizziness, Lightheaded, Edema, Other, Paroxysmal Nocturnal Dysp Respiratory: denies: No symptoms reported, See HPI, Cough, Hurts to breathe, Hemoptysis, Short of breath, Sputum, Stridor, Wheezing, Other Gastrointestinal: denies: No symptoms reported, See HPI, Abdomen distended, Abdominal pain, Diarrhea, Nausea, Vomiting, Constipation, Blood streaked bowels , Poor appetite, Poor fluid intake, Blood in vomit, Black stools, Rectal bleeding, Last bowel movement, Fecal incontinence, Other Genitourinary: denies: No symptoms reported, See HPI, Burning, Dysuria, Discharge, Frequency, Flank pain, Hematuria, Incontinence, Pain, Urgency, Retention, Other Female Genitourinary: denies: No symptoms reported, See HPI, Last menstrual period, , Post menopausal, Heavy/abnormal periods, Irregular period, Vaginal bleeding, Vaginal discharge, Vaginal odor, Painful intercourse, Other Musculoskeletal: denies: No symptoms reported, See HPI, Back pain, Gout, Joint pain, Joint swelling, Muscle pain, Muscle stiffness, Neck pain, Deformity, Leg swelling, Ankle swelling, Other Neurological/Psychological: See HPI <TAMARA JOYNER - Last Filed: 09/04/17 09:10> - Vital signs Vitals: Temp Pulse Resp BP Pulse Ox 97.5 F 86 17 127/81 H 98 09/04/17 06:20 09/04/17 06:20 09/04/17 06:20 09/04/17 06:20 09/04/17 06:20 Course - Laboratory Result Diagrams: 09/04/17 06:55 09/04/17 06:55 <RAJAN LUEVANO - Last Filed: 09/04/17 08:42> - Laboratory Result Diagrams: 09/04/17 06:55 09/04/17 06:55 <TAMARA JOYNER - Last Filed: 09/04/17 09:10> - Re-evaluation Re-evalutation: 09/04/17 09:09 She was evaluated by psychological department. And recommended discharge. ( TAMARA JOYNER) - Vital Signs Vital signs: Temp Pulse Resp BP Pulse Ox 97.5 F 86 17 127/81 H 98 09/04/17 06:20 09/04/17 06:20 09/04/17 06:20 09/04/17 06:20 09/04/17 06:20 - Laboratory Laboratory results interpreted by me: 09/04/17 09/04/17 09/04/17 06:16 06:55 06:55 Hct 35.9 L Ur Leukocyte Esterase LARGE H Salicylates < 1.0 L Acetaminophen < 10 L Discharge <RAJAN LUEVANO - Last Filed: 09/04/17 08:42> <KEYONNA JOYNERROGERS - Last Filed: 09/04/17 09:10> - Discharge Clinical Impression: Schizoaffective disorder, bipolar type, Cocaine abuse Condition: Stable Disposition: HOME, SELF-CARE Additional Instructions: Hallucinations You seem to be having hallucinations. Hallucinations are seeing, hearing, or feeling things that don't exist. These symptoms commonly occur with drug abuse and schizophrenia. Drugs like PCP, LSD, MDMA, peyote, and "psychedelic mushrooms" can cause frightening hallucinations. Users of methamphetamine or crack cocaine often see and feel bugs crawling on their skin. Patients with schizophrenia may hear voices that no one else can hear. The delusions of schizophrenia often involve conspiracies or relationships that are not real. When symptoms are due to drug abuse, the mental state usually improves as the drug wears off. Someone you trust should be with you until you are better, to protect you and calm your fears. Tranquilizer medicine is helpful at controlling hallucinations, anxiety, and deluded thoughts. Get a proper diet and enough sleep. Most patients do very well when they get proper medical treatment and social support. You should return at once if your symptoms get worse, if you are having suicidal thoughts or thoughts about hurting others, or if you feel that you are in danger. A referral to [facility] has been submitted on 09/01/2017 for reestablishing your ACT team for continued mental health services. You have recommended to follow- up with [facility] for substance abuse treatment. AT ANY TIME, IF YOUR SYMPTOMS CHANGE SIGNIFICANTLY OR WORSEN OR YOU DEVELOP NEW SYMPTOMS, RETURN TO THE EMERGENCY DEPARTMENT IMMEDIATELY FOR RE-EVALUATION. Referrals: [facility] [Outside] - Follow up in 3-5 days [facility] [Outside] - Follow up as needed
[2017-09-04 06:51] LABS: APPEARANCE,URINE SLIGHTLY-CLOUDY; BILIRUBIN,URINE NEGATIVE (NEGATIVE); COLOR,URINE YELLOW; GLUCOSE, URINE NEGATIVE (NEGATIVE); KETONES,URINE NEGATIVE (NEGATIVE); LEUKOCYTE ESTERASE,URINE LARGE (NEGATIVE); NITRITE,URINE NEGATIVE (NEGATIVE); PROTEIN,URINE NEGATIVE (NEGATIVE); URINE SPECIFIC GRAVITY 1.004; UROBILINOGEN,URINE NEGATIVE mg/dL (<2.0)
[2017-09-04 07:04] LABS: ABSOLUTE BASOPHILS # (AUTO) 0.1 10^3/uL (0.0-0.2); ABSOLUTE EOSINOPHILS # (AUTO) 0.4 10^3/uL (0.0-0.6); ABSOLUTE LYMPHOCYTES (AUTO) 3.5 10^3/uL (0.5-4.7); ABSOLUTE MONOCYTES (AUTO) 0.6 10^3/uL (0.1-1.4); BASOPHILS % (AUTO) 0.6 % (0-2); EOSINOPHILS % (AUTO) 4.2 % (0-6); HEMATOCRIT 35.9 % (36.0-47.0); LYMPHOCYTES % (AUTO) 36.7 % (13-45); MEAN CORPUSCULAR HEMOGLOBIN 29.2 pg (27.0-33.4); MEAN CORPUSCULAR HGB CONC 33.4 g/dL (32.0-36.0); MEAN CORPUSCULAR VOLUME 87 fl (80-97); MONOCYTES % (AUTO) 6.7 % (3-13); PLATELET COUNT 318 10^3/uL (150-450); RED CELL DISTRIBUTION WIDTH 13.6 % (11.5-14.0); SEGMENTED NEUTROPHILS % (AUTO) 51.8 % (42-78); TOTAL CELLS COUNTED % (AUTO) 100 %; WHITE BLOOD COUNT 9.6 10^3/uL (4.0-10.5)
[2017-09-04 07:05] LABS: URINE AMPHETAMINES SCREEN NEGATIVE; URINE BARBITURATES SCREEN NEGATIVE; URINE BENZODIAZEPINES SCREEN NEGATIVE; URINE COCAINE SCREEN NEGATIVE; URINE MARIJUANA (THC) SCREEN NEGATIVE; URINE METHADONE SCREEN NEGATIVE; URINE PHENCYCLIDINE SCREEN NEGATIVE
[2017-09-04 07:27] LABS: ALANINE AMINOTRANSFERASE 35 U/L (9-52); ALBUMIN 3.9 g/dL (3.5-5.0); ALKALINE PHOSPHATASE 63 U/L (38-126); ANION GAP 11 (5-19); ASPARTATE AMINO TRANSFERASE 22 U/L (14-36); BILIRUBIN,DIRECT 0.2 mg/dL (0.0-0.4); BILIRUBIN,TOTAL 0.4 mg/dL (0.2-1.3); BLOOD UREA NITROGEN 7 mg/dL (7-20); CALCIUM 9.5 mg/dL (8.4-10.2); CARBON DIOXIDE 27 mmol/L (22-30); CHLORIDE 105 mmol/L (98-107); GLUCOSE 99 mg/dL (75-110); POTASSIUM 4.1 mmol/L (3.6-5.0); SODIUM 143.4 mmol/L (137-145); TOTAL PROTEIN 6.7 g/dL (6.3-8.2)
[2017-09-04 07:29] LABS: ACETAMINOPHEN < 10 ug/mL (10-30); ALCOHOL < 10 mg/dL (NONE DETECTED); SALICYLATE < 1.0 mg/dL (2.0-20.0)
--- NOTE | 2017-09-04 07:58 | EKG REPORT ---
SEVERITY:- ABNORMAL ECG - SINUS RHYTHM INFERIOR Q WAVES, PROBABLY NORMAL VARIATION PROLONGED QT INTERVAL : Confirmed by: Joe Johnson MD 04-Sep-2017 07:57:52
--- NOTE | 2017-09-04 08:42 | PSYCHOLOGICAL NOTE ---
Psych Note - Psych Note Psych Note: Reason for consult: Delusions Eval : 0700 Contact Permissions : Patient's mother Jordyn Jane phone #[phone] pt brought in by EMS d/t pt found in parking lot talking to herself. pt states that she is having stomach cramps. pt has a hx of psych. Patient disclosed she came to [facility] because her water broke in the parking lot. She continued to state that she knows she is . She confirms she was told by [facility] staff that she was not but "I know I am." Clinician asked if the medical staff says she isn't, but she knows they are wrong and that she is, but does she need the medical staff to believe she is. Patient stated because I just want them to believe. When asked again why it was so important for the staff to believe if she believes patient became quiet then mumbled something about shoes. Patient was recently released from snf and confirm she has a housing but states "I do not have any food." Patient would like resources on food riggs in the local area. Patient disclosed she is only used crack once send being released from snf. When asked about taking her medications she stated "I do not take any medications my ." Chart review conducted manager residential contacted [facility] [employer] to provide a referral for care coordination/community case management assistance on 09/01/2017. Collateral obtained 9 days ago (08/26/2017) Collateral Information: Patient's mother Jordyn Vidal [phone] Patient's mother reports should not was in snf for 4 months for stealing. Patient reports she got out of snf . Patient's mother reports she did not want patient living with her in her home because she has done everything she could. Patient's mother reports patient will not take her medications. Patient's mother reports she is her legal guardian. Patient's mother reports she works and is very busy and cannot look out for patient. Patient's mother reports she was told by A to take her to the emergency room under IVC so that we could look for long-term placement for her. Patient reports that since she has been out of snf she has been taking off with strangers and using drugs. Patient's mother reports patient will roam the neighborhood or end up using drugs. Patient's mother reports she believes patient is a "nuisance to society " and should be locked up long-term. Patient's mother stated "well you want her in your neighborhood you go ahead and discharge her". Patient's mother reports that patient's grandmother does not want her living there. Patient's mother reports she wants patient to go somewhere for several years.Patient's mother reports she would rather patient stay in the hospital for a while than be homeless as patient does not have a job. Patient is alert and orientated to person, place, time. Mood is euthymic with congruent affect. Patient denies suicidal and homicidal ideations. Patient suffers from chronic persistent delusions; she presents at her baseline functioning and is not a danger to herself or others. Eye contact was poor ( She was trying to sleep). Conversational speech was within normal rate, tone and prosody. Intellectual abilities appear to be with a low average range. Attention and concentration are fair. Insight, judgment, impulse control are historically poor due to her substance abuse. Patient is noncompliant and continues to use crack cocaine; no medication recommendations at this time. 295.70 (F25.0) Schizoaffective Disorder, Bipolar type per history 292.9 (F14.99) Unspecified cocaine disorder Impression\\plan: Patient is cleared from acute psychiatric services. This patient is well known to this clinician and department. Patient has not been engaged with the ACT team and has not been taking her prescribed medications for her mental health. She disclosed continued use of Crack cocaine. Patient presents at her baseline functioning, which includes chronic/fixated delusions ( of , sexual assault, etc) and therefore are not acute/ criteria for inpatient psychiatric hospital stay. Additionally, these delusions do not cause harm to herself or others. A referral for community management assistance through [employer] was submitted 09/01/2017 for this patient.
[2017-09-04 09:20] VITALS: BP 130/64
== END 2017-09-04 10:15 | disposition home or self-care (01) ==
LOC: ER 06:14
DX: F25.0 Schizoaffective disorder, bipolar type (principal); F14.10 Cocaine abuse, uncomplicated; F17.200 Nicotine dependence, unspecified, uncomplicated
CPT/HCPCS: 36415; 80053; 80307; 81001; 84703; 85025; 93005; 93010; 99285

== ENCOUNTER 2017-09-04 18:58 | Emergency (ER) | payer OTHER, MEDICAID ==
[2017-09-04 19:02] VITALS: BP 115/80
== END 2017-09-04 22:00 | disposition left against medical advice (07) ==
LOC: ER 18:58
DX: Z53.21 Procedure and treatment not carried out due to patient leaving prior to being seen by health care provider (principal)

== ENCOUNTER 2017-09-07 05:22 | Emergency (ER) | payer OTHER, MEDICAID | END 2017-09-07 06:58 | disposition left against medical advice (07) | LOC: ER 05:22 | DX: Z53.21 Procedure and treatment not carried out due to patient leaving prior to being seen by health care provider (principal); N93.9 Abnormal uterine and vaginal bleeding, unspecified ==

== ENCOUNTER 2017-09-08 14:05 | Emergency (ER) | payer MEDICAID, OTHER ==
--- NOTE | 2017-09-08 14:46 | ER Document Report ---
ED Medical Screen (RME) - General Chief Complaint: Psych Problem Stated Complaint: PSYCH EVAL Time Seen by Provider: 09/08/17 14:43 Notes: Patient presents with word salad and nonsensical sentences. She perseverates on the idea of however the sentences involving this subject are not coherent sentences. The A worker informs me that a bed is been procured at [place] [address] and that medical clearance is needed. TRAVEL OUTSIDE OF THE [place] IN LAST 30 DAYS: No - Related Data Allergies/Adverse Reactions: No Known Allergies Allergy (Verified 09/08/17 14:38) Past Medical History - Social History Chew tobacco use (# tins/day): No Frequency of alcohol use: None Drug Abuse: None Pulmonary Medical History: Reports: Hx Asthma Renal/ Medical History: Denies: Hx Peritoneal Dialysis Musculoskeltal Medical History: Reports Hx Musculoskeletal Trauma Psychiatric Medical History: Reports: Hx Anxiety, Hx Attention Deficit Hyperactivity Disorder, Hx Bipolar Disorder, Hx Schizophrenia Traumatic Medical History: Reports: Hx Fractures - Left great toe Past Surgical History: Reports: Hx Section - x1 - Immunizations Hx Diphtheria, Pertussis, Tetanus Vaccination: No
[2017-09-08 15:51] LABS: ABSOLUTE BASOPHILS # (AUTO) 0.1 10^3/uL (0.0-0.2); ABSOLUTE EOSINOPHILS # (AUTO) 0.5 10^3/uL (0.0-0.6); ABSOLUTE LYMPHOCYTES (AUTO) 3.5 10^3/uL (0.5-4.7); ABSOLUTE MONOCYTES (AUTO) 0.6 10^3/uL (0.1-1.4); ABSOLUTE NEUT (AUTO) 7.8 10^3/uL (1.7-8.2); BASOPHILS % (AUTO) 0.4 % (0-2); EOSINOPHILS % (AUTO) 3.8 % (0-6); HEMATOCRIT 38.7 % (36.0-47.0); HEMOGLOBIN 12.7 g/dL (12.0-15.5); LYMPHOCYTES % (AUTO) 28.3 % (13-45); MEAN CORPUSCULAR HGB CONC 32.7 g/dL (32.0-36.0); MEAN CORPUSCULAR VOLUME 89 fl (80-97); MONOCYTES % (AUTO) 4.7 % (3-13); PLATELET COUNT 375 10^3/uL (150-450); RED BLOOD COUNT 4.37 10^6/uL (3.72-5.28); RED CELL DISTRIBUTION WIDTH 13.8 % (11.5-14.0); SEGMENTED NEUTROPHILS % (AUTO) 62.8 % (42-78); TOTAL CELLS COUNTED % (AUTO) 100 %; WHITE BLOOD COUNT 12.4 10^3/uL (4.0-10.5)
[2017-09-08 16:08] LABS: APPEARANCE,URINE CLEAR; BILIRUBIN,URINE NEGATIVE (NEGATIVE); COLOR,URINE STRAW; GLUCOSE, URINE NEGATIVE (NEGATIVE); KETONES,URINE NEGATIVE (NEGATIVE); LEUKOCYTE ESTERASE,URINE NEGATIVE (NEGATIVE); NITRITE,URINE NEGATIVE (NEGATIVE); PROTEIN,URINE NEGATIVE (NEGATIVE); URINE SPECIFIC GRAVITY 1.004; UROBILINOGEN,URINE NEGATIVE mg/dL (<2.0)
[2017-09-08 16:10] LABS: ALANINE AMINOTRANSFERASE 71 U/L (9-52); ALBUMIN 4.3 g/dL (3.5-5.0); ALKALINE PHOSPHATASE 70 U/L (38-126); ANION GAP 14 (5-19); ASPARTATE AMINO TRANSFERASE 38 U/L (14-36); BILIRUBIN,DIRECT 0.2 mg/dL (0.0-0.4); BILIRUBIN,TOTAL 0.5 mg/dL (0.2-1.3); BLOOD UREA NITROGEN 6 mg/dL (7-20); CALCIUM 9.6 mg/dL (8.4-10.2); CARBON DIOXIDE 28 mmol/L (22-30); CHLORIDE 103 mmol/L (98-107); GLUCOSE 113 mg/dL (75-110); POTASSIUM 3.7 mmol/L (3.6-5.0); SODIUM 144.6 mmol/L (137-145); TOTAL PROTEIN 7.4 g/dL (6.3-8.2)
[2017-09-08 16:11] LABS: ACETAMINOPHEN < 10 ug/mL (10-30); ALCOHOL < 10 mg/dL (NONE DETECTED); SALICYLATE < 1.0 mg/dL (2.0-20.0)
[2017-09-08 16:25] LABS: URINE AMPHETAMINES SCREEN NEGATIVE; URINE BARBITURATES SCREEN NEGATIVE; URINE BENZODIAZEPINES SCREEN NEGATIVE; URINE COCAINE SCREEN NEGATIVE; URINE MARIJUANA (THC) SCREEN NEGATIVE; URINE METHADONE SCREEN NEGATIVE; URINE PHENCYCLIDINE SCREEN NEGATIVE
[2017-09-08 16:48] VITALS: BP 118/89
--- NOTE | 2017-09-08 17:12 | ER Document Report ---
ED General - General Chief Complaint: Psych Problem Stated Complaint: PSYCH EVAL Time Seen by Provider: 09/08/17 14:43 TRAVEL OUTSIDE OF THE [place] IN LAST 30 DAYS: No - HPI Patient complains to provider of: Medical clearance Notes: Patient coming in with a [facility] provider for medical clearance patient has been evaluated for underlying psychiatric perseveration of being . Patient has current placement at [facility] however is requiring medical clearance. Upon my evaluation patient has no issues she is concerned that she is . Patient has no other complaints. Denies fevers chills nausea vomiting diarrhea denies any abdominal pain chest pain patient is concerned about multiple bug bites on her upper extremities. - Related Data Allergies/Adverse Reactions: No Known Allergies Allergy (Verified 09/08/17 14:38) Past Medical History - Social History Smoking Status: Never Smoker Chew tobacco use (# tins/day): No Frequency of alcohol use: None Drug Abuse: None Family History: Reviewed & Not Pertinent, Arthritis, DM, Hyperlipidemia, Hypertension Patient has suicidal ideation: No Patient has homicidal ideation: No Pulmonary Medical History: Reports: Hx Asthma Renal/ Medical History: Denies: Hx Peritoneal Dialysis Musculoskeltal Medical History: Reports Hx Musculoskeletal Trauma Psychiatric Medical History: Reports: Hx Anxiety, Hx Attention Deficit Hyperactivity Disorder, Hx Bipolar Disorder, Hx Schizophrenia Traumatic Medical History: Reports: Hx Fractures - Left great toe Past Surgical History: Reports: Hx Section - x1 - Immunizations Hx Diphtheria, Pertussis, Tetanus Vaccination: No Review of Systems - Review of Systems Constitutional: No symptoms reported EENT: No symptoms reported Cardiovascular: No symptoms reported Respiratory: No symptoms reported Gastrointestinal: No symptoms reported Genitourinary: No symptoms reported Female Genitourinary: No symptoms reported Musculoskeletal: No symptoms reported Skin: No symptoms reported Hematologic/Lymphatic: Other - Bug bites Neurological/Psychological: Other - Medical clearance -: Yes All other systems reviewed and negative Physical Exam - Vital signs Vitals: Temp Pulse Resp BP Pulse Ox 97.5 F 83 20 118/89 H 99 09/08/17 16:41 09/08/17 16:41 09/08/17 16:41 09/08/17 16:41 09/08/17 16:41 Interpretation: Normal - General General appearance: Appears well, Alert - HEENT Head: Normocephalic, Atraumatic Eyes: Normal Pupils: PERRL - Respiratory Respiratory status: No respiratory distress Chest status: Nontender Breath sounds: Normal Chest palpation: Normal - Cardiovascular Rhythm: Regular Heart sounds: Normal auscultation Murmur: No - Abdominal Inspection: Normal Distension: No distension Bowel sounds: Normal Tenderness: Nontender Organomegaly: No organomegaly - Back Back: Normal, Nontender - Extremities General upper extremity: Nontender, Normal color, Normal ROM, Normal temperature. No: Normal inspection - Multiple small insect bites on the upper extremities nonspecific no signs of underlying infection or cellulitis. General lower extremity: Normal inspection, Nontender, Normal color, Normal ROM , Normal temperature, Normal weight bearing. No: Jeancarlos's sign - Neurological Neuro grossly intact: Yes Cognition: Normal Orientation: AAOx4 Derrick Coma Scale Eye Opening: Spontaneous [place] Coma Scale Verbal: Oriented [place] Coma Scale Motor: Obeys Commands Derrick Coma Scale Total: 15 Speech: Normal Motor strength normal: LUE, RUE, LLE, RLE Sensory: Normal - Psychological Associated symptoms: Normal affect, Normal mood - Skin Skin Temperature: Warm Skin Moisture: Dry Skin Color: Normal Course - Re-evaluation Re-evalutation: 09/08/17 22:18 Laboratory reports were given to the [facility] worker otherwise patient is medically cleared to go to [facility] for her psychiatric evaluation. - Vital Signs Vital signs: Temp Pulse Resp BP Pulse Ox 97.5 F 83 20 118/89 H 99 09/08/17 16:41 09/08/17 16:41 09/08/17 16:41 09/08/17 16:41 09/08/17 16:41 - Laboratory Result Diagrams: 09/08/17 15:36 09/08/17 15:36 Laboratory results interpreted by me: 09/08/17 09/08/17 15:36 15:36 WBC 12.4 H BUN 6 L Glucose 113 H AST 38 H ALT 71 H Salicylates < 1.0 L Acetaminophen < 10 L Discharge - Discharge Clinical Impression: Medical clearance for psychiatric admission, Schizoaffective disorder, bipolar type Condition: Good Disposition: REHAB FACILITY Additional Instructions: Laboratory studies and physical evaluation today did not reveal any significant pathology for the patient's symptoms. I recommend she follow-up with her primary care provider. Patient should return for any concerning issues.
== END 2017-09-08 17:27 ==
LOC: ER 14:05
DX: Z02.2 Encounter for examination for admission to residential institution (principal); F25.0 Schizoaffective disorder, bipolar type
CPT/HCPCS: 36415; 80053; 80307; 81001; 84703; 85025; 99284

== ENCOUNTER 2017-11-18 13:28 | Emergency (ER) | payer MEDICAID, OTHER ==
[2017-11-18 13:54] VITALS: BP 123/68
--- NOTE | 2017-11-18 14:21 | ER Document Report ---
ED General - General Chief Complaint: Abdominal Pain Stated Complaint: ABDOMINAL PAIN Time Seen by Provider: 11/18/17 14:10 Notes: Patient is a 32-year-old female, past medical history psychiatric illnesses, presents after she is concerned about an ectopic . She has had multiple negative tests at [place], but [facility] showed her a positive test in her dreams last night. She is requesting a sonogram. Patient also complaining of left shoulder pain after she ran into a wall yesterday. Patient also with multiple other chronic complaints. She is well- known to the emergency department. Denies vaginal bleeding, dysuria, flank pain or any other new complaints. TRAVEL OUTSIDE OF THE [place] IN LAST 30 DAYS: No - Related Data Allergies/Adverse Reactions: No Known Allergies Allergy (Verified 09/08/17 14:38) Past Medical History - General Information source: Patient - Social History Smoking Status: Unknown if Ever Smoked Family History: Reviewed & Not Pertinent, Arthritis, DM, Hyperlipidemia, Hypertension Pulmonary Medical History: Reports: Hx Asthma Renal/ Medical History: Denies: Hx Peritoneal Dialysis Musculoskeltal Medical History: Reports Hx Musculoskeletal Trauma Psychiatric Medical History: Reports: Hx Anxiety, Hx Attention Deficit Hyperactivity Disorder, Hx Bipolar Disorder, Hx Schizophrenia Traumatic Medical History: Reports: Hx Fractures - Left great toe Past Surgical History: Reports: Hx Section - x1 - Immunizations Hx Diphtheria, Pertussis, Tetanus Vaccination: No Review of Systems - Review of Systems Notes: REVIEW OF SYSTEMS: CONSTITUTIONAL: -fevers, -chills EENT: -eye pain, -difficulty swallowing, -nasal congestion CARDIOVASCULAR: -chest pain, -syncope. RESPIRATORY: -cough, -SOB GASTROINTESTINAL: +lower abdominal pain, -nausea, -vomiting, -diarrhea GENITOURINARY: -dysuria, -hematuria MUSCULOSKELETAL: +left shoulder pain, -back pain, -neck pain SKIN: -rash or skin lesions. HEMATOLOGIC: -easy bruising or bleeding. LYMPHATIC: -swollen, enlarged glands. NEUROLOGICAL: -altered mental status or loss of consciousness, -headache, - neurologic symptoms PSYCHIATRIC: -anxiety, -depression. ALL OTHER SYSTEMS REVIEWED AND NEGATIVE. Physical Exam - Vital signs Vitals: Temp Pulse Resp BP Pulse Ox 97.9 F 94 18 123/68 97 11/18/17 13:53 11/18/17 13:53 11/18/17 13:53 11/18/17 13:53 11/18/17 13:53 - Notes Notes: PHYSICAL EXAMINATION: GENERAL: Well-appearing, well-nourished and in no acute distress. HEAD: Atraumatic, normocephalic. EYES: Pupils equal round and reactive to light, extraocular movements intact, sclera anicteric, conjunctiva are normal. ENT: nares patent, oropharynx clear without exudates. Moist mucous membranes. NECK: Normal range of motion, supple without lymphadenopathy LUNGS: Breath sounds clear to auscultation bilaterally and equal. No wheezes rales or rhonchi. HEART: Regular rate and rhythm without murmurs ABDOMEN: Nontender, normoactive bowel sounds. No guarding, no rebound. No masses appreciated. EXTREMITIES: Mild tenderness over left anterior shoulder. Normal range of motion , no pitting or edema. No cyanosis. NEUROLOGICAL: Cranial nerves grossly intact. Normal speech, normal gait. Normal sensory and motor exams. PSYCH: Pacing around room, repeatedly requesting a sonogram, delusional SKIN: Warm, Dry, normal turgor, no rashes or lesions noted. Course - Re-evaluation Re-evalutation: Patient is not . Without a positive test, she cannot have an ectopic . She frequently has this delusion in the ER and is in [facility] for this delusion. No fractures of her shoulder instructed her about contusion management. She is going back to [facility] right now with her ed case manager. - Vital Signs Vital signs: Temp Pulse Resp BP Pulse Ox 97.9 F 94 18 123/68 97 11/18/17 13:53 11/18/17 13:53 11/18/17 13:53 11/18/17 13:53 11/18/17 13:53 - Laboratory Laboratory results interpreted by me: 11/18/17 14:15 Urine Ketones 20 H Urine Blood MODERATE H - Diagnostic Test Radiology reviewed: Image reviewed, Reports reviewed Radiology results interpreted by me: Left shoulder x-ray: NAD Discharge - Discharge Clinical Impression: Not currently Contusion of left shoulder Qualifiers: Encounter type: initial encounter Qualified Code(s): S40.012A - Contusion of left shoulder, initial encounter Condition: Stable Disposition: HOME, SELF-CARE Additional Instructions: You are not . This is a delusion that you chronically have. Use an ice pack for your shoulder bruise. Contusion Your injury has resulted in a contusion -- a crushing of the deep tissues. No injury to important structures was detected during the physician's exam. Contusions vary in the amount of pain they cause, and in the length of time required for healing. Typically, the area will become bruised, and will remain painful to touch for two or three weeks. However, most patients are back to working and playing within a few days. After the initial period of rest and cold-packs, your symptoms (together with the doctor's recommendations) will determine how rapidly you can get back to full activity. Usually this means "do what feels okay, but don't do things that hurt." If re-examination was recommended, it's important to follow up as instructed. Call the doctor or return any time if pain increases, if swelling becomes severe, if you develop numbness or weakness in an injured extremity, or if any other alarming symptoms occur.
--- NOTE | 2017-11-18 14:49 | RADIOLOGY REPORT (SQ) ---
EXAM DESCRIPTION: SHOULDER LEFT 2 OR MORE VIEWS COMPLETED DATE/TIME: 11/18/2017 2:36 pm REASON FOR STUDY: left shoulder pain COMPARISON: None. NUMBER OF VIEWS: Three views. TECHNIQUE: Internal rotation, external rotation, and Y view images acquired of the left shoulder. LIMITATIONS: None. FINDINGS: MINERALIZATION: Normal. BONES: No acute fracture or dislocation. No worrisome bone lesions. No significant osteophytes. GLENOHUMERAL JOINT: No significant findings. ACROMIOCLAVICULAR JOINT: No large osteophytes. SOFT TISSUES: No calcifications. VISUALIZED RIBS, SPINE, AND LUNG: No other significant finding. OTHER: No other significant finding. IMPRESSION: NEGATIVE STUDY OF THE LEFT SHOULDER. NO RADIOGRAPHIC EVIDENCE OF ACUTE INJURY. NO EXPLAN ATION FOR PAIN. TECHNICAL DOCUMENTATION: JOB ID: [id number] [employer]- All Rights Reserved Reading location - IP/workstation name: [email or web address]
[2017-11-18 14:53] LABS: APPEARANCE,URINE CLEAR; BILIRUBIN,URINE NEGATIVE (NEGATIVE); COLOR,URINE YELLOW; GLUCOSE, URINE NEGATIVE (NEGATIVE); KETONES,URINE 20 mg/dL (NEGATIVE); LEUKOCYTE ESTERASE,URINE NEGATIVE (NEGATIVE); NITRITE,URINE NEGATIVE (NEGATIVE); PROTEIN,URINE NEGATIVE (NEGATIVE); URINE SPECIFIC GRAVITY 1.015; UROBILINOGEN,URINE NEGATIVE mg/dL (<2.0)
== END 2017-11-18 15:23 | disposition home or self-care (01) ==
LOC: ER 13:28
DX: S40.012A Contusion of left shoulder, initial encounter (principal); M25.512 Pain in left shoulder; W22.01XA Walked into wall, initial encounter; Z32.02 Encounter for pregnancy test, result negative; R10.30 Lower abdominal pain, unspecified; J45.909 Unspecified asthma, uncomplicated; F22 Delusional disorders
CPT/HCPCS: 81001; 81025; 99284